=== PATIENT | female | born 1930 | race Caucasian/White ===

== ENCOUNTER 2017-08-25 14:52 | Inpatient (IN) | payer MEDICARE, OTHER ==
[~2017-08-25] VITALS: Ht 170.2 cm; Wt 88.0 kg
[~2017-08-25 14:52] MED LIST: ATEN50TA PO; HYDR-3204 PO; HYDR-4076 PO; LEVO500T15 PO; PRAV20TA4 PO
--- NOTE | 2017-08-25 14:55 | NUR ---
BB RA 80 FROM HOME ALTERED MENTAL STATUS, HYPOTENSIVE. BS 114 IN FIELD. PATIENT REPSONDS TO PAINFUL STIMULI, UNABLE TO OBTAIN HISTORY. BREATHING EVEN AND UNLABORED. PATIENT PLACED ON SIMPLE MASK, O2 SATURATION 89% ON ROOM AIR. AWAITING MD ORDERS.
[2017-08-25] MEDS ORDERED: IV NS 0.9% 1,000 ML BAG IV ONE (15:30)
[2017-08-25] MEDS ORDERED: CEFTRIAXONE 1GM BAG (ER ONLY) 50 ML IV ONE ×2 (15:30→15:51)
--- NOTE | 2017-08-25 15:36 | NUR ---
CALLED NURSING SUP. FOR TELE BED
--- NOTE | 2017-08-25 15:40 | NUR ---
SECOND IV STARTED ON LAC, 18 G. PATENT AND INTACT.
[2017-08-25 15:54] LABS: BASOPHILS % (AUTO) 0.4 % (0.0-2.0); EOSINOPHILS # (AUTO) 0.2 /CMM (0.0-0.7); EOSINOPHILS % (AUTO) 3.1 % (0.0-6.0); HEMATOCRIT 35 % (33-45); HEMOGLOBIN 11.5 g/dL (11.5-14.8); LYMPHOCYTES # (AUTO) 1.9 /CMM (0.8-4.8); LYMPHOCYTES % (AUTO) 25.9 % (20.0-44.0); MEAN CORPUSCULAR HEMOGLOBIN 30 PG (26.0-33.0); MEAN CORPUSCULAR HGB CONC 33 g/dl (31.0-36.0); MEAN CORPUSCULAR VOLUME 91 fL (82-100); MONOCYTES # (AUTO) 0.5 /CMM (0.1-1.30); NEUTROPHILS # (AUTO) 4.7 /CMM (1.8-8.9); NEUTROPHILS % (AUTO) 63.6 % (43.0-81.0); PLATELET COUNT (AUTO) 250 /CMM (150-450); RDW COEFFICIENT OF VARIATION 12.9 (11.5-15.0); RED BLOOD CELL COUNT(AUTO) 3.86 MIL/uL (4.0-5.2); WHITE BLOOD COUNT (AUTO) 7.3 K/uL (4.3-11.0)
[2017-08-25 16:08] LABS: INR 0.95 (0.87-1.13); PROTHROMBIN TIME 9.9 SECS (9.5-12.7)
[2017-08-25 16:09] LABS: TROPONIN I < 0.017 ng/mL (0.00-0.056)
[2017-08-25] MEDS ORDERED: HYDR-3652 PO (16:09)
[2017-08-25] MEDS ORDERED: VENL75CA62 PO (16:09)
[2017-08-25] MEDS ORDERED: CLON0.1T PO (16:09)
[2017-08-25] MEDS ORDERED: LOSA100T15 PO (16:09)
--- NOTE | 2017-08-25 16:10 | NUR ---
PATIENT TAKEN TO CT VIA STRETCHER.
[2017-08-25 16:12] LABS: CALCIUM, SERUM 9.3 mg/dL (8.5-10.1); CARBON DIOXIDE 28 mmol/L (21-32); CHLORIDE 103 mmol/L (98-107); CREATININE 1.3 mg/dL (0.6-1.3); GLUCOSE 111 mg/dL (74-106); POTASSIUM 4.3 mmol/L (3.5-5.1); SODIUM SERUM 138 mmol/L (136-145); UREA NITROGEN, BLOOD 27 mg/dL (7-18)
[2017-08-25 16:26] LABS: ALANINE AMINOTRANSFERASE 28 U/L (12-78); ALBUMIN 3.1 g/dL (3.4-5.0); ALKALINE PHOSPHATASE 78 U/L (46-116); ASPARTATE AMINOTRANSFERASE 21 U/L (15-37); BILIRUBIN,DIRECT 0.1 mg/dL (0.0-0.2); BILIRUBIN,TOTAL 0.3 mg/dL (0.2-1.0); TOTAL PROTEIN, SERUM 6.4 g/dL (6.4-8.2)
--- NOTE | 2017-08-25 16:53 | NUR ---
DR.RUTHERFORD RICHY COMMUNICATIONS PROJECT MANAGER, TRANSFERRED CALL TO
--- NOTE | 2017-08-25 17:02 | NUR ---
URINE OBTAINED VIA STRAIGHT CATH PER MD ORDERS AND SENT TO LAB.
[2017-08-25 17:08] LABS: APPEARANCE,URINE Slightly Cloudy (CLEAR); BILIRUBIN,URINE Negative (NEGATIVE); BLOOD, URINE Negative Ery/uL (NEGATIVE); COLOR,URINE Yellow (YELLOW); KETONES,URINE Negative (NEGATIVE); LEUKOCYTE ESTERASE ,URINE Small (NEGATIVE); NITRITE, URINE Negative (NEGATIVE); PROTEIN,URINE Negative (NEGATIVE); UGLUCOSE Negative (NEGATIVE); UROBILINOGEN,URINE 0.2 EU/dL (0.2)
[2017-08-25 17:29] LABS: BACTERIA,URINE Few /HPF (None Seen); RBC,URINE NONE SEEN /HPF (0-2); SQUAMOUS EPITHELIAL CELL,UR Few /HPF (None Seen)
[2017-08-25] MEDS ORDERED: ONDANSETRON HCL/PF 4 MG/2 ML VIAL IVP PRN (17:30)
[2017-08-25] MEDS ORDERED: ZOLPIDEM TARTRATE 5 MG TABLET PO PRN (17:30)
[2017-08-25] MEDS ORDERED: Z GUARD REMEDY 2 OZ OINT TP PRN (17:30)
[2017-08-25] MEDS ORDERED: MAG HYDROX/AL HYDROX/SIMETH 30 ML UDC PO PRN (17:30)
[2017-08-25] MEDS ORDERED: HYDROCODONE/APAP 5/325MG 1 EACH TABLET PO PRN (17:30)
[2017-08-25] MEDS ORDERED: ACETAMINOPHEN 325 MG TABLET PO PRN (17:30)
[2017-08-25] MEDS ORDERED: MAGNESIUM HYDROXIDE 30 ML UDC PO PRN (17:30)
--- NOTE | 2017-08-25 17:38 | NUR ---
TELE 322-2
--- NOTE | 2017-08-25 18:02 | NUR ---
REPORT GIVEN TO RNALEX FOR ADMISSION, PENDING CTPA
[2017-08-25] MEDS ORDERED: IOHEXOL-350 100 ML VIAL IV ONE (18:04)
[2017-08-25] MEDS ORDERED: IV NS 0.9% 250 ML IV ONE (18:05)
--- NOTE | 2017-08-25 18:13 | NUR ---
PATIENT TAKEN TO CTPA VIA STRETCHER.
--- NOTE | 2017-08-25 18:28 | NUR ---
PATIENT RETURNED FROM CT IN STABLE CONDITION.
--- NOTE | 2017-08-25 19:11 | NUR ---
REPORT RECEIVED FROM NAVDEEP PATEL FOR JERO.
--- NOTE | 2017-08-25 19:15 | NUR ---
REPORT GIVEN TO JUNIOR RECRUITERIMAN SETHI FOR JERO.
--- NOTE | 2017-08-25 19:30 | NUR ---
PATIENT TRANSPORTED TO [facility] VIA ACLS PROTOCOL FOR ADMISSION. RN, ALEX/JAY TO PROVIDE JERO.
--- NOTE | 2017-08-25 19:30 | NUR ---
FRONT MAN OPENING NOTES RECEIVE PT VIA GURSANDRA FROM E.R ACLS PROTOCOL PT A/O X1, NO S/S OF DISTRESS NOTED. TOLERATING ROOM AIR NOW 95% STABLE CONDITION. BREATHING EVEN AND UNLABORED, SAFETY MEASURES IN PLACE, BED LOCKED AND IN LOWEST POSITION, CALL LIGHT IN REACH. WILL CONTINUE TO MONITOR.
[2017-08-25] MEDS: CEFTRIAXONE 1 G in IV D5W 50 ML IV SCH (19:58)
[2017-08-25 20:00] VITALS: BP 147/79
--- NOTE | 2017-08-25 21:00 | NUR ---
HEAD TO TOE ASSESSMENT IS DONE SKIN IS INTACT, ASSISTED AMBULATE TO THE RESTROOM WITH 1 ASSIST, VOIDED FREELY
--- NOTE | 2017-08-25 23:40 | NUR ---
PATIENT NO COMPLAINS AT THIS TIME NO SOB NO CHEST PAIN WILL CONTINUE TO MONITOR
[2017-08-26] VITALS: BP 141/74
[2017-08-26 04:00] VITALS: BP 147/69
--- NOTE | 2017-08-26 06:33 | NUR ---
MS RN CLOSING NOTES RESTING IN BED ASLEEP AND EASILY AWAKEN. HEAD OF BED ELEVATED FOR BETTER LUNG EXPANSION, TOLERATING ROOM AIR 02 SAT 98% PT WAS MOVED TO 325-1 WITH NO INCIDENT. RESPIRATIONS EVEN AND UNLABORED. IN STABLE CONDITION NO S/S OF ACUTE DISTRESS, NO COMPLAINS OF PAIN AT THIS TIME. NO COMPLAINS OF CHEST PAIN THROUGHOUT THE SHIFT. AFEBRILE, NURSING CARE RENDERED, NEEDS ATTENDED AND ANTICIPATED, KEPT CLEAN AND DRY AND COMFORTABLE. GOOD SKIN CARE PROVIDED. FREQUENT VISUAL CHECK DONE FOR SAFETY EVERY 2 HOURS. SAFE HAZARD FREE ENVIRONMENT PROVIDED. CALL LIGHT WITHIN EASY TO REACH, ON LOW BED AT ALL TIMES TO ENSURE SAFETY, WILL ENDORSE TO THE NEXT SHIFT CONTINUE PLAN OF CARE. Addendum: 08/26/17 at 0640 by JYA ADAMS RN ADDENDUM: MISTAKEN ENTRY DISREGARD THIS DOCUMENTATION THIS FOR DIFFERENT PATIENT
--- NOTE | 2017-08-26 06:41 | NUR ---
COGENERATION OPERATOR CLOSING NOTES RESTING IN BED ASLEEP AND EASILY AWAKEN. A/O X1, TOLERATING ROOM AIR 02 SAT 94%, HOB, RESPIRATIONS EVEN AND UNLABORED. ATTACHED TO TELE MONITOR SR, 90'S IN STABLE CONDITION NO S/S OF ACUTE DISTRESS, NO COMPLAINS OF PAIN AT THIS TIME. NO COMPLAINS OF CHEST PAIN THROUGHOUT THE SHIFT. AFEBRILE, KEPT CLEAN AND DRY AND COMFORTABLE. NURSING CARE RENDERED, NEEDS ATTENDED AND ANTICIPATED, GOOD SKIN CARE PROVIDED. FREQUENT VISUAL CHECK DONE FOR SAFETY EVERY 2 HOURS. SAFE HAZARD FREE ENVIRONMENT PROVIDED. CALL LIGHT WITHIN EASY TO REACH, ON LOW BED AT ALL TIMES TO ENSURE SAFETY, WILL ENDORSE TO THE NEXT SHIFT CONTINUE PLAN OF CARE.
--- NOTE | 2017-08-26 07:05 | NUR ---
CERTIFIED NURSES' AIDE OPENING NOTES RECEIVED PT FROM NIGHTSHIFT NURSE IN STABLE CONDITION. PT IS A/O X1 AND CONFUSED. NO SOB OR SIGNS OF DISTRESS NOTED. BREATHING IS EVEN AND UNLABORED. PT IS ON ROOM AIR AND SATING WELL AT 95%. PT IS SR ON THE TELE MONITOR WITH A HR OF 84. MULTIPLE IVS NOTED ON RIGHT AC 20G AND LEFT AC 18G. BOTH IVS ARE PATENT TO NS FLUSH AND INTACT. NO REDNESS OR SIGNS OF INFILTRATION NOTED. BED IN LOW LOCKED POSITION, SIDE RAILS UP X3, CALL LIGHT WITHIN REACH, BED ALARM ON. WILL CONTINUE TO MONITOR
[2017-08-26 08:00] VITALS: BP 153/81
[2017-08-26 08:38] LABS: CALCIUM, SERUM 9.1 mg/dL (8.5-10.1); CARBON DIOXIDE 29 mmol/L (21-32); CHLORIDE 105 mmol/L (98-107); CREATININE 0.9 mg/dL (0.6-1.3); GLUCOSE 128 mg/dL (74-106); PHOSPHORUS 3.6 mg/dL (2.5-4.9); POTASSIUM 4.3 mmol/L (3.5-5.1); SODIUM SERUM 144 mmol/L (136-145); UREA NITROGEN, BLOOD 18 mg/dL (7-18)
[2017-08-26] MEDS: VENLAFAXINE XR 75 MG CAP.SR.24H PO SCH (08:53)
[2017-08-26 08:55] LABS: BASOPHILS % (AUTO) 0.3 % (0.0-2.0); EOSINOPHILS % (AUTO) 0.1 % (0.0-6.0); HEMATOCRIT 40 % (33-45); HEMOGLOBIN 12.9 g/dL (11.5-14.8); LYMPHOCYTES # (AUTO) 0.8 /CMM (0.8-4.8); LYMPHOCYTES % (AUTO) 4.9 % (20.0-44.0); MEAN CORPUSCULAR HEMOGLOBIN 29 PG (26.0-33.0); MEAN CORPUSCULAR HGB CONC 32 g/dl (31.0-36.0); MEAN CORPUSCULAR VOLUME 92 fL (82-100); MONOCYTES # (AUTO) 0.8 /CMM (0.1-1.30); MONOCYTES % (AUTO) 4.9 % (2.0-12.0); NEUTROPHILS # (AUTO) 15.1 /CMM (1.8-8.9); NEUTROPHILS % (AUTO) 89.8 % (43.0-81.0); PLATELET COUNT (AUTO) 242 /CMM (150-450); RDW COEFFICIENT OF VARIATION 12.7 (11.5-15.0); RED BLOOD CELL COUNT(AUTO) 4.38 MIL/uL (4.0-5.2); WHITE BLOOD COUNT (AUTO) 16.8 K/uL (4.3-11.0)
--- NOTE | 2017-08-26 14:53 | NUR ---
MS RN NOTES PT IS TRYING TO PULL OUT IVS AND GET OUT OF BED. DR GAYLE WAS CALLED AND PLACED AN ORDER FOR BILATERAL SOFT WRIST RESTRAINTS
[2017-08-26 16:00] VITALS: BP 137/58
[2017-08-26] MEDS: LORAZEPAM 1 MG TABLET PO PRN (17:16)
--- NOTE | 2017-08-26 18:53 | NUR ---
MS RN CLOSING NOTES PT REMAINS IN STABLE CONDITION. ALL NEEDS WERE MET DURING SHIFT AND ORDERS CARRIED OUT ACCORDINGLY. ALL DUE MEDS GIVEN. PT DENIES ANY SOB AT THIS TIME. BREATHING REMAINED EVEN AND UNLABORED ALL THROUGHOUT SHIFT. SAFETY MEASURES REMAIN IN PLACE. WILL ENDORSE TO NIGHTSHIFT NURSE FOR JERO
--- NOTE | 2017-08-26 19:15 | NUR ---
MS/RN NOTES RECEIVED PT. LYING IN BED AWAKE, ALERT AND ORIENTED X1-2 WITH PERIODS OF CONFUSION. BREATHING EVEN AND UNLABORED ON ROOM AIR. NO SOB, RESPIRATORY DISTRESS OR COMPLAINTS OF PAIN NOTED AT THIS TIME. PT. WITH LEFT AC 18 GAUGE IV SALINE LOCK PRESENT, PATENT AND INTACT. BED LOCKED AND IN LOWEST POSITION, SIDE RAILS UP X2, BED ALARM ON, CALL LIGHT WITHIN REACH, WILL CONTINUE TO MONITOR.
[2017-08-26 20:00] VITALS: BP 132/60
[2017-08-26] MEDS: CEFTRIAXONE 1 G in IV D5W 50 ML IV SCH (20:14)
--- NOTE | 2017-08-26 20:25 | NUR ---
MS/RN NOTES PT. IS CALM, QUIET, LYING IN BED RESTING. PT. DOES NOT NEED BILATERAL SOFT WRIST RESTRAINTS AT THIS TIME. BED LOCKED AND IN LOWEST POSITION, SIDE RAILS UP X3, CALL LIGHT WITHIN REACH, WILL CONTINUE TO MONITOR.
--- NOTE | 2017-08-27 06:50 | NUR ---
MS/RN NOTES PT. IS LYING IN BED RESTING. BREATHING EVEN AND UNLABORED ON ROOM AIR. NO SOB, RESPIRATORY DISTRESS OR COMPLAINTS OF PAIN NOTED AT THIS TIME AND THROUGHOUT SHIFT. PT. WITH LEFT AC 18 GAUGE IV SALINE LOCK PRESENT, PATENT AND INTACT. ALL PT. NEEDS MET. BED LOCKED AND IN LOWEST POSITION, SIDE RAILS UP X2, BED ALARM ON, CALL LIGHT WITHIN REACH, WILL ENDORSE TO DAYSHIFT NURSE FOR CONTINUITY OF CARE.
[2017-08-27 07:57] VITALS: BP 140/97
[2017-08-27 08:00] VITALS: BP 140/97
--- NOTE | 2017-08-27 08:00 | NUR ---
RN NOTES RECEIVED PATIENT IN THE T BED, A/O X2/3, NO ACUTE DISTRESS, NO RESPIRATORY DISTRESS, IV LINE LEFT AC AREA INTACT, PT MED COMPLIANT, V/S TAKEN, PATIENT HAS NO ACUTE DISTRESS, CALL LIGHT WITHIN TO REACH, NEEDS ATTENDED AND ANTICIPATED, PATIENT TURN AND REPOSITION SELF IN THE BED, SAFETY PRECAUTION MAINTAINED WITH HELP OF RECYCLING ATTENDANT ALL THE TIME.
[2017-08-27] MEDS: VENLAFAXINE XR 75 MG CAP.SR.24H PO SCH (09:08)
[2017-08-27] MEDS: HYDROCODONE/APAP 5/325MG 1 EACH TABLET PO PRN ×3 (09:17→21:23)
--- NOTE | 2017-08-27 09:17 | NUR ---
RN NOTES ADMINISTERED NARCO 5/325 MG PO PRN FOR GENERALIZED PAIN 03/25, PER PATIENT REQUEST, V/S TAKEN BP -140/97, P-115, CONTINUED MONITORING. PATIENT HAS NO RESPIRATORY DISTRESS, CALM, REDIRECTABLE, CALL LIGHT WITHIN TO REACH, SAFETY PRECAUTION MAINTAINED ALL THE TIME. BED ALARM ON.
--- NOTE | 2017-08-27 11:35 | NUR ---
RN NOTES PATIENT IN THE BED, NO ACUTE DISTRESS, MEDICATION WERE ADMINISTERED FOR PAIN EFFECTIVE, PATIENT WATCHING TV,. CALL LIGHT WITHIN TO REACH, SAFETY PRECAUTION MAINTAINED ALL THE TIME. BED ALARM ON. CONTINUED MONITORING.
--- NOTE | 2017-08-27 14:14 | NUR ---
RN NOTES PATIENT IN THE BED, NO ACUTE DISTRESS, TALKING BY PHONE, NO ACUTE DISTRESS, V/S RETAKEN BP-131/64, P-105. NOTIFIED DR GAYLE AND GET ORDER OF PATIENT HOME MEDICATION. BED ALARM ON, CALL LIGHT WITHIN TO REACH, SAFETY PRECAUTION MAINTAINED ALL THE TIME.
[2017-08-27] MEDS ORDERED: CLONIDINE HCL 0.1 MG TABLET PO PRN ×2 (14:30→21:00)
[2017-08-27 14:47] LABS: BASOPHILS % (AUTO) 0.2 % (0.0-2.0); EOSINOPHILS # (AUTO) 0.2 /CMM (0.0-0.7); EOSINOPHILS % (AUTO) 2.2 % (0.0-6.0); HEMATOCRIT 37 % (33-45); HEMOGLOBIN 11.8 g/dL (11.5-14.8); LYMPHOCYTES # (AUTO) 1.7 /CMM (0.8-4.8); MEAN CORPUSCULAR HEMOGLOBIN 30 PG (26.0-33.0); MEAN CORPUSCULAR HGB CONC 32 g/dl (31.0-36.0); MEAN CORPUSCULAR VOLUME 91 fL (82-100); MONOCYTES # (AUTO) 0.8 /CMM (0.1-1.30); MONOCYTES % (AUTO) 7.8 % (2.0-12.0); NEUTROPHILS % (AUTO) 71.8 % (43.0-81.0); PLATELET COUNT (AUTO) 286 /CMM (150-450); RDW COEFFICIENT OF VARIATION 13.1 (11.5-15.0); RED BLOOD CELL COUNT(AUTO) 4.02 MIL/uL (4.0-5.2); WHITE BLOOD COUNT (AUTO) 9.7 K/uL (4.3-11.0)
[2017-08-27 15:04] LABS: ALANINE AMINOTRANSFERASE 22 U/L (12-78); ALBUMIN 2.9 g/dL (3.4-5.0); ALKALINE PHOSPHATASE 74 U/L (46-116); ASPARTATE AMINOTRANSFERASE 18 U/L (15-37); BILIRUBIN,TOTAL 0.2 mg/dL (0.2-1.0); CARBON DIOXIDE 28 mmol/L (21-32); CHLORIDE 104 mmol/L (98-107); CREATININE 1.2 mg/dL (0.6-1.3); GLUCOSE 168 mg/dL (74-106); POTASSIUM 3.7 mmol/L (3.5-5.1); SODIUM SERUM 139 mmol/L (136-145); TOTAL PROTEIN, SERUM 6.7 g/dL (6.4-8.2); UREA NITROGEN, BLOOD 19 mg/dL (7-18)
[2017-08-27 16:00] VITALS: BP_SYST 136; BP_SYST 146; BP_DIAS 76; BP_DIAS 89
[2017-08-27] MEDS ORDERED: LOSARTAN POTASSIUM 50 MG TABLET PO SCH (17:00)
--- NOTE | 2017-08-27 17:30 | NUR ---
RN NOTES PATIENT IN THE BED, NO RESPIRATORY DISTRESS, PATIENT C/O PAIN 8/10 GENERALIZED, ADMINISTERED NARCO 5/325 MG PO PRN , PER PATIENT REQUEST, V/S TAKEN BP 146/76, P-95, NEEDS ATTENDED AND ANTICIPATED, CALL LIGHT WITHIN TO REACH, BED ALARM ON, SAFETY PRECAUTION MAINTAINED ALL THE TIME.
--- NOTE | 2017-08-27 19:00 | NUR ---
RN NOTES PATIENT IN THE BED, MEDICATION WERE ADMINISTERED FOR PAIN EFFECTIVE, V/S STABLE, MED COMPLIANT. CALL LIGHT WITHIN TO REACH, NEEDS ATTENDED AND ANTICIPATED. NO ACUTE DISTRESS, NO RESPIRATORY DISTRESS. ENDORSED ONCOMING NURSE FOR CONTINUATION OF CARE.
--- NOTE | 2017-08-27 19:40 | NUR ---
RN OPENING NOTES PT IS RESTING IN BED. NO APPARENT S/S OF PAIN OR DISTRESS. NO COMPLAINTS OF SOB OR RESPIRATORY DISTRESS. PT HAS A LEFT AC #18 IV, INTACT AND PATENT, HL. SAFETY PRECAUTIONS IN PLACE. BED IN LOW, LOCKED POSITION, 3X SIDE RAILS UP, AND CALL LIGHT WITHIN REACH. WILL CONTINUE TO MONITOR PT.
[2017-08-27 20:00] VITALS: BP 149/63
[2017-08-27] MEDS: CEFTRIAXONE 1 G in IV D5W 50 ML IV SCH (20:35)
[2017-08-27] MEDS: CLONIDINE HCL 0.1 MG TABLET PO SCH ×3 (21:00→21:46)
--- NOTE | 2017-08-27 21:23 | NUR ---
PT REQUESTED PRN NORCO 5/325MG FOR PAIN IN THE ABDOMEN (05/25). WILL ADMINISTER AND CONTINUE TO MONITOR.
--- NOTE | 2017-08-27 21:23 | NUR ---
PT REQUESTED MILK OF MAGNESIA FOR CONSTIPATION 3xDAYS. WILL ADMINISTER AND CONTINUE TO MONITOR.
[2017-08-27] MEDS: LORAZEPAM 1 MG TABLET PO PRN (22:22)
--- NOTE | 2017-08-27 22:22 | NUR ---
PT REFUSED ATIVAN. PT REQUESTED PRN ATIVAN. PRIOR TO ADMINISTRATION PT STATED THAT SHE "DID NOT WANT TO TAKE ATIVAN ANYMORE."
--- NOTE | 2017-08-28 03:16 | NUR ---
PT REQUESTED PRN AMBIEN 5MG. PT STATED SHE WAS "UNABLE TO SLEEP". WILL ADMINISTER AND CONTINUE TO MONITOR.
[2017-08-28 06:35] LABS: BASOPHILS % (AUTO) 0.4 % (0.0-2.0); EOSINOPHILS # (AUTO) 0.3 /CMM (0.0-0.7); EOSINOPHILS % (AUTO) 3.5 % (0.0-6.0); HEMATOCRIT 36 % (33-45); HEMOGLOBIN 11.7 g/dL (11.5-14.8); LYMPHOCYTES # (AUTO) 2.1 /CMM (0.8-4.8); LYMPHOCYTES % (AUTO) 23.8 % (20.0-44.0); MEAN CORPUSCULAR HEMOGLOBIN 30 PG (26.0-33.0); MEAN CORPUSCULAR HGB CONC 33 g/dl (31.0-36.0); MEAN CORPUSCULAR VOLUME 92 fL (82-100); MONOCYTES # (AUTO) 0.9 /CMM (0.1-1.30); MONOCYTES % (AUTO) 9.7 % (2.0-12.0); NEUTROPHILS # (AUTO) 5.5 /CMM (1.8-8.9); NEUTROPHILS % (AUTO) 62.6 % (43.0-81.0); PLATELET COUNT (AUTO) 254 /CMM (150-450); RDW COEFFICIENT OF VARIATION 12.9 (11.5-15.0); WHITE BLOOD COUNT (AUTO) 8.8 K/uL (4.3-11.0)
[2017-08-28 07:00] LABS: CALCIUM, SERUM 8.9 mg/dL (8.5-10.1); CARBON DIOXIDE 29 mmol/L (21-32); CHLORIDE 103 mmol/L (98-107); CREATININE 1.1 mg/dL (0.6-1.3); GLUCOSE 92 mg/dL (74-106); MAGNESIUM 2.1 mg/dL (1.8-2.4); PHOSPHORUS 4.2 mg/dL (2.5-4.9); POTASSIUM 3.9 mmol/L (3.5-5.1); SODIUM SERUM 139 mmol/L (136-145); UREA NITROGEN, BLOOD 24 mg/dL (7-18)
--- NOTE | 2017-08-28 07:18 | NUR ---
RN CLOSING NOTES PT IS SLEEPING IN BED. NO SIGNIFICANT CHANGES OVERNIGHT. NO APPARENT S/S OF PAIN OR DISTRESS. NO COMPLAINTS OF SOB OR RESPIRATORY DISTRESS. PT HAS A LEFT AC #18 IV, INTACT AND PATENT, HL. PT GIVEN MOM TO ADDRESS CONSTIPATION x3 DAYS, NO BM OVERNIGHT. SAFETY PRECAUTIONS IN PLACE. BED IN LOW, LOCKED POSITION, 3X SIDE RAILS UP, AND CALL LIGHT WITHIN REACH. WILL ENDORSE TO THE DAY SHIFT NURSE FOR CONTINUITY OF CARE.
[2017-08-28 08:00] VITALS: BP 129/72
--- NOTE | 2017-08-28 08:00 | NUR ---
RN NOTES RECEIVED PATIENT IN THE BED, NO RESPIRATORY DISTRESS, PATIENT REFUSED PAIN AT THIS TIME. ENCOURAGED TO EXPRESS FEELINGS AND CONCERNS, PATIENT MED COMPLIANT., V/S STABLE. PATIENT HAS A IV LINE LEFT AC AREA INTACT, NEEDS ATTENDED AND ANTICIPATED, CALL LIGHT WITHIN TO REACH, SAFETY PRECAUTION MAINTAINED ALL THE TIME.
[2017-08-28] MEDS: VENLAFAXINE XR 75 MG CAP.SR.24H PO SCH (08:46)
[2017-08-28] MEDS ORDERED: LOSARTAN POTASSIUM 50 MG TABLET PO SCH (09:00)
--- NOTE | 2017-08-28 12:30 | NUR ---
RN NOTES PATIENT WITH THE RT AT THIS TIME, WALKING IN THE HALLWAY, NO ACUTE /NO RESPIRATORY DISTRESS, NO C/O PAIN,PT A/O X3. CONTINUED MONITORING.
[2017-08-28 16:00] VITALS: BP 146/78
--- NOTE | 2017-08-28 18:10 | NUR ---
RN NOTES PATIENT STABLE AT THIS TIME, GOING TO GO HOME. NO ACUTE DISTRESS, NO RESPIRATORY DISTRESS, NO C/O PAIN. PATIENT GOING TO D/C HOME. CALL LIGHT WITHIN TO REACH, SAFETY PRECAUTION MAINTAINED ALL THE TIME.
[2017-08-28] MEDS ORDERED: CEPH-570 PO (18:38)
--- NOTE | 2017-08-28 19:03 | NUR ---
DAYCARE TEACHER NOTES PATIENT DISCHARGE AT THIS TIME GOING HOME. PATIENT A/O X3, MED COMPLIANT, V/S STABLE, NO C/O PAIN, MEDICALLY STABLE TO D/C AT THIS TIME. MED RECONCILIATION, AND DISCHARGE ORDER REVIEWED AND EXPLAINED TO PATIENT AND SON. PATIENT VERBALIZED UNDERSTANDING. BELONGING RETURNED BACK TO THE PATIENT. ESCORTED PATIENT TO THE LOBBY FOR SAFETY. PATIENT STAFFING ACCOUNT MANAGER BY WILFRED RAMIREZ PHONE # [phone].
== END 2017-08-28 19:07 | disposition home or self-care (01) | DRG 871 ==
LOC: ER 14:52 → TELE 17:50 → MED 08-26 11:14
PROVIDERS: ADMIT Internal Medicine; ATTEND Internal Medicine
DX: A41.9 Sepsis, unspecified organism (principal); G92 Toxic encephalopathy; J96.01 Acute respiratory failure with hypoxia; E43 Unspecified severe protein-calorie malnutrition; N17.0 Acute kidney failure with tubular necrosis; I50.33 Acute on chronic diastolic (congestive) heart failure; G93.89 Other specified disorders of brain; F03.90 Unspecified dementia, unspecified severity, without behavioral disturbance, psychotic disturbance, mood disturbance, and anxiety; N39.0 Urinary tract infection, site not specified; I11.0 Hypertensive heart disease with heart failure; M79.7 Fibromyalgia; Z96.643 Presence of artificial hip joint, bilateral; Z98.2 Presence of cerebrospinal fluid drainage device; E78.5 Hyperlipidemia, unspecified; Z88.2 Allergy status to sulfonamides; Z79.899 Other long term (current) drug therapy
CPT/HCPCS: 36415; 70450-TC; 71010-TC; 80048-TC; 80053-TC; 80076-TC; 81000-TC; 82962-TC; 83605-TC; 83735-TC; 84100-TC; 84484-TC; 85025-TC; 85730-TC; 87040-TC; 87081-TC; 87086-TC; 93307-TC; A4606; J0696; J7030; J7050; J7060; Q9967; Z7610

== ENCOUNTER 2017-09-19 12:04 | Emergency (ER) | payer OTHER ==
[~2017-09-19 12:04] MED LIST changes: -ATEN50TA PO; +CEPH-570 PO; +CLON0.1T PO; -HYDR-3204 PO; +HYDR-3652 PO; -HYDR-4076 PO; -LEVO500T15 PO; +LOSA100T15 PO; -PRAV20TA4 PO; +VENL75CA62 PO
--- NOTE | 2017-09-19 12:04 | NUR ---
RECIEVED PT TO ED BED 04, PT WAS BB RA FROM HOME FOR AMS, POSSIBLE OD OF NARCOTICS. SON CALLED 911. PT WAS GIVEN NARCAN EN ROUTE. PT STILL APPEARS DROWSY AND UNABLE TO PROVIDE INFORMATON AT THIS TIME. RESPONDS TO TACTILE AND PAINFUL STIMULI. GOWNED AND PLACED ON CONT MONITORING. ALL NEEDS ARE ATTENDED, KEPT WARM AND COMFORTABLE. WILL CONT TO MONITOR
[2017-09-19] MEDS ORDERED: NALOXONE PREFILLED SYRINGE 2 MG/2 ML SYRINGE ONE (12:12)
--- NOTE | 2017-09-19 12:18 | NUR ---
PT IS NOW MORE AWAKE AFTER NARCAN. PT STS SHE TAKES NARCOTIC FOR CHRONIC PAIN. ON CONT MONITORING.
[2017-09-19] MEDS ORDERED: IV NS 0.9% 1,000 ML BAG IV ONE (12:30)
[2017-09-19] MEDS ORDERED: NALOXONE HCL 0.4 MG/ML AMPUL IV ONE (12:30)
[2017-09-19 12:41] LABS: BASOPHILS # (AUTO) 0.1 /CMM (0.0-0.2); BASOPHILS % (AUTO) 1.7 % (0.0-2.0); EOSINOPHILS # (AUTO) 0.2 /CMM (0.0-0.7); EOSINOPHILS % (AUTO) 3.5 % (0.0-6.0); HEMATOCRIT 35 % (33-45); HEMOGLOBIN 11.6 g/dL (11.5-14.8); LYMPHOCYTES # (AUTO) 1.4 /CMM (0.8-4.8); LYMPHOCYTES % (AUTO) 21.3 % (20.0-44.0); MEAN CORPUSCULAR HEMOGLOBIN 29 PG (26.0-33.0); MEAN CORPUSCULAR HGB CONC 33 g/dl (31.0-36.0); MEAN CORPUSCULAR VOLUME 89 fL (82-100); MONOCYTES # (AUTO) 0.4 /CMM (0.1-1.30); MONOCYTES % (AUTO) 6.5 % (2.0-12.0); NEUTROPHILS # (AUTO) 4.4 /CMM (1.8-8.9); PLATELET COUNT (AUTO) 232 /CMM (150-450); RDW COEFFICIENT OF VARIATION 12.7 (11.5-15.0); RED BLOOD CELL COUNT(AUTO) 3.96 MIL/uL (4.0-5.2); WHITE BLOOD COUNT (AUTO) 6.5 K/uL (4.3-11.0)
[2017-09-19 12:49] LABS: CARBON DIOXIDE 27 mmol/L (21-32); CHLORIDE 106 mmol/L (98-107); CREATININE 1.3 mg/dL (0.6-1.3); GLUCOSE 156 mg/dL (74-106); POTASSIUM 4.2 mmol/L (3.5-5.1); SODIUM SERUM 140 mmol/L (136-145); UREA NITROGEN, BLOOD 37 mg/dL (7-18)
[2017-09-19 12:57] LABS: TROPONIN I < 0.017 ng/mL (0.00-0.056)
[2017-09-19 14:50] LABS: APPEARANCE,URINE Clear (CLEAR); BILIRUBIN,URINE Negative (NEGATIVE); BLOOD, URINE Negative Ery/uL (NEGATIVE); COLOR,URINE Yellow (YELLOW); KETONES,URINE Negative (NEGATIVE); LEUKOCYTE ESTERASE ,URINE Negative (NEGATIVE); NITRITE, URINE Negative (NEGATIVE); PH,URINE 5.5 (5.0-8.0); PROTEIN,URINE Trace mg/dl (NEGATIVE); UGLUCOSE Negative (NEGATIVE); UROBILINOGEN,URINE 0.2 EU/dL (0.2)
[2017-09-19 14:51] LABS: BACTERIA,URINE Few /HPF (None Seen); RBC,URINE 0-2 /HPF (0-2); SQUAMOUS EPITHELIAL CELL,UR Few /HPF (None Seen); WBC,URINE 0-2 /HPF (0-3)
[2017-09-19 17:38] VITALS: BP 111/64
--- NOTE | 2017-09-19 17:54 | NUR ---
Patient discharged to home in stable condition. Written and verbal after care instructions given. Patient verbalizes understanding of instruction. Assisted via wheelchair to taxi, left in stable condition
--- NOTE | 2017-09-19 17:55 | NUR ---
IV removed. Catheter intact and site benign. Pressure and 4x4 applied to site. No bleeding noted.
== END 2017-09-19 17:56 | disposition home or self-care (01) ==
LOC: ER 12:05
DX: T40.601A Poisoning by unspecified narcotics, accidental (unintentional), initial encounter (principal); Y92.89 Other specified places as the place of occurrence of the external cause; I10 Essential (primary) hypertension; M79.7 Fibromyalgia; Z96.643 Presence of artificial hip joint, bilateral; Z88.2 Allergy status to sulfonamides; Z79.899 Other long term (current) drug therapy
CPT/HCPCS: 36415; 80048-TC; 80305; 81000-TC; 84484-TC; 85025-TC; 87086-TC; J2310; J7030

== ENCOUNTER 2018-10-25 13:58 | Inpatient (IN) | payer MEDICARE, OTHER ==
[~2018-10-25] VITALS: Ht 160 cm; Wt 89.4 kg
[~2018-10-25 13:58] MED LIST changes: -HYDR-3652 PO; +HYDR-3972 PO; -LOSA100T15 PO; +LOSA100T31 PO
--- NOTE | 2018-10-25 14:25 | NUR ---
PT BIBRA FROM HOME TO ER BED 02. PER REPORT, PT WAS FOUND BY SON IN THE FLOOR. UPON INITIAL ASSESSMENT PT IS VERBALLY RESPONSIVE BUT CONFUSED, C/O L SHOULDER PAIN AND BILAT HIP PAIN. FACIAL REDNESS NOTED. GOWNED AND PLACED ON MONITOR. 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 AWAITNG MD BLACKWOOD.
--- NOTE | 2018-10-25 14:49 | NUR ---
DR WILKES AT BEDSIDE FOR EVAL.
[2018-10-25] MEDS ORDERED: IV NS 0.9% 1,000 ML BAG IV ONE ×3 (15:00→21:30)
--- NOTE | 2018-10-25 15:00 | NUR ---
IV LINE STARTED BLOOD DRAWN AND SENT TO LAB.
[2018-10-25 15:04] LABS: BASOPHILS % (AUTO) 0.4 % (0.0-2.0); EOSINOPHILS % (AUTO) 0.3 % (0.0-6.0); HEMATOCRIT 40 % (33-45); HEMOGLOBIN 13.1 g/dL (11.5-14.8); LYMPHOCYTES # (AUTO) 0.7 /CMM (0.8-4.8); LYMPHOCYTES % (AUTO) 6.1 % (20.0-44.0); MEAN CORPUSCULAR HGB CONC 33 g/dl (31.0-36.0); MEAN CORPUSCULAR VOLUME 93 fL (82-100); MONOCYTES # (AUTO) 0.7 /CMM (0.1-1.30); MONOCYTES % (AUTO) 6.3 % (2.0-12.0); NEUTROPHILS # (AUTO) 9.4 /CMM (1.8-8.9); NEUTROPHILS % (AUTO) 86.9 % (43.0-81.0); PLATELET COUNT (AUTO) 263 /CMM (150-450); RED BLOOD CELL COUNT(AUTO) 4.33 MIL/uL (4.0-5.2); WHITE BLOOD COUNT (AUTO) 10.7 K/uL (4.3-11.0)
[2018-10-25 15:32] LABS: ALANINE AMINOTRANSFERASE 28 U/L (12-78); ALBUMIN 3.9 g/dL (3.4-5.0); ALCOHOL, BLOOD < 3 mg/dL (0-0); ALKALINE PHOSPHATASE 86 U/L (46-116); ASPARTATE AMINOTRANSFERASE 36 U/L (15-37); BILIRUBIN,DIRECT 0.1 mg/dL (0.0-0.2); BILIRUBIN,TOTAL 0.4 mg/dL (0.2-1.0); CALCIUM, SERUM 9.2 mg/dL (8.5-10.1); CARBON DIOXIDE 23 mmol/L (21-32); CHLORIDE 106 mmol/L (98-107); CREATININE 1.1 mg/dL (0.6-1.3); GLUCOSE 149 mg/dL (74-106); POTASSIUM 3.7 mmol/L (3.5-5.1); SODIUM SERUM 141 mmol/L (136-145); TOTAL PROTEIN, SERUM 7.9 g/dL (6.4-8.2); UREA NITROGEN, BLOOD 32 mg/dL (7-18)
[2018-10-25 16:04] LABS: CREATINE KINASE, TOTAL 1065 U/L (26-192)
[2018-10-25 16:19] LABS: APPEARANCE,URINE Clear (CLEAR); BILIRUBIN,URINE Negative (NEGATIVE); BLOOD, URINE Small Ery/uL (NEGATIVE); COLOR,URINE Yellow (YELLOW); KETONES,URINE Trace (NEGATIVE); LEUKOCYTE ESTERASE ,URINE Small (NEGATIVE); NITRITE, URINE Positive (NEGATIVE); PH,URINE 5.5 (5.0-8.0); PROTEIN,URINE 30 mg/dl (NEGATIVE); UGLUCOSE Negative (NEGATIVE); UROBILINOGEN,URINE 0.2 EU/dL (0.2)
[2018-10-25] MEDS ORDERED: HYDR-4076 PO (16:42)
[2018-10-25 16:49] LABS: BACTERIA,URINE Many /HPF (None Seen); SQUAMOUS EPITHELIAL CELL,UR Few /HPF (None Seen); WBC,URINE 21-50 /HPF (0-3)
[2018-10-25 17:15] LABS: THYROID STIMULATING HORMONE 1.855 uIU/mL (0.358-3.74)
--- NOTE | 2018-10-25 17:17 | NUR ---
MD BEACH SPOKE WITH MD WILKES REGARDING THIS PATIENT
[2018-10-25] MEDS ORDERED: CEFTRIAXONE 1 G in IV D5W 50 ML IV ONE (17:30)
[2018-10-25] MEDS ORDERED: CEFTRIAXONE 1GM BAG (ER ONLY) 50 ML IV ONE (17:51)
--- NOTE | 2018-10-25 19:05 | NUR ---
REPORT TO ROGELIO SETHI FOR JERO.
--- NOTE | 2018-10-25 19:05 | NUR ---
BRYANFT MESSAGE FOR CHRIS JAUREGUI [facility] COORDINATOR REGARDING POSSIBLE TRANSFER OF THIS PATIENT.
--- NOTE | 2018-10-25 19:48 | NUR ---
SPOKE TO VINCENT AT [facility] REGARDING LATEST TROPONIN FOR THIS PATIENT, STATED SHE WOULD NOTIFY MD AND CALL BACK WITH POSSIBLE TRANSFER DECISION.
[2018-10-25] MEDS ORDERED: IV NS 0.9% 1,000 ML IV PRN (21:19)
[2018-10-25] MEDS ORDERED: Z GUARD REMEDY 2 OZ OINT TP PRN (21:30)
[2018-10-25] MEDS ORDERED: ZOLPIDEM TARTRATE 5 MG TABLET PO PRN (21:30)
[2018-10-25] MEDS ORDERED: MAG HYDROX/AL HYDROX/SIMETH 30 ML UDC PO PRN (21:30)
[2018-10-25] MEDS ORDERED: ACETAMINOPHEN 325 MG TABLET PO PRN (21:30)
[2018-10-25] MEDS ORDERED: ONDANSETRON HCL/PF 4 MG/2 ML VIAL IVP PRN (21:30)
[2018-10-25] MEDS ORDERED: ENOXAPARIN SODIUM 40 MG/0.4 ML DISP.SYRIN SQ SCH (21:30)
[2018-10-25] MEDS ORDERED: HYDROCODONE/APAP 5/325MG 1 EACH TABLET PO PRN (21:30)
[2018-10-25] MEDS ORDERED: MAGNESIUM HYDROXIDE 30 ML UDC PO PRN (21:30)
--- NOTE | 2018-10-25 21:34 | NUR ---
SPOKE TO VINCENT AT [facility], AGREED PATIENT WILL BE ADMITED TO [facility] DUE TO ETTERS REP UNABLE TO CONTACT ACCEPTING MD.
--- NOTE | 2018-10-25 21:36 | NUR ---
PT ADMIT TO ROOM 315-2 TELE DX: SYNCOPE, RHABDOMYOLYSIS. ACCEPTING DR CORADO
--- NOTE | 2018-10-25 21:46 | NUR ---
REPORT GIVEN TO NAVDEEP DOZIER FOR JERO
[2018-10-25] MEDS ORDERED: ASPIRIN 81 MG TAB.CHEW ONE (22:08)
[2018-10-25 22:25] VITALS: BP 134/55
[2018-10-25] MEDS ORDERED: ASPIRIN 81 MG TAB.CHEW PO ONE (22:30)
--- NOTE | 2018-10-25 22:40 | NUR ---
CARDIOPULMONARY TECHNOLOGIST CHIEF NOTES ADMITTED PATIENT TRANSPORTED VIA GURNEY, CONFUSED, RESTLESS, BREATHING EVEN AND UNLABORED NO COMPLAINTS OF PAIN OR DISCOMFORT, SATING 96% ON RA, HOOKED TO TELE MONITOR, READS SINUS TACH WITH ST DEP AND PVCs, ALL NEEDS PROVIDED, INITIAL ASSESSMENT DONE,SKIN ASSESSMENT DONE, ALL SAFETY MEASURES INPLACED, IV ACCESS ON HER LEFT AC G#20 INTACT AND PATENT. ASPIRATION PRECAUTION OBSERVED, SEEN AND EXAMINED BY DR. STEPHANIE NAYAK. WILL CONTINUE TO MONITOR ACCORDINGLY.
[2018-10-26 03:22] LABS: BASOPHILS % (AUTO) 0.3 % (0.0-2.0); EOSINOPHILS % (AUTO) 1.5 % (0.0-6.0); HEMATOCRIT 37 % (33-45); HEMOGLOBIN 12.1 g/dL (11.5-14.8); LYMPHOCYTES # (AUTO) 1.2 /CMM (0.8-4.8); LYMPHOCYTES % (AUTO) 13.5 % (20.0-44.0); MEAN CORPUSCULAR HGB CONC 33 g/dl (31.0-36.0); MEAN CORPUSCULAR VOLUME 92 fL (82-100); MONOCYTES # (AUTO) 0.8 /CMM (0.1-1.30); NEUTROPHILS # (AUTO) 6.8 /CMM (1.8-8.9); NEUTROPHILS % (AUTO) 75.7 % (43.0-81.0); PLATELET COUNT (AUTO) 245 /CMM (150-450); RED BLOOD CELL COUNT(AUTO) 4.03 MIL/uL (4.0-5.2); WHITE BLOOD COUNT (AUTO) 8.9 K/uL (4.3-11.0)
[2018-10-26 03:43] LABS: B-TYPE NATRIURETIC PEPTIDE 196 PG/ML (0-125); CALCIUM, SERUM 8.7 mg/dL (8.5-10.1); CARBON DIOXIDE 21 mmol/L (21-32); CHLORIDE 111 mmol/L (98-107); GLUCOSE 120 mg/dL (74-106); MAGNESIUM 1.9 mg/dL (1.8-2.4); PHOSPHORUS 1.7 mg/dL (2.5-4.9); POTASSIUM 3.6 mmol/L (3.5-5.1); SODIUM SERUM 144 mmol/L (136-145); UREA NITROGEN, BLOOD 25 mg/dL (7-18)
[2018-10-26 03:51] LABS: CHOLESTEROL 218 mg/dL (<200); HDL CHOLESTEROL 67 mg/dL (40-60); LDL 139 mg/dL (0-99); THYROID STIMULATING HORMONE 2.943 uIU/mL (0.358-3.74); TRIGLYCERIDES 102 mg/dL (30-150)
[2018-10-26 04:00] VITALS: BP 150/70
[2018-10-26 04:47] LABS: CREATINE KINASE, TOTAL 1754 U/L (26-192)
--- NOTE | 2018-10-26 07:15 | NUR ---
telephonic nurse. pt received a&0x1, tolerating room air without distress. pt denies pain and is without s/s of distress or discomfort. pt with tele: sinus tach. pt with ivc at r ac intact but hard to flush, iv pump alarming. pt with 1:1 for safety. pt bed in lowest locked position with handrailsx2 and call colon and belongings within reach. pt briefed on poc, will reorientate and redirect as needed.
--- NOTE | 2018-10-26 07:17 | NUR ---
TIN ASSORTER NOTES PATIENT MOVED FROM ROOM 315-2 TO 311-1 STILL CONFUSED, RESTLESS, BREATHING EVEN AND UNLABORED NO COMPLAINTS OF PAIN OR DISCOMFORT, SATING 96% TO 98% ON RA, HOOKED TO TELE MONITOR, READS SINUS TACH WITH ST DEP AND PVCs, ALL NEEDS PROVIDED, ALL SAFETY MEASURES IN PLACED, IV ACCESS ON HER LEFT AC G#20 INTACT AND PATENT. ASPIRATION PRECAUTION OBSERVED, WILL ENDORSE TO AM NURSE FOR JERO.
[2018-10-26 08:00] VITALS: BP 149/66
[2018-10-26] MEDS ORDERED: IV NS 0.9% 1,000 ML IV PRN (08:46)
[2018-10-26] MEDS ORDERED: VENLAFAXINE XR 75 MG CAP.SR.24H PO SCH (09:00)
[2018-10-26] MEDS ORDERED: LOSARTAN POTASSIUM 50 MG TABLET PO SCH (09:30)
[2018-10-26] MEDS: hydrALAZINE HCL 25 MG TABLET PO SCH ×2 (09:41→17:00)
[2018-10-26] MEDS ORDERED: K PHOS NEUTRAL 250 MG TABLET PO ONE ×2 (13:30→17:00)
--- NOTE | 2018-10-26 13:30 | NUR ---
MSRKailee. PT OOB IN CHAIR FOR LUNCH.
[2018-10-26 14:24] VITALS: BP_SYST 128; BP_SYST 140; BP_SYST 146; BP_DIAS 64; BP_DIAS 76; BP_DIAS 96
[2018-10-26 16:00] VITALS: BP 111/53
--- NOTE | 2018-10-26 17:45 | NUR ---
MSNAVDEEP. PT OOB IN CHAIR FOR DINNER.
[2018-10-26] MEDS ORDERED: CEFTRIAXONE 1 G in IV D5W 50 ML IV SCH (18:00)
--- NOTE | 2018-10-26 18:08 | NUR ---
MSNR. PT WITH 1:1, TELE D/C. PT REMAINS A&0X1, ABLE TO MAKE NEEDS KNOWN AND CONVERSE APPROPRIATELY. PT TOLERATING ROOM AIR WITHOUT DISTRESS, DENIES PAIN AND WITHOUT S/S OF DISTRESS OR DISCOMFORT. PT WITH IVC A L AC INTACT AND OPERATIONAL AND SLEEVE FOR PROTECTION. BED IN LOWEST LOCKED POSITION WITH HANDRAILSX2 AND CALL FALCON WITHIN REACH. ALL DAY NURSE DUTIES ATTENDED TO AND PT IS WITHOUT CONCERN OR COMPLAINT AT THIS TIME. WILL ENDORSE TO NIGHT NURSE AT BEDSIDE FOR JERO.
--- NOTE | 2018-10-26 19:10 | NUR ---
MS/RN NOTES RECEIVED PT. LYING IN BED RESTING. PT. IS EASILY AROUSABLE TO NAME AND TOUCH. AWAKE, ALERT AND ORIENTED TO SELF. BREATHING EVEN AND UNLABORED ON ROOM AIR. NO SOB, RESPIRATORY DISTRESS OR COMPLAINTS OF PAIN NOTED AT THIS TIME. PT. WITH LEFT AC 20 GAUGE PERIPHERAL IV PRESENT, PATENT AND INTACT ADMINISTERING TO PT. NS @ 150 ML/HR. PT. WITH 1:1 SITTER PRESENT AT BEDSIDE. BED LOCKED AND IN LOWEST POSITION, SIDE RAILS UP X3, BED ALARM ON, WILL CONTINUE TO MONITOR.
--- NOTE | 2018-10-26 19:50 | NUR ---
MS/RN NOTES RECEIVED CALL FROM IMAGE SCIENTIST ALISA STATING BED IS AVAILABLE FOR PATIENT AT [facility] AND PT. NEEDS TO BE TRANSFERRED TONIGHT. [facility] TRANSPORT HAS ALREADY BEEN ARRANGED AND AMBULANCE WILL BE ARRIVING AT 2100. LOLY PEREYRA WILL BE THE NURSE TO GIVE REPORT TO AND HIS NUMBER IS . [facility] PT. IS BEING TRANSFERRED DUE TO INSURANCE.
[2018-10-26 20:00] VITALS: BP 98/57
--- NOTE | 2018-10-26 20:46 | NUR ---
Met with patient at bedside, she is confused and has a 1:1 sitter. Patient lives at home alone,her son lives in the same building checks on her frequently and provides assistance as needed. Prior to admission,she was ambulatory and independent with adl's. She owns a walker, commode and shower chair. Her pcp is from [facility]. Current plan is to transfer to [facility] per insurance request.Currently awaiting bed at [place], [place] [phone] [facility] counter caser afterhours will f/u with bedside nurse once bed is available Addendum: 10/26/18 at 2046 by CAL LÓPEZ RN Amended: Links added.
--- NOTE | 2018-10-26 21:30 | NUR ---
MS/RN NOTES DISCHARGE PAPERWORK AND EXITCARE COMPLETED. PT. UNABLE TO SIGN DUE TO MENTAL STATUS. PAPERWORK SIGNED BY 2 RN'S AND ORIGINAL PLACED IN CHART COPY PROVIDED TO EMT TRANSPORT. PT. IN STABLE CONDITION, VITAL SIGNS STABLE. REPORT GIVEN TO MICHAELA AT [facility]. PER MICHAELA "PLEASE LEAVE PT. IV ACCESS". PT. SON CALLED TO BE NOTIFIED OF PT. TRANSFER, HE DID NOT ANSWER THE PHONE, LEFT A MESSAGE, AWAITING CALL BACK. GAVE REPORT TO EMT'S, DISCHARGE PAPERWORK GIVEN TO EMT'S. PT. LEFT THE FLOOR VIA GURNEY IN STABLE CONDITION ACCOMPANIED BY EMT'S AT 2127.
--- NOTE | 2018-10-26 21:35 | NUR ---
MS/RN NOTES RECEIVED CALL BACK FROM PT. RAMONA RAMIREZ AND UPDATED HIM THAT PT. WAS TRANSFERRED TO [facility] FOR CONTINUITY OF CARE.
--- NOTE | 2018-10-26 21:37 | NUR ---
MS/RN NOTES EPIC SANDER MACHINE DR. BROWN NOTIFIED THAT PT. WAS TRANSFERRED TO [facility] DUE TO INSURANCE. MD DAVISON.
== END 2018-10-26 21:25 | disposition short-term general hospital (02) | DRG 557 ==
LOC: ER 14:00 → TELE 22:04 → MED 10-26 09:22
PROVIDERS: ATTEND Student in an Organized Health Care Education/Training Program
DX: M62.82 Rhabdomyolysis (principal); I21.A1 Myocardial infarction type 2; G92 Toxic encephalopathy; N39.0 Urinary tract infection, site not specified; N17.9 Acute kidney failure, unspecified; R55 Syncope and collapse; E78.5 Hyperlipidemia, unspecified; F03.90 Unspecified dementia, unspecified severity, without behavioral disturbance, psychotic disturbance, mood disturbance, and anxiety; I10 Essential (primary) hypertension; M79.7 Fibromyalgia; Z96.643 Presence of artificial hip joint, bilateral; Z98.82 Breast implant status; Z88.2 Allergy status to sulfonamides; B96.20 Unspecified Escherichia coli [E. coli] as the cause of diseases classified elsewhere; W19.XXXA Unspecified fall, initial encounter; Y93.9 Activity, unspecified; Y92.009 Unspecified place in unspecified non-institutional (private) residence as the place of occurrence of the external cause; R32 Unspecified urinary incontinence
CPT/HCPCS: 36415; 70450-TC; 70486-TC; 71045-TC; 72125-TC; 73521; 80048-TC; 80061-TC; 80076-TC; 80305; 81000-TC; 82550-TC; 82553-TC; 83605-TC; 83735-TC; 83880; 84100-TC; 84443-TC; 84484-TC; 85025-TC; 85730-TC; 87040-TC; 87081-TC; 87086-TC; 87186-TC; 93307-TC; G0378; G0480; J0696; J1650; J7030; J7060

== ENCOUNTER 2021-08-07 09:41 | Emergency (ER) | payer OTHER ==
[~2021-08-07] VITALS: Ht 165.1 cm; Wt 88.9 kg
[~2021-08-07 09:41] MED LIST changes: -CEPH-570 PO; -CLON0.1T PO; -HYDR-3972 PO; +HYDR-4076 PO
--- NOTE | 2021-08-07 09:50 | NUR ---
TO ER BED 3, [id number] HOME, FOUND IN FLOOR. UNABLE TO GET UP. [id number] BULK MAIL TECHNICIAN. PT UNABLE TO RECALL WHY IS WAS ON THE FLOOR. NO OBVIOUS TRAUMA NOTED. DENIES PAIN. AAOX3, BREATHING EVEN AND NON LABORED, CONNECTED TO MONITOR AND CHANGED INTO A GOWN AT BEDSIDE
--- NOTE | 2021-08-07 10:05 | NUR ---
COVID ANTIGEN SWAB DONE AND SENT TO LAB
--- NOTE | 2021-08-07 10:10 | NUR ---
URINE COLLECTED AND SENT TO LAB
--- NOTE | 2021-08-07 10:16 | NUR ---
MOVE SHEET SUBMITTED.
[2021-08-07 10:18] LABS: BASOPHILS # (AUTO) 0.1 K/uL (0.0-0.2); BASOPHILS % (AUTO) 0.7 % (0.0-2.0); EOSINOPHILS % (AUTO) 7.2 % (0.0-6.0); HEMATOCRIT 40 % (33-45); HEMOGLOBIN 12.6 g/dL (11.5-14.8); LYMPHOCYTES # (AUTO) 2.1 K/uL (0.8-4.8); LYMPHOCYTES % (AUTO) 25.2 % (20.0-44.0); MEAN CORPUSCULAR HGB CONC 31 g/dl (31.0-36.0); MEAN CORPUSCULAR VOLUME 94 fL (82-100); MONOCYTES # (AUTO) 0.7 K/uL (0.1-1.30); MONOCYTES % (AUTO) 7.8 % (2.0-12.0); NEUTROPHILS % (AUTO) 59.1 % (43.0-81.0); PLATELET COUNT (AUTO) 308 K/uL (150-450); RED BLOOD CELL COUNT(AUTO) 4.27 MIL/uL (4.0-5.2); WHITE BLOOD COUNT (AUTO) 8.4 K/uL (4.3-11.0)
[2021-08-07 10:24] LABS: CALCIUM, SERUM 8.7 mg/dL (8.5-10.1); CARBON DIOXIDE 26 mmol/L (21-32); CHLORIDE 105 mmol/L (98-107); GLUCOSE 100 mg/dL (74-106); POTASSIUM 3.9 mmol/L (3.5-5.1); SODIUM SERUM 141 mmol/L (136-145); UREA NITROGEN, BLOOD 19 mg/dL (7-18)
[2021-08-07 10:30] LABS: SERUM AMMONIA 3 umol/L (11-32)
[2021-08-07 10:38] LABS: ALANINE AMINOTRANSFERASE 20 U/L (12-78); ALBUMIN 3.5 g/dL (3.4-5.0); ALKALINE PHOSPHATASE 121 U/L (46-116); ASPARTATE AMINOTRANSFERASE 20 U/L (15-37); BILIRUBIN,DIRECT 0.1 mg/dL (0.0-0.2); BILIRUBIN,TOTAL 0.2 mg/dL (0.2-1.0); TOTAL PROTEIN, SERUM 7.4 g/dL (6.4-8.2)
[2021-08-07 10:40] LABS: ACETAMINOPHEN < 2 ug/ml (10-30); ALCOHOL, BLOOD < 3 mg/dL (0-0)
[2021-08-07 10:41] LABS: MAGNESIUM 2.1 mg/dL (1.8-2.4)
--- NOTE | 2021-08-07 10:42 | NUR ---
BACK FROM CT
[2021-08-07 11:10] LABS: BILIRUBIN,URINE Negative (NEGATIVE); COLOR,URINE YELLOW (YELLOW); LEUKOCYTE ESTERASE ,URINE Small (NEGATIVE); NITRITE, URINE Negative (NEGATIVE); PROTEIN,URINE Negative (NEGATIVE); UGLUCOSE Negative (NEGATIVE); UROBILINOGEN,URINE 0.2 EU/dL (0.2)
[2021-08-07 11:14] LABS: BACTERIA,URINE 1+ /HPF (None Seen); SQUAMOUS EPITHELIAL CELL,UR Few /HPF (None Seen)
--- NOTE | 2021-08-07 11:28 | NUR ---
CARY ART SPEAKING WITH DR. CORDOVA.
[2021-08-07 11:31] LABS: THYROID STIMULATING HORMONE 3.414 uIU/mL (0.358-3.74)
[2021-08-07] MEDS ORDERED: CEFTRIAXONE 1GM BAG (ER ONLY) 50 ML IV ONE (12:28)
[2021-08-07] MEDS ORDERED: CEFTRIAXONE 1GM BAG (ER ONLY) 1 GM/50 ML PIGGYBACK IV ONE (12:30)
--- NOTE | 2021-08-07 12:51 | NUR ---
RAMONA RAMIREZ CONTACT NUMBER
--- NOTE | 2021-08-07 13:58 | NUR ---
[facility] CM CALLED PT ACCPTED TO [facility] UNDER DR. CORDOVA CALL [phone] WILL ARRANGE TRANSPORT AND CALL US BACK.
--- NOTE | 2021-08-07 14:08 | NUR ---
received a call from [facility] from [facility] for vegetable picker 5-530pm EMR.
--- NOTE | 2021-08-07 14:09 | NUR ---
CLINICALS FAXED TO [facility] [phone]
[2021-08-07] MEDS ORDERED: hydrALAZINE HCL IV 20 MG VIAL IV ONE (14:30)
[2021-08-07] MEDS ORDERED: hydrALAZINE HCL IV 20 MG VIAL ONE (14:42)
--- NOTE | 2021-08-07 15:02 | NUR ---
REPORT GIVEN TO TROY SETHI FOR JERO
--- NOTE | 2021-08-07 17:20 | NUR ---
PICKED UP BY AMBULANCE IN STABLE CONDITION
[2021-08-07 17:46] VITALS: BP 140/59
== END 2021-08-07 17:47 ==
LOC: ER 09:42
DX: R62.7 Adult failure to thrive (principal); Z68.32 Body mass index [BMI] 32.0-32.9, adult; Z20.822 Contact with and (suspected) exposure to COVID-19; Z96.643 Presence of artificial hip joint, bilateral; M79.7 Fibromyalgia; I10 Essential (primary) hypertension; Z88.2 Allergy status to sulfonamides; N39.0 Urinary tract infection, site not specified
CPT/HCPCS: 36415; 70450; 71045; 72125; 80048; 80076; 80143; 80307; 80320; 81001; 82140; 82550; 83735; 84443; 84484; 85025; 85730; 87086; 87426; 93005; 96365; 96375; 99291; C9803; J0360; J0696; G0480

== ENCOUNTER 2021-09-22 19:37 | Emergency (ER) | payer OTHER ==
[~2021-09-22] VITALS: Ht 165.1 cm; Wt 83.0 kg
--- NOTE | 2021-09-22 19:50 | NUR ---
PATIENT BIBRA 898 FROM HOME FOR C/O RIGHT SHOULDER PAIN S/P FALL FROM BED, DENIED HITTING THE HEAD. PATIENT IS A/O, RR EVEN AND UNLABORED, NO SOB NOTED. PATIENT CONNECTED TO SOLUTIONS MANAGER AND POX.
--- NOTE | 2021-09-22 19:55 | NUR ---
ENGINEERING WRITER AT PT'S BEDSIDE
[2021-09-22] MEDS ORDERED: ACETAMINOPHEN 325 MG TABLET PO ONE (20:30)
[2021-09-22] MEDS ORDERED: ACETAMINOPHEN 325 MG TABLET ONE (21:22)
--- NOTE | 2021-09-22 21:25 | NUR ---
SON CALLED NO ANSWER
--- NOTE | 2021-09-22 21:55 | NUR ---
[facility] RES COUNSELOR ETA 75-90MIN
--- NOTE | 2021-09-22 22:04 | NUR ---
[facility] RETURNED CALL, WILL PICK PT UP ETA 35 MIN.
--- NOTE | 2021-09-22 22:27 | NUR ---
[facility] TRANSPORT CALLED TO CANCEL PICK
[2021-09-22 22:50] VITALS: BP 146/78
--- NOTE | 2021-09-22 22:50 | NUR ---
Patient discharged to home in stable condition. Written and verbal after care instructions given. Patient/FAMILY verbalizes understanding of instruction.
== END 2021-09-22 22:57 | disposition home or self-care (01) ==
LOC: ER 19:39
DX: M25.511 Pain in right shoulder (principal); I10 Essential (primary) hypertension; F03.90 Unspecified dementia, unspecified severity, without behavioral disturbance, psychotic disturbance, mood disturbance, and anxiety; M79.7 Fibromyalgia; Z98.890 Other specified postprocedural states; Z88.2 Allergy status to sulfonamides; Z60.2 Problems related to living alone; Z79.899 Other long term (current) drug therapy; W22.8XXA Striking against or struck by other objects, initial encounter; Y93.89 Activity, other specified; Y92.89 Other specified places as the place of occurrence of the external cause; Y99.8 Other external cause status
CPT/HCPCS: 73030-TC

== ENCOUNTER 2021-10-17 06:35 | Emergency (ER) | payer OTHER ==
[~2021-10-17] VITALS: Ht 160 cm; Wt 81.6 kg
--- NOTE | 2021-10-17 06:44 | NUR ---
PT CAME IN FROM HOME GLF IN THE BATHROOM HIT FACE WITH THE DOOR. PT A/O X 3 DENIES ANY PAIN, N/V AT THIS TIME.
--- NOTE | 2021-10-17 06:47 | NUR ---
PT OUT TO CT.
--- NOTE | 2021-10-17 07:31 | NUR ---
PT V/S STABLE REPORT GIVEN TO LIZ SETHI FOR JERO
[2021-10-17] MEDS ORDERED: ACETAMINOPHEN ES 500 MG TABLET PO ONE ×2 (09:00→10:30)
--- NOTE | 2021-10-17 09:34 | NUR ---
PULP GRINDER AND BLENDER AT BEDSIDE
[2021-10-17] MEDS ORDERED: ACETAMINOPHEN ES 500 MG TABLET ONE (09:36)
[2021-10-17 09:42] LABS: CARBON DIOXIDE 21 mmol/L (21-32); CHLORIDE 105 mmol/L (98-107); CREATININE 1.6 mg/dL (0.6-1.3); GLUCOSE 121 mg/dL (74-106); POTASSIUM 3.6 mmol/L (3.5-5.1); SODIUM SERUM 138 mmol/L (136-145); UREA NITROGEN, BLOOD 20 mg/dL (7-18)
[2021-10-17 09:46] LABS: SERUM AMMONIA < 10 umol/L (11-32)
[2021-10-17 09:48] LABS: ALANINE AMINOTRANSFERASE 22 U/L (12-78); ALBUMIN 3.1 g/dL (3.4-5.0); ALCOHOL, BLOOD < 3 mg/dL (0-0); ALKALINE PHOSPHATASE 108 U/L (46-116); ASPARTATE AMINOTRANSFERASE 21 U/L (15-37); BASOPHILS # (AUTO) 0.1 K/uL (0.0-0.2); BASOPHILS % (AUTO) 0.8 % (0.0-2.0); BILIRUBIN,DIRECT 0.1 mg/dL (0.0-0.2); BILIRUBIN,TOTAL 0.2 mg/dL (0.2-1.0); EOSINOPHILS % (AUTO) 3.9 % (0.0-6.0); HEMATOCRIT 36 % (33-45); HEMOGLOBIN 11.4 g/dL (11.5-14.8); LYMPHOCYTES # (AUTO) 2.3 K/uL (0.8-4.8); LYMPHOCYTES % (AUTO) 24.8 % (20.0-44.0); MEAN CORPUSCULAR HGB CONC 32 g/dl (31.0-36.0); MEAN CORPUSCULAR VOLUME 89 fL (82-100); MONOCYTES # (AUTO) 0.6 K/uL (0.1-1.30); NEUTROPHILS # (AUTO) 6.1 K/uL (1.8-8.9); NEUTROPHILS % (AUTO) 64.5 % (43.0-81.0); PLATELET COUNT (AUTO) 362 K/uL (150-450); RED BLOOD CELL COUNT(AUTO) 4.07 MIL/uL (4.0-5.2); TOTAL PROTEIN, SERUM 7.3 g/dL (6.4-8.2); WHITE BLOOD COUNT (AUTO) 9.4 K/uL (4.3-11.0)
[2021-10-17 10:26] LABS: THYROID STIMULATING HORMONE 2.653 uIU/mL (0.358-3.74)
--- NOTE | 2021-10-17 10:29 | NUR ---
CALLED BROTHER SHERIE AT [phone] TO [place] STOCK CLERK PATIENT, NO ANSWER, WILL CALL AGAIN
--- NOTE | 2021-10-17 12:31 | NUR ---
RAMONA RAMIREZ [phone] WILL CALL BACK IF HE'S ABLE TO WOUND CARE TECHNICIAN PATIENT, CURRENTLY AT WORK
--- NOTE | 2021-10-17 14:30 | NUR ---
Patient discharged to home - with son Mervin in stable condition. Written and verbal after care instructions given. Patient verbalizes understanding of instruction.
[2021-10-17 15:18] VITALS: BP 120/66
== END 2021-10-17 15:20 | disposition home or self-care (01) ==
LOC: ER 06:41
DX: S00.83XA Contusion of other part of head, initial encounter (principal); Z88.2 Allergy status to sulfonamides; W19.XXXA Unspecified fall, initial encounter; Y93.89 Activity, other specified; Y92.89 Other specified places as the place of occurrence of the external cause; Y99.8 Other external cause status
CPT/HCPCS: 36415; 70450-TC; 70486-TC; 71045-TC; 72125-TC; 80048-TC; 80076-TC; 82140-TC; 84443-TC; 84484-TC; 85025-TC; G0480

== ENCOUNTER 2021-11-22 14:56 | Inpatient (IN) | payer OTHER ==
[~2021-11-22] VITALS: Ht 160 cm; Wt 81.6 kg
--- NOTE | 2021-11-22 14:56 | NUR ---
PT BIB RA FROM HOME C/O FREQUENT FALLS,CAN'T TAKE CARE OF HERSELF PER REPORT. PT IS AAOX3, NOT IN RESPIRATORY DISTRESS, V/S STABLE, KEPT RESTED AND COMFORTABLE. WILL CONTINUE TO MONITOR.
--- NOTE | 2021-11-22 14:56 | NUR ---
Note eliana in EDM - 11/22/21 at 1635 by JORDY PT BIB RA FROM HOME C/O FREQUENT FALLS,CAN'T TAKE CARE OF HERSELF PER REPORT. PT IS AAOX3, NOT IN RESPIRATORY DISTRESS, HOOKED TO LEVEL VIAL MARKER, KEPT RESTED AND COMFORTABLE. WILL CONTINUE TO MONITOR.
--- NOTE | 2021-11-22 15:29 | NUR ---
PT SEEN AND EXAMINED BY .
--- NOTE | 2021-11-22 15:39 | NUR ---
PT TAKEN TO CT
[2021-11-22] MEDS ORDERED: OMEP40CA21 PO (16:29)
[2021-11-22] MEDS ORDERED: CHOL100043 PO (16:29)
[2021-11-22] MEDS ORDERED: ASCO-340 PO (16:29)
[2021-11-22] MEDS ORDERED: MULT-447 PO (16:29)
[2021-11-22] MEDS ORDERED: ACET250T3 PO (16:29)
--- NOTE | 2021-11-22 16:35 | NUR ---
URINE SPECIMEN COLLECTED AND SENT TO LAB.
[2021-11-22 16:39] LABS: BASOPHILS # (AUTO) 0.1 K/uL (0.0-0.2); BASOPHILS % (AUTO) 0.6 % (0.0-2.0); EOSINOPHILS % (AUTO) 1.9 % (0.0-6.0); HEMATOCRIT 38 % (33-45); HEMOGLOBIN 12.2 g/dL (11.5-14.8); LYMPHOCYTES # (AUTO) 2.1 K/uL (0.8-4.8); LYMPHOCYTES % (AUTO) 20.8 % (20.0-44.0); MEAN CORPUSCULAR HGB CONC 32 g/dl (31.0-36.0); MEAN CORPUSCULAR VOLUME 87 fL (82-100); MONOCYTES # (AUTO) 0.8 K/uL (0.1-1.30); MONOCYTES % (AUTO) 8.2 % (2.0-12.0); NEUTROPHILS # (AUTO) 6.8 K/uL (1.8-8.9); NEUTROPHILS % (AUTO) 68.5 % (43.0-81.0); PLATELET COUNT (AUTO) 282 K/uL (150-450); RED BLOOD CELL COUNT(AUTO) 4.38 MIL/uL (4.0-5.2); WHITE BLOOD COUNT (AUTO) 9.9 K/uL (4.3-11.0)
[2021-11-22 17:03] LABS: ALANINE AMINOTRANSFERASE 10 U/L (12-78); ALBUMIN 3.2 g/dL (3.4-5.0); ALKALINE PHOSPHATASE 91 U/L (46-116); ASPARTATE AMINOTRANSFERASE 20 U/L (15-37); BILIRUBIN,DIRECT 0.1 mg/dL (0.0-0.2); BILIRUBIN,TOTAL 0.5 mg/dL (0.2-1.0); CALCIUM, SERUM 9.8 mg/dL (8.5-10.1); CARBON DIOXIDE 24 mmol/L (21-32); CHLORIDE 106 mmol/L (98-107); CREATININE 1.4 mg/dL (0.6-1.3); GLUCOSE 117 mg/dL (74-106); LIPASE 109 U/L (73-393); POTASSIUM 3.2 mmol/L (3.5-5.1); SODIUM SERUM 139 mmol/L (136-145); TOTAL PROTEIN, SERUM 7.2 g/dL (6.4-8.2); UREA NITROGEN, BLOOD 23 mg/dL (7-18)
[2021-11-22 17:25] LABS: BILIRUBIN,URINE SMALL (NEGATIVE); COLOR,URINE YELLOW (YELLOW); LEUKOCYTE ESTERASE ,URINE LARGE (NEGATIVE); NITRITE, URINE NEGATIVE (NEGATIVE); PROTEIN,URINE 30 mg/dl (NEGATIVE); UGLUCOSE NEGATIVE (NEGATIVE)
[2021-11-22 17:37] LABS: BACTERIA,URINE 4+ /HPF (None Seen); RBC,URINE 0-2 /HPF (0-2); SQUAMOUS EPITHELIAL CELL,UR 0-2 /HPF (None Seen); WBC,URINE 51-80 /HPF (0-3)
[2021-11-22] MEDS ORDERED: CEFTRIAXONE 1 G in IV D5W 50 ML IV ONE (21:00)
[2021-11-22] MEDS ORDERED: CEFTRIAXONE 1GM BAG (ER ONLY) 50 ML IV ONE (21:16)
--- NOTE | 2021-11-22 21:16 | NUR ---
DR HALE FROM [facility] ON THE PHONE WITH DR WILKES
--- NOTE | 2021-11-22 21:23 | NUR ---
EMT @ BEDSIDE FOR EKG
--- NOTE | 2021-11-22 21:23 | NUR ---
AUTO SERVICER NOTIFIED TO DRAW BLOOD CULTURES
[2021-11-22] MEDS ORDERED: IV NS 0.9% 1,000 ML BAG IV ONE (21:30)
--- NOTE | 2021-11-22 21:31 | NUR ---
GIFTED PROGRAM TEACHER @ BEDSIDE DRAWING CULTURES
--- NOTE | 2021-11-22 22:00 | NUR ---
FAXED FACE SHEET AND CLINICALS TO [facility]
--- NOTE | 2021-11-22 22:35 | NUR ---
[facility] [id number] [facility]ED PT'S STAY
--- NOTE | 2021-11-22 22:55 | NUR ---
PATIENT PULLED OUT IV LINE.
[2021-11-23] MEDS ORDERED: POTASSIUM CHLORIDE 20 MEQ TAB.PRT.SR PO ONE ×2 (00:30→01:15)
[2021-11-23] MEDS ORDERED: MAGNESIUM HYDROXIDE 30 ML UDC PO PRN (00:30)
[2021-11-23] MEDS ORDERED: HYDROCODONE/APAP 5/325MG TABLET PO PRN (00:30)
[2021-11-23] MEDS ORDERED: ONDANSETRON HCL/PF 4 MG/2 ML VIAL IVP PRN (00:30)
[2021-11-23] MEDS ORDERED: Z GUARD REMEDY 4 OZ OINT TP PRN (00:30)
[2021-11-23] MEDS ORDERED: MAG HYDROX/AL HYDROX/SIMETH 30 ML UDC PO PRN (00:30)
[2021-11-23] MEDS ORDERED: ACETAMINOPHEN 325 MG TABLET PO PRN (00:30)
[2021-11-23] MEDS ORDERED: ENOXAPARIN SODIUM 40 MG/0.4 ML DISP.SYRIN SQ ONE (01:15)
[2021-11-23] MEDS: ENOXAPARIN SODIUM 40 MG/0.4 ML DISP.SYRIN SQ SCH ×2 (01:22→20:32)
[2021-11-23] MEDS: IV NS 0.9% 1,000 ML IV PRN ×2 (04:29→20:32)
--- NOTE | 2021-11-23 04:45 | NUR ---
bed assignment: 308-1 after shift change
--- NOTE | 2021-11-23 07:28 | NUR ---
REPORT GIVEN TO NAVDEEP ROMAN FOR JERO
[2021-11-23] MEDS ORDERED: PANTOPRAZOLE 40 MG TABLET.DR PO ONE (08:17)
[2021-11-23] MEDS: PANTOPRAZOLE 40 MG TABLET.DR PO SCH (08:20)
--- NOTE | 2021-11-23 08:40 | NUR ---
Patient arrived via gurney at 0840am, from ER. Patient AO X 2-3, able to make needs known, can follow simple commands, no apparent distress noted, breathing even and unlabored. Admitting hospitalist made aware of the patient's arrival. Patient admitting diagnosis UTI. Patient's vital signs within normal limits, no complained of facial numbness or weakness, no extremity numbness or weakness, no dizziness, no palpitations, no chest pain at this time. Skin intact, warm to touch, no pallor or cyanosis noted. Patient was noted to have old surgical scar on bilateral hips and redness and scratches on her sacral area. Patient oriented with use of call lights, use of bed control, use of telephone and tv control, also introduces [employer] and RN assigned for today, verbalized understanding and gratitude. All belongings written in the inventory list. All needs attended, kept clean and dry, call light left within reach, safety precautions in place, brakes locked, side rails up X 2, will monitor closely for any changes.
[2021-11-23 09:00] VITALS: BP 154/91
[2021-11-23 12:00] VITALS: BP 121/71
[2021-11-23 16:00] VITALS: BP 170/74
[2021-11-23] MEDS ORDERED: hydrALAZINE HCL 10 MG TABLET PO ONE (16:00)
[2021-11-23] MEDS ORDERED: hydrALAZINE HCL 25 MG TABLET PO PRN (17:00)
[2021-11-23 18:05] VITALS: BP 159/78
--- NOTE | 2021-11-23 18:24 | NUR ---
RN CLOSING NOTES Patient lying in bed, no shortness of breath, respirations even and unlabored, no apparent distress noted, no dizziness, no palpitations, no chest pain during shift. All due medications given per MD order, tolerating well. Aspiration precautions observed at all times, kept head of bed elevated, all needs anticipated, kept clean and dry, safety precautions in place, frequent visual checks rendered, side rails up X 2, brakes locked, call light left within reach, will endorse to next shift for continuity of care.
--- NOTE | 2021-11-23 19:30 | NUR ---
RN OPENING NOTE PATIENT IN BED, SITTING UP. PATIENT IS A/O X 2 AT THIS TIME. CURRENTLY TOLERATING ROOM AIR. PATIENT IS ON TELE MONITOR SR 72 BPM. PATIENT HAS A LFA 18 G WITH NS @75 ML/HR, INFUSING WELL. PATIENT DOES NOT REPORT ANY PAIN AT OR DISCOMFORT. SAFETY MEASURES IN PLACE: BED LOCKED AND IN LOWEST POSITION, CALL LIGHT WITHIN REACH, SIDE RAILS UP. WILL MONITOR PATIENT CLOSELY.
[2021-11-23 20:00] VITALS: BP 135/72
[2021-11-23] MEDS: CEFTRIAXONE 1 G in IV D5W 50 ML IV SCH (20:27)
[2021-11-24] VITALS (7 sets, daily range): BP systolic 135–165; BP diastolic 69–93
--- NOTE | 2021-11-24 06:46 | NUR ---
RN CLOSING NOTE PATIENT IN BED, EYES CLOSED. EASILY AWAKENED. PATIENT IS A/O X 2, WITH PERIODS OF CONFUSION. CURRENTLY TOLERATING ROOM AIR. PATIENT IS ON TELE MONITOR SR 70 BPM. PATIENT HAS A LFA 18 G WITH NS @75 ML/HR, INFUSING WELL. PATIENT DOES NOT REPORT ANY PAIN AT OR DISCOMFORT. PATIENT NOT IN ANY APPARENT DISTRESS. SAFETY MEASURES IN PLACE: BED LOCKED AND IN LOWEST POSITION, CALL LIGHT WITHIN REACH, SIDE RAILS UP. ALL NEEDS MET AND ATTENDED. ALL ORDERS CARRIED OUT. WILL ENDORSE TO DAY SHIFT NURSE FOR JERO
[2021-11-24] MEDS ORDERED: OMEPRAZOLE 20 MG CAPSULE.DR PO SCH (07:30)
[2021-11-24 07:56] LABS: BASOPHILS # (AUTO) 0.1 K/uL (0.0-0.2); BASOPHILS % (AUTO) 0.9 % (0.0-2.0); HEMATOCRIT 36 % (33-45); HEMOGLOBIN 11.5 g/dL (11.5-14.8); LYMPHOCYTES # (AUTO) 2.1 K/uL (0.8-4.8); LYMPHOCYTES % (AUTO) 34.2 % (20.0-44.0); MEAN CORPUSCULAR HGB CONC 32 g/dl (31.0-36.0); MEAN CORPUSCULAR VOLUME 87 fL (82-100); MONOCYTES # (AUTO) 0.5 K/uL (0.1-1.30); MONOCYTES % (AUTO) 8.7 % (2.0-12.0); NEUTROPHILS # (AUTO) 3.2 K/uL (1.8-8.9); NEUTROPHILS % (AUTO) 52.2 % (43.0-81.0); PLATELET COUNT (AUTO) 260 K/uL (150-450); WHITE BLOOD COUNT (AUTO) 6.2 K/uL (4.3-11.0)
--- NOTE | 2021-11-24 08:00 | NUR ---
CORONER NOTES Recieved in bed Alert and oriented to name and place. Pt. is able to follow simple commandos. Assisted with AM care and breakfast.
[2021-11-24 08:04] LABS: CALCIUM, SERUM 9.2 mg/dL (8.5-10.1); CREATININE 1.1 mg/dL (0.6-1.3); MAGNESIUM 2.3 mg/dL (1.8-2.4); PHOSPHORUS 3.4 mg/dL (2.5-4.9); POTASSIUM 3.3 mmol/L (3.5-5.1)
[2021-11-24] MEDS ORDERED: POTASSIUM CHLORIDE 20 MEQ TAB.PRT.SR PO ONE (09:00)
[2021-11-24] MEDS: acetaZOLAMIDE 250 MG TABLET PO SCH (09:03)
[2021-11-24] MEDS: CHOLECALCIFEROL 1,000 UNIT TABLET (VIT D3) PO SCH (09:03)
[2021-11-24] MEDS: ASCORBIC ACID 500 MG TABLET PO SCH (09:04)
[2021-11-24] MEDS: MULTIVIT W/MINERALS 1 TAB TABLET PO SCH (09:05)
[2021-11-24] MEDS: LOSARTAN POTASSIUM 50 MG TABLET PO SCH (09:05)
[2021-11-24] MEDS: PANTOPRAZOLE 40 MG TABLET.DR PO SCH (11:26)
--- NOTE | 2021-11-24 18:30 | NUR ---
SLITTING MACHINE FEEDER NOTES PT IN BED, AWAKE, ALERT AND VERBALLY RESPONSIVE, WITH PERIODS OF CONFUSION, DENIES PAIN, NOT IN DISTRESS. CALL LIGHT WITHIN REACH, IV FLUIDS INFUSING WELL, ASSISTED WITH MEALS, PM CARE PROVIDED, ALL NEEDS ATTENDED.
[2021-11-24] MEDS: IV NS 0.9% 1,000 ML IV PRN (19:02)
--- NOTE | 2021-11-24 19:45 | NUR ---
LEGAL ARBITRATOR NOTES RECEIVED ON BED A/O X 1-2,WITH EPISODE OF CONFUSION,WITH LEFT FOREARM ASLINE LOCK,NS AT 75ML/HR RATE INFUSING WELL VIA IV PUMP,SITE PATENT.FALL PRECAUTION OBSERVED,BED ALARM,BED ON LOWEST POSITION AND LOCKED,CALL LIGHT IN REACH,NEEDS ANTICIPATED.
[2021-11-24] MEDS: CEFTRIAXONE 1 G in IV D5W 50 ML IV SCH (20:26)
[2021-11-24] MEDS: ENOXAPARIN SODIUM 40 MG/0.4 ML DISP.SYRIN SQ SCH (20:28)
[2021-11-25 00:04] VITALS: BP 139/80
[2021-11-25 04:00] VITALS: BP 157/83
--- NOTE | 2021-11-25 06:00 | NUR ---
MS RN NOTES IV SITE LEAKING.ATTEMPTED TO INSERT NEW SALINE LOCK ON LEFT ARM,UNSUCCESSFUL.WILL RETRY LATER.
--- NOTE | 2021-11-25 06:33 | NUR ---
MS RN NOTES SLEPT WELL AT NIGHT,NO COMPLAINTS OF DISCOMFORTS,CALL LIGHT IN REACH,NEEDS ATTENDED.
[2021-11-25 06:44] LABS: BASOPHILS # (AUTO) 0.1 K/uL (0.0-0.2); BASOPHILS % (AUTO) 1.3 % (0.0-2.0); EOSINOPHILS % (AUTO) 4.5 % (0.0-6.0); HEMATOCRIT 39 % (33-45); HEMOGLOBIN 12.1 g/dL (11.5-14.8); LYMPHOCYTES % (AUTO) 44.4 % (20.0-44.0); MEAN CORPUSCULAR HGB CONC 31 g/dl (31.0-36.0); MEAN CORPUSCULAR VOLUME 88 fL (82-100); MONOCYTES # (AUTO) 0.6 K/uL (0.1-1.30); MONOCYTES % (AUTO) 9.6 % (2.0-12.0); NEUTROPHILS # (AUTO) 2.7 K/uL (1.8-8.9); NEUTROPHILS % (AUTO) 40.2 % (43.0-81.0); PLATELET COUNT (AUTO) 266 K/uL (150-450); RED BLOOD CELL COUNT(AUTO) 4.44 MIL/uL (4.0-5.2); WHITE BLOOD COUNT (AUTO) 6.7 K/uL (4.3-11.0)
[2021-11-25 07:29] LABS: CALCIUM, SERUM 8.9 mg/dL (8.5-10.1); MAGNESIUM 2.3 mg/dL (1.8-2.4); PHOSPHORUS 3.1 mg/dL (2.5-4.9); POTASSIUM 3.3 mmol/L (3.5-5.1)
[2021-11-25 08:00] VITALS: BP 155/90
[2021-11-25] MEDS: LOSARTAN POTASSIUM 50 MG TABLET PO SCH (08:43)
[2021-11-25] MEDS: acetaZOLAMIDE 250 MG TABLET PO SCH (08:43)
[2021-11-25] MEDS: ASCORBIC ACID 500 MG TABLET PO SCH (08:43)
[2021-11-25] MEDS: MULTIVIT W/MINERALS 1 TAB TABLET PO SCH (08:43)
[2021-11-25] MEDS: CHOLECALCIFEROL 1,000 UNIT TABLET (VIT D3) PO SCH (08:43)
[2021-11-25] MEDS: PANTOPRAZOLE 40 MG TABLET.DR PO SCH (08:46)
[2021-11-25] MEDS ORDERED: CEFT1FRO2 IV (09:28)
[2021-11-25] MEDS ORDERED: POTASSIUM CHLORIDE 20 MEQ TAB.PRT.SR PO SCH (09:30)
--- NOTE | 2021-11-25 10:15 | NUR ---
RN Nursing: Received pt. awake in bed, breathing is even and unlabored. Pt. ate breakfast, compliant on meds. Morning care rendered. P. with discharge and without distress. BP: Sitting 133/71, AL 67 BP: lyin/71, AL 70
--- NOTE | 2021-11-25 13:00 | NUR ---
Pt. with an order to discharge pt. to [facility], pt. without distress and on stable condition. Discharge papers ready and belongings ready.
[2021-11-25 16:11] VITALS: BP 157/94
--- NOTE | 2021-11-25 16:43 | NUR ---
Repot given to Eitan SETHI over the facility.
--- NOTE | 2021-11-25 19:30 | NUR ---
MS RN NOTES RESTING COMFORTABLY ON BED,DENIES PAIN,VITAL SIGNS WITH IN NORMAL LIMITS,AWAITING TO BE PICK BY AMBULANCE FOR TRANSPORT DISCHARGE TO [facility].NO DISTRESS.
[2021-11-25 20:00] VITALS: BP 131/74
[2021-11-25] MEDS: CEFTRIAXONE 1 G in IV D5W 50 ML IV SCH (21:00)
[2021-11-25] MEDS: ENOXAPARIN SODIUM 40 MG/0.4 ML DISP.SYRIN SQ SCH (21:00)
--- NOTE | 2021-11-25 21:00 | NUR ---
MS RN NOTES [facility] CAME TO SUPPORT ANALYST PATIENT,REPORT GIVEN, APPARENTLY ONE OF THE PARAMEDICS CHECKED BLOOD PRESSURE AND IT WAS 156/111,PATIENT WAS RESTLESS AT THAT TIME AND PARAMEDICS EVEN RAISED THE FOOT PART OF THE PATIENT.ADVISED THE PARAMEDICS TO DONT RAISE THE FOOT PART BECAUSE IT WILL MAKE THE BLOOD PRESSURE HIGH. SO IT WAS RECHECK AND IT WAS 151/74 SEEN BY ROXANA RAMIREZ AND RECORDED.PARAMEDICS THEN CALLED THE FACILITY [facility] AND SPOKE TO THE PASTRY SUPERVISOR NAME VERNON,AND ACCORDING TO THEIR CONVERSATION VERNON WOKEO TAKE THE PATIENT BECAUSE OF HIGH BLOOD PRESSURE.NURSE ASSIGNED THEN RECHECK AGAIN AND IT WAS 158/88,STILL THEY WONT TAKE PATIENT,AND THEY STEP ON INSIDE THE ELEVATOR AND WALK AWAY.
--- NOTE | 2021-11-25 22:30 | NUR ---
MS RN NOTES CALLED BACK [facility] AND SPOKED TO EDYTA ONE OF THE NURSE ON DUTY,SHE SAID THAT VERNON NURSE SPARE FIXER WAS NOTE AVAILABLE BECAUSE SHE WAS WITH ANOTHER PATIENT,INSTEAD TARAH TOOK THE INFORMATION THAT BLOOD PRESSURE DOWN TO 154/77,THAT PATIENT HAS HISTORY OF HIGH BLOOD PRESSURE,THAT PATIENT HAS PRN MEDS FOR SBP 160 AND ABOVE.PER CHARGE NURSE ITS TOO LATE TO CALL AGAIN THE PARAMEDICS BECAUSE ITS ALREADY 2300,WILLCALL AGAIN IN THE MORNING FOR RECORDER OF DEEDS.
--- NOTE | 2021-11-26 06:49 | NUR ---
MS RN NOTES SLEEP WELL AT NIGHT,UNABLE TO TRANSFER TO SNF DUE INCREASED BLOOD PRESSURE.POSSIBLE TRANSFER TODAY IF BLOOD PRESSURE WITH IN NORMAL LIMITS.IN NO ACUTE DISTRESS.
--- NOTE | 2021-11-26 07:24 | NUR ---
RN OPENING NOTE- PATIENT IN BED SLEEPING THOUGH EASILY AWAKENED. PATIENT IS A/O X 2 AT THIS TIME. CURRENTLY TOLERATING ROOM AIR. PATIENT IS ON TELE MONITOR SR 69 BPM. PATIENT DENIES PAIN OR DISCOMFORT. SAFETY MEASURES IN PLACE: BED LOCKED AND IN LOWEST POSITION, CALL LIGHT WITHIN REACH, SIDE RAILS UP. WILL MONITOR PATIENT CLOSELY.
[2021-11-26] MEDS: PANTOPRAZOLE 40 MG TABLET.DR PO SCH (08:29)
[2021-11-26 08:34] VITALS: BP 142/82
[2021-11-26 09:15] VITALS: BP 142/82
[2021-11-26] MEDS: acetaZOLAMIDE 250 MG TABLET PO SCH (09:15)
[2021-11-26] MEDS: MULTIVIT W/MINERALS 1 TAB TABLET PO SCH (09:15)
[2021-11-26] MEDS: LOSARTAN POTASSIUM 50 MG TABLET PO SCH (09:15)
[2021-11-26] MEDS: ASCORBIC ACID 500 MG TABLET PO SCH (09:16)
[2021-11-26] MEDS: CHOLECALCIFEROL 1,000 UNIT TABLET (VIT D3) PO SCH (09:16)
[2021-11-26 11:44] LABS: CALCIUM, SERUM 8.8 mg/dL (8.5-10.1); POTASSIUM 3.4 mmol/L (3.5-5.1)
--- NOTE | 2021-11-26 15:45 | NUR ---
RN NOTE- PT DC TO [facility] AT THIS TIME VIA AMBULANCE AND GURNEY. PT VS STABLE, ALERT ORIENTED TO PERSON PLACE. REPORT PHONED TO FACILITY. PT WRISTBAND REMOVED. FOLLOW UP CARE REVIEWED W STAFF AND UNDERSTOOD. SKIN ASSESSMENT PHOTOS ARE NOT REQUIRED THERE ARE ONLY SCARS. PHOTOS IN CHART. ESCORTED OFF UNIT.
== END 2021-11-26 15:30 | DRG 682 ==
LOC: ER 15:06 → TRANSITION 23:15 → TELE 11-23 05:12 → MED 11-25 00:08
PROVIDERS: ADMIT Nurse Practitioner Acute Care; ATTEND Nurse Practitioner Acute Care
DX: N17.0 Acute kidney failure with tubular necrosis (principal); G93.41 Metabolic encephalopathy; N39.0 Urinary tract infection, site not specified; I10 Essential (primary) hypertension; M79.7 Fibromyalgia; E87.6 Hypokalemia; Z20.822 Contact with and (suspected) exposure to COVID-19; E86.0 Dehydration; Z96.643 Presence of artificial hip joint, bilateral; Z88.2 Allergy status to sulfonamides; Z79.899 Other long term (current) drug therapy; W19.XXXA Unspecified fall, initial encounter; Y92.9 Unspecified place or not applicable; F03.90 Unspecified dementia, unspecified severity, without behavioral disturbance, psychotic disturbance, mood disturbance, and anxiety; R26.9 Unspecified abnormalities of gait and mobility; B95.5 Unspecified streptococcus as the cause of diseases classified elsewhere; R29.6 Repeated falls; E78.5 Hyperlipidemia, unspecified; I70.0 Atherosclerosis of aorta
CPT/HCPCS: 36415; 70450-TC; 71045-TC; 72125-TC; 80048-TC; 80076-TC; 81001; 83690-TC; 83735-TC; 84100-TC; 84484-TC; 85025-TC; 85730-TC; 87040-TC; 87081-TC; 87086-TC; 93307-TC; 97116-TC; 97530-TC; C9803; G0378; J0696; J1650; J2405; J7030; J7060

== ENCOUNTER 2021-12-24 12:35 | Inpatient (IN) | payer MEDICARE, OTHER ==
[~2021-12-24] VITALS: Ht 167.6 cm; Wt 71.2 kg
[~2021-12-24 12:35] MED LIST changes: +ACET250T3 PO; +ASCO-340 PO; +CEFT1FRO2 IV; +CHOL100043 PO; +MULT-447 PO; +OMEP40CA21 PO; -VENL75CA62 PO
--- NOTE | 2021-12-24 12:51 | NUR ---
TO ER BED 11. [id number] FROM HOME C/O GEN WEAKNESS AND FREQUENT FALLS. PT IS A&OX2. PT ATTACHED TO MONITOR. BREATHING IS EVEN AND UNLABORED ON ROOM AIR. WARM BLANKET PROVIDED FOR COMFORT. VILMA BLACKWOOD.
--- NOTE | 2021-12-24 13:05 | NUR ---
IV ESTABLISHED R AC 20G. LABS DRAWN AND COLLECTED. CONVERTED TO SALINE LOCK.
[2021-12-24 13:39] LABS: BASOPHILS % (AUTO) 0.5 % (0.0-2.0); EOSINOPHILS % (AUTO) 0.8 % (0.0-6.0); HEMATOCRIT 37 % (33-45); HEMOGLOBIN 11.8 g/dL (11.5-14.8); LYMPHOCYTES # (AUTO) 1.5 K/uL (0.8-4.8); LYMPHOCYTES % (AUTO) 19.6 % (20.0-44.0); MEAN CORPUSCULAR HGB CONC 32 g/dl (31.0-36.0); MEAN CORPUSCULAR VOLUME 85 fL (82-100); MONOCYTES # (AUTO) 0.8 K/uL (0.1-1.30); MONOCYTES % (AUTO) 10.2 % (2.0-12.0); NEUTROPHILS # (AUTO) 5.3 K/uL (1.8-8.9); NEUTROPHILS % (AUTO) 68.9 % (43.0-81.0); PLATELET COUNT (AUTO) 305 K/uL (150-450); RED BLOOD CELL COUNT(AUTO) 4.34 MIL/uL (4.0-5.2); WHITE BLOOD COUNT (AUTO) 7.6 K/uL (4.3-11.0)
--- NOTE | 2021-12-24 13:54 | NUR ---
PT RETURNED FROM CT VIA [facility]
[2021-12-24 14:06] LABS: CALCIUM, SERUM 8.9 mg/dL (8.5-10.1); CARBON DIOXIDE 18 mmol/L (21-32); CHLORIDE 106 mmol/L (98-107); CREATININE 0.9 mg/dL (0.6-1.3); GLUCOSE 104 mg/dL (74-106); POTASSIUM 3.6 mmol/L (3.5-5.1); SODIUM SERUM 135 mmol/L (136-145); UREA NITROGEN, BLOOD 23 mg/dL (7-18)
[2021-12-24 14:12] LABS: ALANINE AMINOTRANSFERASE 15 U/L (12-78); ALKALINE PHOSPHATASE 94 U/L (46-116); ASPARTATE AMINOTRANSFERASE 20 U/L (15-37); BILIRUBIN,DIRECT 0.1 mg/dL (0.0-0.2); BILIRUBIN,TOTAL 0.3 mg/dL (0.2-1.0); TOTAL PROTEIN, SERUM 6.9 g/dL (6.4-8.2)
[2021-12-24 14:19] LABS: THYROID STIMULATING HORMONE 4.003 uIU/mL (0.358-3.74)
--- NOTE | 2021-12-24 16:13 | NUR ---
urine collected and sent
[2021-12-24 17:26] LABS: COLOR,URINE YELLOW (YELLOW)
[2021-12-24 17:27] LABS: PH,URINE 7.5 (5.0-8.0)
[2021-12-24 17:28] LABS: BILIRUBIN,URINE NEGATIVE (NEGATIVE); PROTEIN,URINE 2+ mg/dl (NEGATIVE); UGLUCOSE NEGATIVE (NEGATIVE)
[2021-12-24 17:29] LABS: LEUKOCYTE ESTERASE ,URINE 3+ (NEGATIVE); NITRITE, URINE POSITIVE (NEGATIVE); UROBILINOGEN,URINE 0.2 EU/dL (0.2)
[2021-12-24 17:31] LABS: BACTERIA,URINE 3+ /HPF (None Seen); RBC,URINE 81-100 /HPF (0-2); WBC,URINE TOO NUMEROUS TO COUN /HPF (0-3)
[2021-12-24] MEDS ORDERED: CEFTRIAXONE 1GM BAG (ER ONLY) 1 GM/50 ML PIGGYBACK IV ONE (18:00)
[2021-12-24] MEDS ORDERED: CEFTRIAXONE 1GM BAG (ER ONLY) 50 ML IV ONE (18:20)
--- NOTE | 2021-12-24 20:29 | NUR ---
SPOKE WITH [facility] REGARDING PT ADMISSION. AWAITING AUTH OR FURTHER INSTRUCTION.
--- NOTE | 2021-12-24 21:46 | NUR ---
SPOKE WITH MILLINERY TEACHER SHELDON WITH [facility]. WILL FOLLOW UP WITH THEIR DOCTOR FOR A PANEL CALL.
--- NOTE | 2021-12-24 23:21 | NUR ---
DR. MCKINLEY [place] TALKING TO ER OVER THE PHONE
[2021-12-25] VITALS (7 sets, daily range): BP systolic 109–146; BP diastolic 54–69
[2021-12-25] MEDS ORDERED: Z GUARD REMEDY 4 OZ OINT TP PRN
[2021-12-25] MEDS ORDERED: MAG HYDROX/AL HYDROX/SIMETH 30 ML UDC PO PRN
[2021-12-25] MEDS ORDERED: ONDANSETRON HCL/PF 4 MG/2 ML VIAL IVP PRN
--- NOTE | 2021-12-25 00:10 | NUR ---
TELE RECEIVING NOTE PATIENT RECEIVED FROM ER VIA GURNEY. PATIENT IS A/OX2. NO S/S OF DISTRESS, BREATHING W/O DIFFICULTY ON RM AIR. RAC #20 SL INTACT AND PATENT. TELE MONITOR REVEALS SR 91 W/ PVCs. PATIENT STABLE; VS: 145/69. HR 94, T 98.4, 98% RM AIR. PATIENT WAS ORIENTED TO THE UNIT. CALL FALCON GIVEN TO PATIENT AND INSTRUCTED ON ITS USE. BELONGINGS LOGGED INTO BELONGINGS SHEET BY JED SCHMIDT. TELE MONITOR APPLIED TO PATIENT. SAFETY MEASURES IN PLACE: BED AT LOWEST LEVEL, RAILS UP X2, CALL FALCON WITHIN REACH. WILL CONTINUE TO MONITOR PATIENT.
--- NOTE | 2021-12-25 00:11 | NUR ---
PT TRANSPORTED TO ROOM 326 ON DISTRIBUTION CENTER ASSISTANT PER ACLS PROTOCOL WITHOUT INCIDENT. PT TRANSPORTED IN STABLE CONDITION.
[2021-12-25] MEDS: ENOXAPARIN SODIUM 40 MG/0.4 ML DISP.SYRIN SQ SCH ×2 (00:54→21:20)
[2021-12-25] MEDS: IV NS 0.9% 1,000 ML IV PRN ×2 (05:12→17:39)
--- NOTE | 2021-12-25 06:07 | NUR ---
RN NOTE PER PATIENT'S REQUEST I REACHED OUT TO PATIENT'S CONTACT (JAMES RAMOS, SON; [phone]) TO LET HIM KNOW HIS MOTHER IS ON 3W UNIT AND STATUS UPDATE. HER SON DID NOT ANSWER, SO I LEFT A MESSAGE WITH 3W CONTACT NUMBER. PATIENT STABLE; WILL CONTINUE TO MONITOR.
[2021-12-25 06:19] LABS: BASOPHILS % (AUTO) 0.6 % (0.0-2.0); EOSINOPHILS % (AUTO) 1.6 % (0.0-6.0); HEMATOCRIT 35 % (33-45); HEMOGLOBIN 11.3 g/dL (11.5-14.8); LYMPHOCYTES # (AUTO) 1.2 K/uL (0.8-4.8); LYMPHOCYTES % (AUTO) 17.5 % (20.0-44.0); MEAN CORPUSCULAR HGB CONC 32 g/dl (31.0-36.0); MEAN CORPUSCULAR VOLUME 85 fL (82-100); MONOCYTES # (AUTO) 0.7 K/uL (0.1-1.30); MONOCYTES % (AUTO) 9.7 % (2.0-12.0); NEUTROPHILS % (AUTO) 70.6 % (43.0-81.0); PLATELET COUNT (AUTO) 304 K/uL (150-450); RED BLOOD CELL COUNT(AUTO) 4.18 MIL/uL (4.0-5.2)
--- NOTE | 2021-12-25 06:30 | NUR ---
DAIRY FARM SUPERVISOR CLOSING NOTE PATIENT IS ASLEEP IN BED. A/OX2. NO S/S OF DISTRESS, BREATHING UNLABORED ON RM AIR. RAC #20 INTACT AND PATENT W/ NS 75ML/HR. TELE MONITOR REVEALS SR 91 W/ COUPLETS. SAFETY MEASURES IN PLACE: BED AT LOWEST POSITION, RAILS UP X3, CALL FALCON WITHIN REACH. WILL ENDORSE TO NEXT SHIFT FOR JERO.
[2021-12-25 06:52] LABS: CALCIUM, SERUM 8.7 mg/dL (8.5-10.1); CARBON DIOXIDE 21 mmol/L (21-32); CHLORIDE 108 mmol/L (98-107); CREATININE 0.9 mg/dL (0.6-1.3); GLUCOSE 86 mg/dL (74-106); PHOSPHORUS 3.6 mg/dL (2.5-4.9); POTASSIUM 3.7 mmol/L (3.5-5.1); SODIUM SERUM 139 mmol/L (136-145); UREA NITROGEN, BLOOD 20 mg/dL (7-18)
--- NOTE | 2021-12-25 07:34 | NUR ---
RN OPENING NOTE- PATIENT IS ASLEEP IN BED THOUGH EASILY AWAKENED. NO S/S OF DISTRESS, BREATHING NON-LABORED ON RA/ SATS 99%. RAC #20 INTACT AND PATENT W/ NS 75ML/HR. TELE MONITOR REVEALS SR AT 89. SAFETY MEASURES IN PLACE: BED AT LOWEST POSITION, RAILS UP, CALL FALCON WITHIN REACH. MONITOR / ASSIST.
[2021-12-25] MEDS: PANTOPRAZOLE 40 MG TABLET.DR PO SCH (07:44)
[2021-12-25] MEDS: ASCORBIC ACID 500 MG TABLET PO SCH (08:47)
[2021-12-25] MEDS: acetaZOLAMIDE 250 MG TABLET PO SCH (08:47)
[2021-12-25] MEDS: MULTIVIT W/MINERALS 1 TAB TABLET PO SCH (08:47)
[2021-12-25] MEDS: CHOLECALCIFEROL 1,000 UNIT TABLET (VIT D3) PO SCH (08:47)
[2021-12-25] MEDS: LOSARTAN POTASSIUM 50 MG TABLET PO SCH (08:48)
[2021-12-25] MEDS: CEFTRIAXONE 1 G in IV D5W 50 ML IV SCH (08:57)
--- NOTE | 2021-12-25 18:31 | NUR ---
RN CLOSING NOTE- PATIENT IS AWAKE, CONFUSED AND INTERACTIVE. NO S/S OF DISTRESS, BREATHING NON-LABORED ON RA/ SATS 96%. RAC #20 INTACT AND PATENT W/ NS 75ML/HR. TELE MONITOR REVEALS SR AT 78. DR MADRIGAL OFFICE NOTIFIED OF NEURO CONSULT. SAFETY MEASURES IN PLACE: BED AT LOWEST POSITION, RAILS UP, CALL FALCON WITHIN REACH. MONITOR / ASSIST.
--- NOTE | 2021-12-25 19:28 | NUR ---
TELE OPENING NOTE PATIENT AWAKE IN BED. A/OX2. NO S/S OF DISTRESS. BREATHING UNLABORED ON RM AIR. TELE MONITOR REVEALS SR 80. RAC #20 INTACT AND PATENT W/ NS 75ML/HR. SAFETY MEASURES IN PLACE: BED AT LOWEST POSITION, RAILS UP X2, CALL FALCON WITHIN REACH. WILL CONTINUE TO MONITOR PATIENT.
[2021-12-26] VITALS: BP 120/60
[2021-12-26 04:00] VITALS: BP 127/62
--- NOTE | 2021-12-26 06:47 | NUR ---
CLINICAL ADVISOR CLOSING NOTE PATIENT IS AWAKE IN BED. A/OX2. NO S/S OF DISTRESS. BREATHING W/O DIFFICULTY. TELE MONITOR REVEALS SR 71. LAC #22 NS 75ML/HR. SAFETY MEASURES IN PLACE: BED AT LOWEST POSITION, RAILS UP X3, CALL FALCON WITHIN REACH. PATIENT'S IV LINE BECAME DISLODGED DURING SHIFT. NO ISSUES OCCURRED. ENTIRE IV WAS DISLODGED W/ IV CATH INTACT. MINIMAL BLEEDING, PRESSURE DRESSING APPLIED. NEW IV WAS INSERTED: LAC #22. PATIENT MAINTAINED BEING STABLE THROUGHOUT SHIFT. WILL ENDORSE TO NEXT SHIFT FOR JERO.
[2021-12-26] MEDS: PANTOPRAZOLE 40 MG TABLET.DR PO SCH (07:05)
--- NOTE | 2021-12-26 07:50 | NUR ---
RN OPENING NOTES PATIENT AWAKE, A/O X2. NO S/S OF PAIN NOTED AT THIS TIME. PATIENT ON ROOM AIR, NO DISTRESS OR SHORTNESS OF BREATH. IV ACCESS RAC #22G, INTACT, PATENT AND FLUSHING WELL. PATIENT ON EXTERNAL ASSESSOR CURRENT READING OF S.R. AND HR OF 71. FALL AND SAFETY MEASURES IN PLACE, BED ALARM ON, BED IN LOW AND LOCK POSITION, CALL LIGHT AND TABLE WITHIN EASY REACH, SIDE RAILS UP X2. WILL CONTINUE TO MONITOR.
[2021-12-26 08:20] VITALS: BP 134/65
[2021-12-26] MEDS: MULTIVIT W/MINERALS 1 TAB TABLET PO SCH (09:09)
[2021-12-26] MEDS: ASCORBIC ACID 500 MG TABLET PO SCH (09:09)
[2021-12-26] MEDS: LOSARTAN POTASSIUM 50 MG TABLET PO SCH (09:09)
[2021-12-26] MEDS: CHOLECALCIFEROL 1,000 UNIT TABLET (VIT D3) PO SCH (09:09)
[2021-12-26] MEDS: acetaZOLAMIDE 250 MG TABLET PO SCH (09:09)
[2021-12-26] MEDS: CEFTRIAXONE 1 G in IV D5W 50 ML IV SCH (09:09)
[2021-12-26] MEDS: ACETAMINOPHEN 325 MG TABLET PO PRN (15:25)
[2021-12-26 16:13] VITALS: BP 131/58
[2021-12-26] MEDS: IV NS 0.9% 1,000 ML IV PRN (17:44)
--- NOTE | 2021-12-26 18:37 | NUR ---
RN CLOSING NOTES PATIENT AWAKE IN BED RESTING, A/O X2. NO S/S OF PAIN NOTED AT THIS TIME. PATIENT ON ROOM AIR, NO DISTRESS OR SHORTNESS OF BREATH. IV ACCESS LAC #22G, INTACT, PATENT AND FLUSHING WELL. FALL AND SAFETY MEASURES IN PLACE, BED ALARM ON, BED IN LOW AND LOCK POSITION, CALL LIGHT AND TABLE WITHIN EASY REACH, SIDE RAILS UP X2. WILL ENDORSE TO BEAUTY SCHOOL INSTRUCTOR.
--- NOTE | 2021-12-26 19:40 | NUR ---
MS/RN OPENING NOTE RECEIVED PATIENT RESTING IN BED. AWAKE, ALERT AND ORIENTED X 1-2. ABLE TO MAKE NEEDS KNOWN. DENIES PAIN AT THIS TIME. CONTINUES ON ROOM AIR WITH NO S/SX OF RESPIRATORY DISTRESS NOTED. IV ACCESS TO LEFT AC #22G INTACT AND PATENT. CONTINUES ON IVF NS @ 75ML/HR. CONTINUES ON IV ABX. CONTINUES ON CARDIAC DIET WITH NO S/SX OF ASPIRATION NOTED. CALL LIGHT WITHIN REACH. ASPIRATION, FALL AND SAFETY PRECAUTIONS MAINTAINED. WILL CONTINUE TO MONITOR.
[2021-12-26 20:14] VITALS: BP 145/63
[2021-12-26] MEDS: ENOXAPARIN SODIUM 40 MG/0.4 ML DISP.SYRIN SQ SCH (21:00)
[2021-12-27] MEDS: IV NS 0.9% 1,000 ML IV PRN (05:57)
[2021-12-27] MEDS: PANTOPRAZOLE 40 MG TABLET.DR PO SCH (06:00)
--- NOTE | 2021-12-27 06:40 | NUR ---
MS/RN CLOSING NOTE PATIENT RESTING IN BED. AWAKE, ALERT AND ORIENTED X 1-2. ABLE TO MAKE NEEDS KNOWN. DENIES PAIN AT THIS TIME. CONTINUES ON ROOM AIR WITH NO S/SX OF RESPIRATORY DISTRESS NOTED. IV ACCESS TO LEFT AC #22G INTACT AND PATENT. CONTINUES ON IVF NS @ 75ML/HR. CONTINUES ON IV ABX. CONTINUES ON CARDIAC DIET WITH NO S/SX OF ASPIRATION NOTED. CALL LIGHT WITHIN REACH. ASPIRATION, FALL AND SAFETY PRECAUTIONS MAINTAINED. WILL ENDORSE PLAN OF CARE TO ONCOMING SHIFT.
--- NOTE | 2021-12-27 07:23 | NUR ---
MS RN OPENING NOTES RECEIVED PATIENT AWAKE IN BED IN NO ACUTE SIGNS OF DISTRESS. HOB ELEVATED. A/O X 2. ABLE TO MAKE NEEDS KNOWN, DENIES PAIN OR ANY DISCOMFORTS AT THIS TIME. ON ROOM AIR , TOLERATING WELL, BREATHING EVEN AND UNLABORED. IV ACCESS ON LEFT AC #22G INTACT AND PATENT WITH IVF OF NS @ 75ML/HR INFUSING WELL, NO S/S OF INFILTRATION AT SITE NOTED. FALL AND SAFETY PRECAUTIONS MAINTAINED: BED IN LOWEST LOCKED POSITION, SR UP X2 AND CALL LIGHT W/IN REACH. WILL CONTINUE TO MONITOR.
[2021-12-27] MEDS: CHOLECALCIFEROL 1,000 UNIT TABLET (VIT D3) PO SCH (08:20)
[2021-12-27] MEDS: ASCORBIC ACID 500 MG TABLET PO SCH (08:20)
[2021-12-27] MEDS: CEFTRIAXONE 1 G in IV D5W 50 ML IV SCH (08:20)
[2021-12-27] MEDS: MULTIVIT W/MINERALS 1 TAB TABLET PO SCH (08:20)
[2021-12-27] MEDS: LOSARTAN POTASSIUM 50 MG TABLET PO SCH (08:20)
[2021-12-27] MEDS: acetaZOLAMIDE 250 MG TABLET PO SCH (08:22)
[2021-12-27 09:00] LABS: CALCIUM, SERUM 8.2 mg/dL (8.5-10.1); CREATININE 0.8 mg/dL (0.6-1.3); POTASSIUM 2.9 mmol/L (3.5-5.1)
[2021-12-27] MEDS: MEROPENEM 1 G in IV NS 0.9% 100 ML IV SCH ×2 (09:54→21:36)
[2021-12-27] MEDS: ACETAMINOPHEN 325 MG TABLET PO PRN ×2 (09:54→21:47)
--- NOTE | 2021-12-27 10:00 | NUR ---
RN NOTES PT C/O OF ACHING PAIN ON B/L BUTTOCKS, PRN TYLENOL 650 MG PO ADMINISTERED AT 0954. WILL CONTINUE TO MONITOR.
[2021-12-27] MEDS ORDERED: MERO1VIA23 IV (11:21)
[2021-12-27] MEDS ORDERED: POTASSIUM CHLORIDE 20 MEQ TAB.PRT.SR PO SCH (12:00)
--- NOTE | 2021-12-27 12:34 | NUR ---
WOUND CARE CONSULT: PT PRESENTS WITH SACRAL DEEP TISSUE INJURY IN EVOLUTION WHICH WAS NOTED TO BE PRESENT ON ADMISSION. RECOMMENDATIONS MADE FOR SKIN PROTECTION. DISCUSSED WITH NURSING STAFF. PT IS INCONTINENT. SURGICAL CONSULT WAS CALLED TO DR KOHANZADEH. BRAVO IN AGREEMENT WITH PLAN OF CARE. Addendum: 12/27/21 at 1235 by FLY BRICEÑO WNDNU Amended: Links added.
[2021-12-27] MEDS: CLOTRIMAZOLE 1% 15 GM TUBE TP SCH (17:21)
--- NOTE | 2021-12-27 18:35 | NUR ---
MS RN CLOSING NOTES PATIENT IN BED ASLEEP AT THIS TIME, EASILY AROUSABLE. HOB ELEVATED. A/O X 2. ABLE TO MAKE NEEDS KNOWN WITH PERIODS OF CONFUSION AND FORGETFULNESS NOTED DURING THE DAY, RE-ORIENTED AND REDIRECTED PRN. ON ROOM AIR , TOLERATING WELL, BREATHING EVEN AND UNLABORED. IV ACCESS ON LEFT AC #22G INTACT AND PATENT WITH IVF OF NS @ 75ML/HR INFUSING WELL, NO S/S OF INFILTRATION AT SITE NOTED.ALL NEEDS AND CARE PROVIDED WELL. FALL AND SAFETY PRECAUTIONS MAINTAINED: BED IN LOWEST LOCKED POSITION, SR UP X2 AND CALL LIGHT W/IN REACH. WILL ENDORSE JERO AND POC TO QUALITY ANALYST/TECHNICAL WRITER NURSE.
--- NOTE | 2021-12-27 19:27 | NUR ---
MS RN OPENING NOTES: RECEIVED PATIENT AWAKE IN BED, BED IN LOW POSITION, CALL LIGHT WITHIN REACH, NO COMPLAIN OF PAIN AND DISCOMFORT AT THIS TIME, PATIENT ON ROOM AIR SATURATING WELL, WITH IV LINE AT LAC#22 WITH ONGOING NSS@75ML/HR INFUSING WELL, PATIENT ON ROOM AIR SATURATING WELL, PATIENT KEPT CLEAN AND DRY ALL NEEDS MET WILL CONTINUE TO MONITOR.
[2021-12-27 20:00] VITALS: BP 132/47
[2021-12-27] MEDS: ENOXAPARIN SODIUM 40 MG/0.4 ML DISP.SYRIN SQ SCH (21:38)
[2021-12-28] MEDS: PANTOPRAZOLE 40 MG TABLET.DR PO SCH (06:25)
--- NOTE | 2021-12-28 06:45 | NUR ---
MS RN CLOSING NOTES: PATIENT SLEEP IN BED COMFORTABLY, AROUSABLE TO VERBAL STIMULI, BED IN LOW POSITION, CALL LIGHTS WITHIN REACH, NO COMPLAIN OF PAIN AND DISCOMFORT AT THIS TIME, ON ROOM AIR SATURATING WELL, WITH IV LINE AT LAC#22 WITH ONGOING NSS@75 ML PER HOUR INFUSING WELL, PATIENT WITH 1:1 SITTER, KEPT CLEAN AND DRY ALL NEEDS MET ENDORSE TO INCOMING SHIFT.
--- NOTE | 2021-12-28 07:30 | NUR ---
MS RN OPENING NOTE PATIENT IN BED ASLEEP, RESPONSIVE TO VERBAL AND TACTILE STIMULI. A/O X3. TOLERATING ROOM AIR WELL. DENIES PAIN AT THIS TIME. HAS LEFT AC #22G WITH NS @ 75 ML/HR INFUSING WELL. SITTER AVAILABLE. SAFETY PRECAUTIONS IN PLACED: BED LOCKED AND LOW, CALL LIGHT WITHIN REACH, SIDE RAILS UP X3. WILL CONTINUE PLAN OF CARE.
[2021-12-28 08:00] VITALS: BP 162/74
[2021-12-28] MEDS: acetaZOLAMIDE 250 MG TABLET PO SCH (09:18)
[2021-12-28] MEDS: MULTIVIT W/MINERALS 1 TAB TABLET PO SCH (09:18)
[2021-12-28] MEDS: LOSARTAN POTASSIUM 50 MG TABLET PO SCH (09:18)
[2021-12-28] MEDS: CHOLECALCIFEROL 1,000 UNIT TABLET (VIT D3) PO SCH (09:18)
[2021-12-28] MEDS: ASCORBIC ACID 500 MG TABLET PO SCH (09:18)
[2021-12-28] MEDS: CLOTRIMAZOLE 1% 15 GM TUBE TP SCH ×2 (09:21→17:01)
[2021-12-28] MEDS: MEROPENEM 1 G in IV NS 0.9% 100 ML IV SCH ×2 (10:23→22:09)
[2021-12-28] MEDS: IV NS 0.9% 1,000 ML IV PRN (10:29)
[2021-12-28] MEDS: MAGNESIUM HYDROXIDE 30 ML UDC PO PRN (11:11)
[2021-12-28 14:51] LABS: CALCIUM, SERUM 8.4 mg/dL (8.5-10.1); CREATININE 0.8 mg/dL (0.6-1.3); POTASSIUM 3.7 mmol/L (3.5-5.1)
[2021-12-28 16:00] VITALS: BP 141/70
--- NOTE | 2021-12-28 18:55 | NUR ---
MS RN CLOSING NOTES PATIENT RESTING IN BED THROUGHOUT THE DAY. A/O X3. ABLE TO VERBALIZE NEEDS. NO SOB OR NOTED. HAD A SMALL BOWEL MOVEMENT IN THE AM, CONSTIPATED. ADMINISTERED MOM, NO BOWEL MOVEMENT OF THIS TIME. ADVISED TO USE BEDSIDE COMMODE INSTEAD OF GOING TO BATHROOM D/T BILATERAL LOWER EXTREMITIES WEAKNESS. ASSISTED WHILE TRANSFERRING TO BEDSIDE COMMODE. CHANGED LINEN AND GOWN. SACRAL WOUND TREATMENT RENDERED. SAFETY PRECAUTIONS IN PLACED: BED LOCKED AND LOW, CALL LIGHT WITHIN REACH, SIDE RAILS UP X3. ALL MEDS GIVEN AND NEEDS ATTENDED. KEPT DRY AND COMFORTABLE.
--- NOTE | 2021-12-28 19:32 | NUR ---
MS RN OPENING NOTES RECEIVED PATIENT AWAKE IN BED WATCHING TV. A/O X3 WITH EPISODES OF CONFUSION AND FORGETFULNESS. ABLE TO VERBALIZE NEEDS. PT STABLE ON ROOM AIR. NO SOB OR S/S OF RESPIRATORY DISTRESS. IV ACCESS LAC 22 GAUGE RUNNING NS @ 75 ML/HR. SAFETY PRECAUTIONS IN PLACE. BED IN LOWEST LOCKED POSITION, HOB ELEVATED, SIDE RAILS UP X3, AND CALL LIGHT AND TABLE WITHIN REACH. WILL CONTINUE WITH PLAN OF CARE.
[2021-12-28 19:52] VITALS: BP 153/72
[2021-12-28] MEDS: ENOXAPARIN SODIUM 40 MG/0.4 ML DISP.SYRIN SQ SCH (20:40)
--- NOTE | 2021-12-28 20:40 | NUR ---
RN NOTE PT REFUSED LOVENOX INJECTION. EXPLAINED RISKS AND BENEFITS, STILL REFUSED. WILL CONTINUE WITH PLAN OF CARE.
--- NOTE | 2021-12-28 20:42 | NUR ---
RN NOTE PT BP WAS 153/72. INFORMED DR SUH AND GIVEN ORDERS FOR PRN BP MEDICATION. ORDERS NOTED AND CARRIED OUT. WILL CONTINUE WITH PLAN OF CARE.
--- NOTE | 2021-12-28 20:43 | NUR ---
RN NOTE PT BP 153/72 AND TRENDING HIGH FOR THE PAST COUPLE DAYS. INFORMED SENIOR MANAGEMENT CONSULTANT DR SUH AND OBTAINED AND CARRIED OUT NEW ORDERS. WILL CONTINUE WITH PLAN OF CARE.
[2021-12-29] MEDS ORDERED: hydrALAZINE HCL 25 MG TABLET PO PRN (00:30)
[2021-12-29 04:32] VITALS: BP 149/67
--- NOTE | 2021-12-29 06:36 | NUR ---
MS RN CLOSING NOTES PATIENT AWAKE IN BED WATCHING TV. A/O X3 WITH EPISODES OF CONFUSION AND FORGETFULNESS. ABLE TO VERBALIZE NEEDS. PT STABLE ON ROOM AIR. NO SOB OR S/S OF RESPIRATORY DISTRESS. IV ACCESS LAC 22 GAUGE RUNNING NS @ 75 ML/HR. ALL NEEDS MET AT THIS TIME. SAFETY PRECAUTIONS IN PLACE AT ALL TIMES. BED IN LOWEST LOCKED POSITION, HOB ELEVATED, SIDE RAILS UP X3, AND CALL LIGHT AND TABLE WITHIN REACH. WILL ENDORSE TO ONCOMING NURSE FOR JERO.
[2021-12-29 07:08] LABS: CALCIUM, SERUM 9.1 mg/dL (8.5-10.1); CREATININE 0.7 mg/dL (0.6-1.3); POTASSIUM 3.6 mmol/L (3.5-5.1)
--- NOTE | 2021-12-29 07:30 | NUR ---
MS RN OPENING NOTES PATIENT RESTING IN BED WITH EYES CLOSED, EASY TO AROUSE. STABLE ON ROOM AIR. NO SOB OR NOTED. HAS LEFT AC IV ACCESS #22G WITH NS @ 75 ML/HR. SAFETY PRECAUTIONS IN PLACED: BED LOCKED AND LOW, CALL LIGHT WITHIN REACH, SIDE RAILS UP X3. WILL CONTINUE PLAN OF CARE.
[2021-12-29] MEDS: PANTOPRAZOLE 40 MG TABLET.DR PO SCH (08:29)
[2021-12-29] MEDS: CHOLECALCIFEROL 1,000 UNIT TABLET (VIT D3) PO SCH (08:44)
[2021-12-29] MEDS: ASCORBIC ACID 500 MG TABLET PO SCH (08:44)
[2021-12-29] MEDS: acetaZOLAMIDE 250 MG TABLET PO SCH (08:44)
[2021-12-29] MEDS: MULTIVIT W/MINERALS 1 TAB TABLET PO SCH (08:44)
[2021-12-29] MEDS: CLOTRIMAZOLE 1% 15 GM TUBE TP SCH ×2 (08:45→17:55)
[2021-12-29] MEDS: LOSARTAN POTASSIUM 50 MG TABLET PO SCH (08:46)
--- NOTE | 2021-12-29 09:00 | NUR ---
MS RN NOTE PATIENT IS A/O X4 OF THIS TIME WITH C/O DIFFICULTY PASSING STOOL. SHE HAS BEEN USING HER FINGER TO GET THE STOOL OUT. NOTIFIED MD WITH NEW ORDER FOR DULCOLAX 10MG SUPPOSITORY.
[2021-12-29] MEDS: IV NS 0.9% 1,000 ML IV PRN (09:02)
[2021-12-29] MEDS: MAGNESIUM HYDROXIDE 30 ML UDC PO PRN (09:22)
[2021-12-29] MEDS: MEROPENEM 1 G in IV NS 0.9% 100 ML IV SCH ×2 (10:29→22:00)
[2021-12-29] MEDS ORDERED: BISACODYL SUPP (10 MG) 10 MG/SUPP.RECT SUPP.RECT RC PRN (10:30)
[2021-12-29] MEDS: THERAHONEY GEL 1.5 OZ TUBE TP SCH (15:50)
--- NOTE | 2021-12-29 19:08 | NUR ---
MS RN CLOSING NOTES PATIENT LYING IN BED THROUGHOUT THE DAY. A/O X4, IRRITABLE. STABLE IN ROOM AIR. CONSTIPATED IN THE AM, ADMINISTERED DULCOLAX SUPPOSITORY, PASSED OUT BIG STOOL X1. TURNING POSITION ABLE. LEFT AC IV INFILTRATED. REINSERTED RIGHT AC IV LINE #22G WITH NS RUNNING @ 75 ML/HR. FOUND PATIENT PULLED OUT IV, REFUSED REINSERTION, NOTIFIED DR. GAYLE AND AWAITING ORDERS. ALL NEEDS ATTENDED. KEPT DRY AND CLEAN. SEEN BY DR. DE LA TORRE WITH NEW ORDER NOTED AND CARRIED OUT. WOUND TX RENDERED. SAFETY PRECAUTIONS IN PLACED: BED LOCKED AND LOW, CALL LIGHT WITHIN REACH, SIDE RAILS UP X3.
--- NOTE | 2021-12-29 19:45 | NUR ---
MS RN OPENING NOTES RECEIVED PATIENT LAYING AWAKE IN BED. A/O X4. PATIENT WITH REGULAR AND UNLABORED BREATHING ON ROOM AIR TOLERATED WELL. NO SIGNS OR SYMPTOMS OF DISTRESS NOTED AT THIS TIME. NO COMPLAINS OF PAIN OR DISCOMFORT AT THIS TIME. PATIENT HAS NO IV ACCESS PATIENT REFUSED NEW IV INSERTION. EXPLAINED RISKS AND BENEFITS. PATIENT STILL REFUSED. SAFETY PRECAUTIONS ENFORCED WITH BED LOCKED AND AT LOWEST POSITION. CALL LIGHT WITHIN REACH AT ALL TIMES. WILL CONTINUE TO MONITOR PATIENT.
[2021-12-29 20:00] VITALS: BP 125/52
[2021-12-29] MEDS: ENOXAPARIN SODIUM 40 MG/0.4 ML DISP.SYRIN SQ SCH (21:23)
--- NOTE | 2021-12-29 22:00 | NUR ---
MS RN NOTES PATIENT HAS NO IV ACCESS REFUSED NEW IV INSERTION AND IV MEDICATION. EXPLAINED RISKS AND BENEFITS. PATIENT STILL REFUSED. WILL CONTINUE TO MONITOR PATIENT.
--- NOTE | 2021-12-30 07:00 | NUR ---
MS RN CLOSING NOTES PATIENT STILL LAYING AWAKE IN BED. A/O X4. PATIENT WITH REGULAR AND UNLABORED BREATHING ON ROOM AIR TOLERATED WELL. NO SIGNS OR SYMPTOMS OF DISTRESS NOTED AT THIS TIME. NO COMPLAINS OF PAIN OR DISCOMFORT AT THIS TIME. PATIENT HAS NO IV ACCESS PATIENT REFUSED NEW IV INSERTION. EXPLAINED RISKS AND BENEFITS. PATIENT STILL REFUSED. SAFETY PRECAUTIONS ENFORCED WITH BED LOCKED AND AT LOWEST POSITION. CALL LIGHT WITHIN REACH AT ALL TIMES. WILL ENDORSE CONTINUITY OF CARE TO DAY SHIFT NURSE.
--- NOTE | 2021-12-30 07:42 | NUR ---
RN OPENING NOTES Patient seen comfortably lying in bed, no apparent distress noted, respirations even and unlabored, no SOB, denies any pain or discomfort at this time, no grimacing. Call light left within reach, safety precautions in place, brakes locked, side rails up X 2, will monitor closely for any changes.
[2021-12-30 08:00] VITALS: BP 140/53
[2021-12-30] MEDS: MULTIVIT W/MINERALS 1 TAB TABLET PO SCH (08:49)
[2021-12-30] MEDS: acetaZOLAMIDE 250 MG TABLET PO SCH (08:49)
[2021-12-30] MEDS: CHOLECALCIFEROL 1,000 UNIT TABLET (VIT D3) PO SCH (08:49)
[2021-12-30] MEDS: ASCORBIC ACID 500 MG TABLET PO SCH (08:49)
[2021-12-30] MEDS: PANTOPRAZOLE 40 MG TABLET.DR PO SCH (08:49)
[2021-12-30] MEDS: LOSARTAN POTASSIUM 50 MG TABLET PO SCH (08:50)
[2021-12-30] MEDS: CLOTRIMAZOLE 1% 15 GM TUBE TP SCH ×2 (09:03→16:19)
[2021-12-30] MEDS: THERAHONEY GEL 1.5 OZ TUBE TP SCH (09:03)
[2021-12-30] MEDS: MEROPENEM 1 G in IV NS 0.9% 100 ML IV SCH (11:40)
[2021-12-30 16:00] VITALS: BP 129/82
--- NOTE | 2021-12-30 18:40 | NUR ---
Patient to be discharged to [facility] spoke to Consuelo SETHI to give report (phone: [phone]). Patient seen comfortably lying in bed, no apparent distress noted, no shortness of breath, respirations even and unlabored, denies any pain or discomfort at this time, no dizziness, no palpitations, no chest pain, no numbness, no s/s of hypo/hyperglycemia, no tremors. Patient made aware of the situation, health teaching provided, verbalized understanding. Patient has history of dementia, has episodes of forgetfulness and confusion, 2RNs signed all discharge paper works, all belongings taken, inventory list signed by 2 RNs. Skin assessment done prior to discharge, skin intact, warm to touch, no pallor or cyanosis noted. Patient has perineal redness and sacral wound, photos taken and filed in her chart. Patient has midline on her right upper arm, informed Consuelo SETHI that IV line will not be removed because patient has discharge orders for IV antibiotics. Name wristband removed prior to discharge, surgical mask provided for patient to use. [facility] came to parts picker patient, exit care documents handed to frame welder cargo utility trailers, patient left unit at 1840, stable condition.
[2021-12-30 19:36] LABS: CALCIUM, SERUM 8.9 mg/dL (8.5-10.1); CREATININE 0.9 mg/dL (0.6-1.3); POTASSIUM 3.6 mmol/L (3.5-5.1)
== END 2021-12-30 19:05 | DRG 40 ==
LOC: ER 12:40 → TELE 23:45 → MED 12-26 09:44
PROVIDERS: ADMIT Nurse Practitioner Family; ATTEND Internal Medicine
PROC: 0JB70ZZ Excision of Back Subcutaneous Tissue and Fascia, Open Approach (ICD-10-PCS; principal; 2021-12-29)
PROC: 05H533Z Insertion of Infusion Device into Right Subclavian Vein, Percutaneous Approach (ICD-10-PCS; 2021-12-30)
PROC: B546ZZA Ultrasonography of Right Subclavian Vein, Guidance (ICD-10-PCS; 2021-12-30)
DX: G91.2 (Idiopathic) normal pressure hydrocephalus (principal); L89.153 Pressure ulcer of sacral region, stage 3; G93.41 Metabolic encephalopathy; N39.0 Urinary tract infection, site not specified; E44.1 Mild protein-calorie malnutrition; E87.1 Hypo-osmolality and hyponatremia; Z16.12 Extended spectrum beta lactamase (ESBL) resistance; M79.7 Fibromyalgia; M48.02 Spinal stenosis, cervical region; I10 Essential (primary) hypertension; Z20.822 Contact with and (suspected) exposure to COVID-19; Z87.891 Personal history of nicotine dependence; R53.1 Weakness; B96.20 Unspecified Escherichia coli [E. coli] as the cause of diseases classified elsewhere; E87.6 Hypokalemia; E78.5 Hyperlipidemia, unspecified; E88.09 Other disorders of plasma-protein metabolism, not elsewhere classified; F03.90 Unspecified dementia, unspecified severity, without behavioral disturbance, psychotic disturbance, mood disturbance, and anxiety; R29.6 Repeated falls; Z87.440 Personal history of urinary (tract) infections; Z68.25 Body mass index [BMI] 25.0-25.9, adult
CPT/HCPCS: 36410; 36415; 70450-TC; 71045-TC; 72125-TC; 80048-TC; 80076-TC; 81001; 83605-TC; 83735-TC; 84100-TC; 84439-TC; 84443-TC; 84484-TC; 85025-TC; 87040-TC; 87081-TC; 87086-TC; 87186-TC; 97116-TC; 97530-TC; C9803; G0378; J0696; J1650; J2185; J7030; J7060

== ENCOUNTER 2022-04-13 14:05 | Emergency (ER) | payer OTHER ==
[~2022-04-13] VITALS: Ht 160 cm; Wt 64.4 kg
[~2022-04-13 14:05] MED LIST changes: -CEFT1FRO2 IV; +MERO1VIA23 IV
--- NOTE | 2022-04-13 14:07 | NUR ---
BIB RA FROM HOME,SKIN TEAR,R FOREARM AND PAIN IN PREVIOUSLY INJURED RIGHT WRIST,S/P GLF,NO LOC. TO ER BED 14, HOOKED TO MONITOR, CHANGED TO HOSP GOWN, WARM BLANKET PROVIDED. AWAITING MD BLACKWOOD
--- NOTE | 2022-04-13 14:34 | NUR ---
DR ROJAS AT BEDSIDE
[2022-04-13] MEDS ORDERED: HYDR-4209 PO (15:05)
[2022-04-13] MEDS ORDERED: TDAP [DIPH/PERTUSSIS/TET] 0.5 ML VIAL IM ONE (15:27)
[2022-04-13] MEDS ORDERED: ACETAMINOPHEN ES 500 MG TABLET ONE (15:27)
[2022-04-13] MEDS: ACETAMINOPHEN ES 500 MG TABLET PO ONE (15:28)
[2022-04-13] MEDS: TDAP [DIPH/PERTUSSIS/TET] 0.5 ML VIAL IM ONE (15:34)
--- NOTE | 2022-04-13 16:00 | NUR ---
TDAP AND TYLENOL GIVEN INDICATED
--- NOTE | 2022-04-13 16:53 | NUR ---
[facility] CALLED FOR TRANSPORT ETA 35 MINS.
--- NOTE | 2022-04-13 18:16 | NUR ---
PICKED UP BY [facility] UNIT [address] IN STABLE CONDITION. ALL BELONGINGS BROUGHT WITH THE PATIENT. PATIENT WILL BE BROUGHT TO HER HOUSE WHERE HIS 2 SONS ARE WAITING FOR HER.
[2022-04-13 18:17] VITALS: BP 158/75
== END 2022-04-13 18:18 | disposition home or self-care (01) ==
LOC: ER 14:11
DX: S62.364A Nondisplaced fracture of neck of fourth metacarpal bone, right hand, initial encounter for closed fracture (principal); S62.366A Nondisplaced fracture of neck of fifth metacarpal bone, right hand, initial encounter for closed fracture; S51.811A Laceration without foreign body of right forearm, initial encounter; I10 Essential (primary) hypertension; M79.7 Fibromyalgia; Z96.643 Presence of artificial hip joint, bilateral; Z88.2 Allergy status to sulfonamides; Z79.899 Other long term (current) drug therapy; W18.30XA Fall on same level, unspecified, initial encounter; Y93.89 Activity, other specified; Y92.89 Other specified places as the place of occurrence of the external cause; Y99.8 Other external cause status
CPT/HCPCS: 29125; 73130; 90471; 90715; 99283; A6403

== ENCOUNTER 2022-04-15 10:49 | Inpatient (IN) | payer OTHER ==
[~2022-04-15] VITALS: Ht 160 cm; Wt 65.8 kg
[~2022-04-15 10:49] MED LIST changes: +HYDR-4209 PO
[2022-04-15] MEDS ORDERED: IV NS 0.9% 500 ML BAG IV ONE (11:00)
--- NOTE | 2022-04-15 11:10 | NUR ---
SALINE LOCK ESTABLISHED, BLOOD DRAWN AND SENT TO LAB
--- NOTE | 2022-04-15 11:17 | NUR ---
COVID SWAB DONE AND SENT TO LAB
[2022-04-15 11:24] LABS: BASOPHILS % (AUTO) 0.6 % (0.0-2.0); EOSINOPHILS % (AUTO) 4.4 % (0.0-6.0); HEMATOCRIT 31 % (33-45); HEMOGLOBIN 9.9 g/dL (11.5-14.8); LYMPHOCYTES # (AUTO) 1.9 K/uL (0.8-4.8); LYMPHOCYTES % (AUTO) 26.7 % (20.0-44.0); MEAN CORPUSCULAR HGB CONC 32 g/dl (31.0-36.0); MEAN CORPUSCULAR VOLUME 86 fL (82-100); MONOCYTES # (AUTO) 0.6 K/uL (0.1-1.30); MONOCYTES % (AUTO) 8.6 % (2.0-12.0); NEUTROPHILS # (AUTO) 4.3 K/uL (1.8-8.9); NEUTROPHILS % (AUTO) 59.7 % (43.0-81.0); PLATELET COUNT (AUTO) 307 K/uL (150-450); RED BLOOD CELL COUNT(AUTO) 3.65 MIL/uL (4.0-5.2); WHITE BLOOD COUNT (AUTO) 7.2 K/uL (4.3-11.0)
--- NOTE | 2022-04-15 11:30 | NUR ---
RT HAND SWALLEN AND DIFFORMITY
--- NOTE | 2022-04-15 11:50 | NUR ---
recived pt 89 yrs female came from [facility] s/ p fell down
[2022-04-15 11:52] LABS: CALCIUM, SERUM 8.6 mg/dL (8.5-10.1); CARBON DIOXIDE 21 mmol/L (21-32); CHLORIDE 111 mmol/L (98-107); CREATININE 1.1 mg/dL (0.6-1.3); GLUCOSE 169 mg/dL (74-106); POTASSIUM 3.4 mmol/L (3.5-5.1); SODIUM SERUM 140 mmol/L (136-145); UREA NITROGEN, BLOOD 28 mg/dL (7-18)
[2022-04-15 11:57] LABS: ALANINE AMINOTRANSFERASE 9 U/L (12-78); ALBUMIN 3.2 g/dL (3.4-5.0); ALKALINE PHOSPHATASE 94 U/L (46-116); ASPARTATE AMINOTRANSFERASE 14 U/L (15-37); BILIRUBIN,TOTAL 0.2 mg/dL (0.2-1.0); TOTAL PROTEIN, SERUM 6.7 g/dL (6.4-8.2)
--- NOTE | 2022-04-15 12:17 | NUR ---
URINE COLLECTED AND SENT TO LAB
[2022-04-15 12:53] LABS: BILIRUBIN,URINE NEGATIVE (NEGATIVE); COLOR,URINE YELLOW (YELLOW); LEUKOCYTE ESTERASE ,URINE LARGE (NEGATIVE); NITRITE, URINE NEGATIVE (NEGATIVE); PROTEIN,URINE NEGATIVE (NEGATIVE); UGLUCOSE NEGATIVE (NEGATIVE); UROBILINOGEN,URINE 0.2 EU/dL (0.2)
[2022-04-15 13:18] LABS: BACTERIA,URINE Many /HPF (None Seen); SQUAMOUS EPITHELIAL CELL,UR Few /HPF (None Seen); WBC,URINE 21-50 /HPF (0-3)
[2022-04-15] MEDS ORDERED: CEFTRIAXONE 1 G in IV D5W 50 ML IV ONE (14:00)
--- NOTE | 2022-04-15 14:14 | NUR ---
WATING FOR TO BE ADMIT IN PT
[2022-04-15] MEDS ORDERED: CEFTRIAXONE 1GM BAG (ER ONLY) 50 ML IV ONE (14:20)
--- NOTE | 2022-04-15 15:00 | NUR ---
SPLEANT ON RT HAND WITH IRLANDA BANDAGE WIGLING HERE RT FINGER
--- NOTE | 2022-04-15 15:30 | NUR ---
WATING FOR MONITER BED resting at this time no DISTRES
--- NOTE | 2022-04-15 16:45 | NUR ---
TOLORATED PO INTACK NO N/V
--- NOTE | 2022-04-15 17:15 | NUR ---
[facility] CALLED [employer] PAGED.
--- NOTE | 2022-04-15 17:42 | NUR ---
X RAY DONE ON RT ARM
--- NOTE | 2022-04-15 18:25 | NUR ---
WATING FOR BED
[2022-04-15] MEDS ORDERED: MAG HYDROX/AL HYDROX/SIMETH 30 ML UDC PO PRN (18:30)
[2022-04-15] MEDS ORDERED: ONDANSETRON HCL/PF 4 MG/2 ML VIAL IVP PRN (18:30)
[2022-04-15] MEDS ORDERED: Z GUARD REMEDY 4 OZ OINT TP PRN (18:30)
[2022-04-15] MEDS ORDERED: IV NS 0.9% 1,000 ML IV ONE (18:30)
--- NOTE | 2022-04-15 19:24 | NUR ---
HAND OFF CARMEN SETHI
[2022-04-15] MEDS ORDERED: HYDROCODONE/APAP 5/325MG TABLET ONE (19:54)
[2022-04-15] MEDS: HYDROCODONE/APAP 5/325MG TABLET PO PRN (20:13)
--- NOTE | 2022-04-15 21:22 | NUR ---
REPORT GIVEN TO ELLYN SETHI FOR JERO
[2022-04-15] MEDS ORDERED: ZOLPIDEM TARTRATE 5 MG TABLET PO PRN (22:00)
[2022-04-15] MEDS ORDERED: MAGNESIUM HYDROXIDE 30 ML UDC PO PRN (22:00)
--- NOTE | 2022-04-15 22:00 | NUR ---
[facility] NOTES ADMITTED THIS 89 YO FEMALE PATIENT FROM ER VIA [facility]. PATIENT IS AWAKE, ALERT AND ORIENTED X2. BREATHING IS EVEN AND NONLABORED. ON ROOM AIR; TOLERATING WELL. DENIES ANY PAIN OR DISCOMFORT OF THIS TIME. WITH IV ACCESS ON RIGHT ANTECUBITAL G#20; PATENT AND INTACT INFUSING WITH NS REGULATED @ 100ML/HR; FLUSHES WELL. VITAL SIGNS TAKEN: BP-154/68 MM HG, TEMP-97.2, OK-52, RR-18, O2 SAT 96%. SKIN ASSESSMENT DONE, WARM TO TOUCH. PICTURES TAKEN AND PLACED TO CHART. PATIENT ORIENTED TO THE UNIT AND ROOM. ALL BELONGINGS CHECKED AND WRITTEN IN THE INVENTORY LIST. ALL NEEDS ANTICIPATED AND ATTENDED. SAFETY MEASURES IMPLEMENTED: HEAD OF BED ELEVATED, CALL LIGHT AND TABLE WITHIN EASY REACH, SIDE RAILS UP X2, BED IN LOWEST LOCKED POSITION. WILL CONTINUE TO MONITOR
--- NOTE | 2022-04-16 05:58 | NUR ---
RN NOTE PATIENT POTASSIUM LEVEL IS 3.4; JAJA LORA NP NOTIFIED AND MADE AWARE WITH NO NEW ORDER MADE.
[2022-04-16 06:55] LABS: BASOPHILS % (AUTO) 0.6 % (0.0-2.0); EOSINOPHILS % (AUTO) 6.5 % (0.0-6.0); HEMATOCRIT 29 % (33-45); HEMOGLOBIN 9.3 g/dL (11.5-14.8); LYMPHOCYTES # (AUTO) 1.6 K/uL (0.8-4.8); LYMPHOCYTES % (AUTO) 26.3 % (20.0-44.0); MEAN CORPUSCULAR HGB CONC 32 g/dl (31.0-36.0); MEAN CORPUSCULAR VOLUME 84 fL (82-100); MONOCYTES # (AUTO) 0.6 K/uL (0.1-1.30); MONOCYTES % (AUTO) 9.2 % (2.0-12.0); NEUTROPHILS # (AUTO) 3.5 K/uL (1.8-8.9); NEUTROPHILS % (AUTO) 57.4 % (43.0-81.0); PLATELET COUNT (AUTO) 296 K/uL (150-450); RED BLOOD CELL COUNT(AUTO) 3.44 MIL/uL (4.0-5.2); WHITE BLOOD COUNT (AUTO) 6.1 K/uL (4.3-11.0)
--- NOTE | 2022-04-16 07:10 | NUR ---
MS RN CLOSING NOTES PATIENT IS IN BED; AWAKE, A/O X2. BREATHING EVENLY AND NONLABORED. IN NO ACUTE DISTRESS NOTED. STABLE ON ROOM AIR. NEEDS ANTICIPATED AND ATTENDED. SAFETY MEASURES IN PLACE: CALL LIGHT AND TABLE WITHIN EASY REACH, SIDE RAILS UP X2, BED IN LOWEST LOCKED POSITION. ENDORSED TO RN CHRISSIE FOR JERO.
[2022-04-16 07:24] LABS: CALCIUM, SERUM 8.8 mg/dL (8.5-10.1); CARBON DIOXIDE 23 mmol/L (21-32); CHLORIDE 115 mmol/L (98-107); GLUCOSE 86 mg/dL (74-106); MAGNESIUM 2.1 mg/dL (1.8-2.4); PHOSPHORUS 3.3 mg/dL (2.5-4.9); POTASSIUM 3.6 mmol/L (3.5-5.1); SODIUM SERUM 147 mmol/L (136-145); UREA NITROGEN, BLOOD 20 mg/dL (7-18)
[2022-04-16] MEDS ORDERED: Medication Not On Formulary EA (Omeprazole 40 MG) PO SCH (07:30)
[2022-04-16 07:38] LABS: PREALBUMIN 19.1 MG/DL (18.0-35.7)
[2022-04-16] MEDS: PANTOPRAZOLE 40 MG TABLET.DR PO SCH (08:31)
[2022-04-16] MEDS ORDERED: Medication Not On Formulary EA (Multivitamin With Minerals (One Daily Complete) 1 EACH) PO SCH (09:00)
[2022-04-16] MEDS ORDERED: Medication Not On Formulary EA (Cholecalciferol (Vitamin D3) (Vitamin D3) 1,000 UNIT) PO SCH (09:00)
[2022-04-16] MEDS ORDERED: Medication Not On Formulary EA (Losartan Potassium 100 MG) PO SCH (09:00)
[2022-04-16] MEDS: MULTIVITAMINS,THERAGRAN 1 UDTAB TABLET PO SCH (09:01)
[2022-04-16] MEDS: ASCORBIC ACID 500 MG TABLET PO SCH (09:01)
[2022-04-16] MEDS: acetaZOLAMIDE 250 MG TABLET PO SCH (09:01)
[2022-04-16] MEDS: CHOLECALCIFEROL 1,000 UNIT TABLET (VIT D3) PO SCH (09:03)
[2022-04-16] MEDS: LOSARTAN POTASSIUM 50 MG TABLET PO SCH (09:03)
[2022-04-16] MEDS: CEFTRIAXONE 1 G in IV D5W 50 ML IV SCH (16:44)
--- NOTE | 2022-04-16 19:10 | NUR ---
Rn opening notes Pt is sitting in bed comfortably watching TV. Pt is alert and orientedX2 with episode of confusion. On room air. no SOB. No S/s of distress noted. INDIRA midline is clean, and intact. R arm veronica bandage and splinted R ulnar is in placed. safety precautions is maintianed. Bed at low position, brakes locked, side rails upX3, hob elevated and call light is within reach. Will continue to monitor.
[2022-04-16 20:00] VITALS: BP 154/75
[2022-04-16] MEDS: HYDROCODONE/APAP 5/325MG TABLET PO PRN (23:51)
--- NOTE | 2022-04-16 23:51 | NUR ---
RN notes Pt is complaining of pain on R arm and requesting pain med. administered norco 5/1 tab/po/prn as ordered per Pt' request. safety precautions is maintained. Will continue to monitor.
--- NOTE | 2022-04-17 06:38 | NUR ---
Rn closing notes Pt is resting in bed comfortably. Pt is alert and orientedX2 with episode of confusion. On room air. no SOB. No S/s of distress noted. INDIRA midline is clean, and intact. R arm veronica bandage and splinted R ulnar is in placed and dry. Kept Pt clean, dry and comfortable. All needs met and attended. safety precautions is maintianed. Bed at low position, brakes locked, side rails upX3, hob elevated and call light is within reach. Will endorse to am nurse for JERO.
[2022-04-17 07:00] LABS: BASOPHILS % (AUTO) 0.5 % (0.0-2.0); EOSINOPHILS % (AUTO) 6.6 % (0.0-6.0); HEMATOCRIT 28 % (33-45); HEMOGLOBIN 8.9 g/dL (11.5-14.8); LYMPHOCYTES # (AUTO) 1.8 K/uL (0.8-4.8); LYMPHOCYTES % (AUTO) 30.4 % (20.0-44.0); MEAN CORPUSCULAR HGB CONC 32 g/dl (31.0-36.0); MEAN CORPUSCULAR VOLUME 86 fL (82-100); MONOCYTES # (AUTO) 0.5 K/uL (0.1-1.30); MONOCYTES % (AUTO) 8.8 % (2.0-12.0); NEUTROPHILS # (AUTO) 3.2 K/uL (1.8-8.9); NEUTROPHILS % (AUTO) 53.7 % (43.0-81.0); PLATELET COUNT (AUTO) 203 K/uL (150-450); RED BLOOD CELL COUNT(AUTO) 3.23 MIL/uL (4.0-5.2); WHITE BLOOD COUNT (AUTO) 5.9 K/uL (4.3-11.0)
--- NOTE | 2022-04-17 07:00 | NUR ---
MS RN OPENING NOTES PATIENT LAYING IN BED, A/O X 2, WITH SOME CONFUSION. TOLERATING WELL ON ROOM AIR WITH NO S/S RESPIRATORY DISTRESS. NO COMPLAINTS OF PAIN OR DISCOMFORT AT THIS TIME. INDIRA MIDLINE CLEAN, INTACT, AND FLUSHING WELL. R ARM IRLANDA BANDAGE CLEAN, DRY, AND INTACT. SAFETY MEASURES IN PLACE: BED IN LOWEST LOCKED POSITION, SIDE RAILS UP X 2, CALL LIGHT WITHIN REACH. WILL CONTINUE TO MONITOR.
[2022-04-17] MEDS: PANTOPRAZOLE 40 MG TABLET.DR PO SCH (07:22)
[2022-04-17 07:36] LABS: CALCIUM, SERUM 7.9 mg/dL (8.5-10.1); CREATININE 0.6 mg/dL (0.6-1.3)
[2022-04-17 07:51] LABS: POTASSIUM 6.5 mmol/L (3.5-5.1)
[2022-04-17] MEDS: acetaZOLAMIDE 250 MG TABLET PO SCH (08:58)
[2022-04-17] MEDS: CHOLECALCIFEROL 1,000 UNIT TABLET (VIT D3) PO SCH (08:58)
[2022-04-17] MEDS: ASCORBIC ACID 500 MG TABLET PO SCH (08:58)
[2022-04-17] MEDS: MULTIVITAMINS,THERAGRAN 1 UDTAB TABLET PO SCH (08:58)
[2022-04-17] MEDS: LOSARTAN POTASSIUM 50 MG TABLET PO SCH (08:59)
[2022-04-17] MEDS: CEFTRIAXONE 1 G in IV D5W 50 ML IV SCH (14:31)
[2022-04-17 20:00] VITALS: BP 156/72
--- NOTE | 2022-04-17 20:17 | NUR ---
MS RN OPENING NOTES; RECEIVED PATIENT AWAKE IN BED, BED IN LOW POSITION CALL LIGHTS WITHIN REACH, NO COMPLAIN OF PAIN AND DISCOMFORT AT THIS TIME ON ROOM AIR SATURATING WELL, WITH INDIRA ML SL, WITH RIGHT ARM SLING, PATIENT KEPT CLEAN AND DRY ALL NEEDS MET WILL CONTINUE TO MONITOR.
[2022-04-18] MEDS: ACETAMINOPHEN 325 MG TABLET PO PRN (01:03)
--- NOTE | 2022-04-18 05:02 | NUR ---
MS SETHI NOTES PATIENT WAS NOTED WITH POTASSIUM LEVEL OF 6.5 FROM YESTERDAY,REFER TO [facility] AND ORDER AM LABS FOR FURTHER EVALUATION NOTED AND CARRY OUT Addendum: 04/18/22 at 0804 by HAY NEVES RN NAVDEEP NOTES: -DURING ENDORSEMENT RELAYED TO AM NURSE QUINTERO FOR FURTHER MONITORING OF HIS POTASSIUM
[2022-04-18 06:55] LABS: BASOPHILS % (AUTO) 0.7 % (0.0-2.0); EOSINOPHILS % (AUTO) 5.1 % (0.0-6.0); HEMATOCRIT 31 % (33-45); HEMOGLOBIN 10.1 g/dL (11.5-14.8); LYMPHOCYTES # (AUTO) 1.9 K/uL (0.8-4.8); LYMPHOCYTES % (AUTO) 27.8 % (20.0-44.0); MEAN CORPUSCULAR HGB CONC 33 g/dl (31.0-36.0); MEAN CORPUSCULAR VOLUME 84 fL (82-100); MONOCYTES # (AUTO) 0.5 K/uL (0.1-1.30); MONOCYTES % (AUTO) 7.5 % (2.0-12.0); NEUTROPHILS # (AUTO) 4.1 K/uL (1.8-8.9); NEUTROPHILS % (AUTO) 58.9 % (43.0-81.0); PLATELET COUNT (AUTO) 321 K/uL (150-450); RED BLOOD CELL COUNT(AUTO) 3.66 MIL/uL (4.0-5.2)
[2022-04-18 07:32] LABS: CALCIUM, SERUM 8.8 mg/dL (8.5-10.1); CREATININE 0.9 mg/dL (0.6-1.3); POTASSIUM 3.4 mmol/L (3.5-5.1)
[2022-04-18 08:00] VITALS: BP 147/73
--- NOTE | 2022-04-18 08:01 | NUR ---
MS RN CLOSING NOTES: PATIENT SLEEP IN BNED COMFORTABLY, BED IN LOW POSITION CALL LIGHTS WITHIN REACH, NO COMPLAIN OF PAIN AND DISCOMFORT AT THIS TIME ON ROOM AIR SATURATING WELL, SKIN ASSESSMENT DONE PICTURED, KEPT CLEAN AND DRY ALL NEEDS MET ENDORSE TO INCOMING SHIFT.
[2022-04-18] MEDS: CHOLECALCIFEROL 1,000 UNIT TABLET (VIT D3) PO SCH (08:10)
[2022-04-18] MEDS: PANTOPRAZOLE 40 MG TABLET.DR PO SCH (08:10)
[2022-04-18] MEDS: MULTIVITAMINS,THERAGRAN 1 UDTAB TABLET PO SCH (08:10)
[2022-04-18] MEDS: ASCORBIC ACID 500 MG TABLET PO SCH (08:10)
[2022-04-18] MEDS: LOSARTAN POTASSIUM 50 MG TABLET PO SCH (08:12)
[2022-04-18] MEDS: acetaZOLAMIDE 250 MG TABLET PO SCH (08:12)
--- NOTE | 2022-04-18 09:35 | NUR ---
MS RN OPENING NOTES RECEIVED PATIENT LAYING IN BED, A/O X 3, ABLE TO MAKE NEEDS KNOWN. PATIENT ON ROOM AIR WITH NO S/S RESPIRATORY DISTRESS. NO COMPLAINTS OF PAIN OR DISCOMFORT AT THIS TIME. INDIRA MIDLINE CLEAN, INTACT, FLUSHING WELL. R ARM IRLANDA BANDAGE CLEAN, DRY, AND INTACT. SAFETY MEASURES IN PLACE: BED IN LOWEST LOCKED POSITION, SIDE RAILS UP X 2, CALL LIGHT WITHIN REACH. WILL CONTINUE TO MONITOR PATIENT.
[2022-04-18] MEDS ORDERED: POTASSIUM CHLORIDE 20 MEQ TAB.PRT.SR PO SCH (12:30)
[2022-04-18] MEDS: CEFTRIAXONE 1 G in IV D5W 50 ML IV SCH (13:30)
[2022-04-18 16:00] VITALS: BP 137/69
--- NOTE | 2022-04-18 16:05 | NUR ---
MS RN NOTES PATIENT REMOVED HER MIDLINE. TRIED STARTING A NEW IV BUT NO SUCCESS. PATIENT IS HARD STICK. DUE FOR DISCHARGE TOMORROW.
--- NOTE | 2022-04-18 18:51 | NUR ---
MS RN CLOSING NOTES PATIENT REMAINS LAYING IN BED, A/O X 3, ABLE TO MAKE NEEDS KNOWN, WATCHING TV. PATIENT ON ROOM AIR WITH NO S/S RESPIRATORY DISTRESS DURING THE DAY. NO COMPLAINTS OF PAIN OR DISCOMFORT. NO IV ACCESS AT THIS TIME. PATIENT IS HARD STICK. CHARGE NURSE AWARE. R ARM IRLANDA BANDAGE CLEAN, DRY, AND INTACT. ALL NEEDS ATTENDED DURING THE DAY. SAFETY MEASURES IN PLACE: BED IN LOWEST LOCKED POSITION, SIDE RAILS UP X 2, CALL LIGHT WITHIN REACH. WILL ENDORSE TO CROP GRAIN OR LIVESTOCK FARM MANAGER NURSE.
--- NOTE | 2022-04-18 19:20 | NUR ---
MS/RN OPENING NOTE RECEIVED PATIENT RESTING IN BED. ALERT AND ORIENTED X 1-2. ABLE TO MAKE NEEDS KNOWN. DENIES PAIN AT THIS TIME. CONTINUES ON ROOM AIR WITH NO S/SX OF RESPIRATORY DISTRESS NOTED. PATIENT REMOVED MIDLINE IV ACCESS ON AM SHIFT. MULTIPLE PIV ATTEMPTS WITH NO SUCCESS. PER AM RN PATIENT REFUSING IV ACCESS AT THIS TIME. MD AWARE. CONTINUES ON CARDIAC DIET WITH NO S/SX OF ASPIRATION NOTED. CALL LIGHT WITHIN REACH. ASPIRATION, FALL AND SAFETY PRECAUTIONS MAINTAINED. ALL NEEDS ATTENDED TO AT THIS TIME.
[2022-04-18] MEDS: hydrALAZINE HCL 25 MG TABLET PO PRN (20:45)
[2022-04-18] MEDS: HYDROCODONE/APAP 5/325MG TABLET PO PRN (22:17)
--- NOTE | 2022-04-19 06:20 | NUR ---
MS/RN CLOSING NOTE PATIENT CURRENTLY RESTING IN BED. ALERT AND ORIENTED X 1-2. ABLE TO MAKE NEEDS KNOWN. DENIES PAIN AT THIS TIME. CONTINUES ON ROOM AIR WITH NO S/SX OF RESPIRATORY DISTRESS NOTED. PATIENT REMOVED MIDLINE IV ACCESS ON AM SHIFT 04/18. MULTIPLE PIV ATTEMPTS WITH NO SUCCESS. MD AWARE. CONTINUES ON CARDIAC DIET WITH NO S/SX OF ASPIRATION NOTED. CALL LIGHT WITHIN REACH. ASPIRATION, FALL AND SAFETY PRECAUTIONS MAINTAINED. WILL ENDORSE PLAN OF CARE TO ONCOMING SHIFT RN.
[2022-04-19 06:28] LABS: BASOPHILS % (AUTO) 0.6 % (0.0-2.0); EOSINOPHILS % (AUTO) 4.9 % (0.0-6.0); HEMATOCRIT 31 % (33-45); HEMOGLOBIN 10.3 g/dL (11.5-14.8); LYMPHOCYTES # (AUTO) 2.5 K/uL (0.8-4.8); LYMPHOCYTES % (AUTO) 32.7 % (20.0-44.0); MEAN CORPUSCULAR HGB CONC 33 g/dl (31.0-36.0); MEAN CORPUSCULAR VOLUME 83 fL (82-100); MONOCYTES # (AUTO) 0.7 K/uL (0.1-1.30); MONOCYTES % (AUTO) 9.3 % (2.0-12.0); NEUTROPHILS % (AUTO) 52.5 % (43.0-81.0); PLATELET COUNT (AUTO) 298 K/uL (150-450); RED BLOOD CELL COUNT(AUTO) 3.72 MIL/uL (4.0-5.2); WHITE BLOOD COUNT (AUTO) 7.6 K/uL (4.3-11.0)
--- NOTE | 2022-04-19 07:35 | NUR ---
RN OPENING NOTE PATIENT RECEIVED LAYING IN BED AWAKE AND PLEASANT UPON GREETING. A/OX 1-2. NO VISUAL S/SX OF DISTRESS OBSERVED. NO CURRENT C/O PAIN OR SOB REPORTED. RIGHT ARM SPLINT REMAINS IN TACT AND WRAPPED W/ IRLANDA BANDAGE. CONTINUES TO HAVE NO IV ACCESS AT THIS TIME. SAFETY MEASURES IN PLACE WITH BED IN LOWEST POSITION AND LOCKED. SIDERAILS UP X2 AND CALL LIGHT WITHIN REACH. WILL CONT TO MONITOR.
[2022-04-19 08:00] VITALS: BP 130/79
[2022-04-19] MEDS: acetaZOLAMIDE 250 MG TABLET PO SCH (08:58)
[2022-04-19] MEDS: LOSARTAN POTASSIUM 50 MG TABLET PO SCH (08:59)
[2022-04-19] MEDS: PANTOPRAZOLE 40 MG TABLET.DR PO SCH (08:59)
[2022-04-19] MEDS: MULTIVITAMINS,THERAGRAN 1 UDTAB TABLET PO SCH (08:59)
[2022-04-19] MEDS: CHOLECALCIFEROL 1,000 UNIT TABLET (VIT D3) PO SCH (08:59)
[2022-04-19] MEDS: ASCORBIC ACID 500 MG TABLET PO SCH (08:59)
[2022-04-19 09:37] LABS: CALCIUM, SERUM 8.8 mg/dL (8.5-10.1); CREATININE 0.9 mg/dL (0.6-1.3); POTASSIUM 3.6 mmol/L (3.5-5.1)
--- NOTE | 2022-04-19 11:43 | NUR ---
WOUND CARE CONSULT: PT PRESENTS WITH INCONTINENCE, AREAS OF DISCOLORATION TO LEGS AND BREASTS WELL EXCORIATED AREAS TO BUTTOCKS, PRESENT ON ADMISSION. RECOMMENDATIONS MADE FOR SKIN PROTECTION. DISCUSSED WITH NURSING STAFF. MD IN AGREEMENT WITH PLAN OF CARE.
--- NOTE | 2022-04-19 12:38 | NUR ---
SS consult requested for in home resources. SW will follow up at a later time.
[2022-04-19] MEDS: CEFTRIAXONE 1 G in IV D5W 50 ML IV SCH (13:24)
[2022-04-19] MEDS: HYDROCODONE/APAP 5/325MG TABLET PO PRN ×2 (15:16→23:26)
[2022-04-19 17:00] VITALS: BP 110/63
--- NOTE | 2022-04-19 19:00 | NUR ---
RN CLOSING NOTE PATIENT REMAINED IN BED THROUGHOUT SHIFT WITH INTERMITTENT EPISODES OF RESTING AND AWAKE. A/O X1-2 WITH EPISODES OF CONFUSION. NO S/SX OF DISTRESS OR SOB REPORTED OR OBSERVED. C/O PAIN TO BILAT-LOWER EXTREMITY AND VERBALIZED 8/10 PAIN LEVEL. RECEIVED PRN NORCO @ 1516. MEDICATION EFFECTIVE PATIENT NO LONGER HAD C/O OF PAIN. MIDLINE TO INDIRA PLACED ON SHIFT. PATIENT TOLERATED PROCEDURE WELL. IV ACCESS REMAINS INTACT AND FLUSHING WELL. PURWICK DEVICE PLACE TO ASSIST WITH PATIENT URINARY INCONTINENCE. PATIENT TOLERATED PROCEDURE AND USE OF DEVICE WELL. TOLERATED ALL MEDICATION AND CARE WELL. SAFETY MEASURES REMAIN IN PLACE WITH BED IN LOWEST POSITION AND LOCKED, SIDERAILS UP X2 AND CALL LIGHT WITHIN REACH. WILL CONTINUE TO MONITOR.
[2022-04-19 20:00] VITALS: BP 164/99
[2022-04-19] MEDS: hydrALAZINE HCL 25 MG TABLET PO PRN (20:35)
[2022-04-20 06:46] LABS: BASOPHILS # (AUTO) 0.1 K/uL (0.0-0.2); BASOPHILS % (AUTO) 1.2 % (0.0-2.0); EOSINOPHILS % (AUTO) 5.2 % (0.0-6.0); HEMATOCRIT 33 % (33-45); HEMOGLOBIN 10.7 g/dL (11.5-14.8); LYMPHOCYTES # (AUTO) 3.3 K/uL (0.8-4.8); LYMPHOCYTES % (AUTO) 34.4 % (20.0-44.0); MEAN CORPUSCULAR HGB CONC 32 g/dl (31.0-36.0); MEAN CORPUSCULAR VOLUME 85 fL (82-100); MONOCYTES # (AUTO) 0.8 K/uL (0.1-1.30); MONOCYTES % (AUTO) 8.6 % (2.0-12.0); NEUTROPHILS # (AUTO) 4.9 K/uL (1.8-8.9); NEUTROPHILS % (AUTO) 50.6 % (43.0-81.0); PLATELET COUNT (AUTO) 216 K/uL (150-450); WHITE BLOOD COUNT (AUTO) 9.6 K/uL (4.3-11.0)
--- NOTE | 2022-04-20 07:40 | NUR ---
RN OPENING NOTE PATIENT RECEIVED LAYING IN BED AND SLEEPING. A/OX 1-2. NO VISUAL S/SX OF DISTRESS OBSERVED. NO CURRENT C/O PAIN OR SOB REPORTED. RIGHT ARM SPLINT REMAINS IN TACT AND WRAPPED W/ IRLANDA BANDAGE. INDIRA MIDLINE ACCESS REMAINS INTACT. SAFETY MEASURES IN PLACE WITH BED IN LOWEST POSITION AND LOCKED. SIDERAILS UP X2 AND CALL LIGHT WITHIN REACH. WILL CONT TO MONITOR.
--- NOTE | 2022-04-20 07:44 | NUR ---
MS RN CLOSING NOTES PATIENT SLEEPING IN BED, ALERT/ORIENTED X 1-2, PERIODS OF CONFUSION. PATIENT STABLE ON RA, NO S/S OF DISTRESS OR SOB NOTED, BREATHING EVEN AND UNLABORED. NO SIGNIFICANT CHANGES THROUGHOUT SHIFT, MEDICATIONS GIVEN ORDERED, PT NEEDS MET THROUGHOUT SHIFT. INDIRA MIDLINE INTACT AND FLUSHING WELL. RIGHT ARM SPLINT WITH IRLANDA WRAP IN PLACE. PATIENT TURNED Q2H, MEPILEX PLACED IN SACRUM AND BILATERAL HEELS. PERWICK IN PLACE AND DRAINING YELLOW URINE. SAFETY MEASURES IN PLACE: CALL LIGHT WITHIN REACH, SIDE RAILS UP X 3, BED LOCKED IN LOWEST POSITION, BED ALARM ON. ENDORSED TO DAY SHIFT NURSE FOR CONTINUITY OF CARE
[2022-04-20 08:00] VITALS: BP 149/64
[2022-04-20] MEDS: ASCORBIC ACID 500 MG TABLET PO SCH (08:59)
[2022-04-20] MEDS: PANTOPRAZOLE 40 MG TABLET.DR PO SCH (08:59)
[2022-04-20] MEDS: MULTIVITAMINS,THERAGRAN 1 UDTAB TABLET PO SCH (09:00)
[2022-04-20] MEDS: LOSARTAN POTASSIUM 50 MG TABLET PO SCH (09:00)
[2022-04-20] MEDS: CHOLECALCIFEROL 1,000 UNIT TABLET (VIT D3) PO SCH (09:00)
[2022-04-20] MEDS: acetaZOLAMIDE 250 MG TABLET PO SCH (09:00)
[2022-04-20 09:01] LABS: CALCIUM, SERUM 8.8 mg/dL (8.5-10.1); CREATININE 0.9 mg/dL (0.6-1.3); MAGNESIUM 2.3 mg/dL (1.8-2.4); PHOSPHORUS 3.8 mg/dL (2.5-4.9); POTASSIUM 3.7 mmol/L (3.5-5.1)
[2022-04-20] MEDS: CEFTRIAXONE 1 G in IV D5W 50 ML IV SCH (14:36)
[2022-04-20 16:00] VITALS: BP 113/68
--- NOTE | 2022-04-20 18:30 | NUR ---
RN CLOSING NOTE PATIENT OBSERVED IN BED THROUGHOUT SHIFT WITH INTERMITTENT EPISODES OF RESTING AND AWAKE. REMAINS A/O X1-2 WITH EPISODES OF CONFUSION. EASILY REDIRECT-ABLE. NO S/SX OF DISTRESS OR SOB REPORTED OR OBSERVED. NO C/O PAIN. IV ACCESS MIDLINE TO INDIRA REMAINS PATENT AND FLUSHING WELL. PATIENT TOLERATED IV MEDICATIONS WELL. PURWICK DEVICE REMAINS IN PLACE AND DRAINING CLEAR URINE. TOLERATED ALL MEDICATION AND CARE WELL. SAFETY MEASURES REMAIN IN PLACE WITH BED IN LOWEST POSITION AND LOCKED, SIDERAILS UP X2 AND CALL LIGHT WITHIN REACH. WILL CONTINUE TO MONITOR.
--- NOTE | 2022-04-20 19:30 | NUR ---
MS RN OPENING NOTE PATIENT RECEIVED IN BED, AWAKE. A/OX 1-2. ABLE TO MAKE NEEDS KNOWN. ON ROOM AIR, TOLERATING WELL. NO S/SX OF ACUTE DISTRESS NOTED AT THIS TIME. RIGHT ARM SPLINT REMAINS INTACT AND WRAPPED WITH IRLANDA BANDAGE. INDIRA MIDLINE ACCESS NOTED, # 18g SL. ALL SAFETY MEASURES IN PLACE: BED IN LOWEST POSITION AND LOCKED. SIDE RAILS UP X2 AND CALL LIGHT WITHIN REACH. WILL CONTINUE TO MONITOR.
[2022-04-20 20:00] VITALS: BP 117/38
--- NOTE | 2022-04-20 21:10 | NUR ---
RN NOTE AM/PM CARE DONE. KEPT PT CLEAN AND COMFORTABLE.
[2022-04-20] MEDS: ACETAMINOPHEN 325 MG TABLET PO PRN (21:28)
--- NOTE | 2022-04-21 06:37 | NUR ---
RN NOTE TOOK PT'S NASAL SWAB FOR COVID RAPID TEST. SPECIMEN BROUGHT TO LAB.
--- NOTE | 2022-04-21 06:38 | NUR ---
RN NOTE PT REMAINED STABLE THROUGHOUT THE NIGHT. NO SIGNS OF DISTRESS NOTED. ALL VS WNL. SAFETY PRECAUTIONS IN PLACE. WILL ENDORSE TO AM SHIFT NURSE FOR JERO.
--- NOTE | 2022-04-21 07:30 | NUR ---
MS RN OPENING NOTES RECEIVED PATIENT LAYING IN BED AND SLEEPING. A/OX 1-2. NO S/S OF SOB AND DISTRESS OBSERVED. PATIENT'S CURRENT PAIN LEVEL IS 0/10, AND NO DISCOMFORT. RIGHT ARM SPLINT REMAINS IN TACT AND WRAPPED W/ IRLANDA BANDAGE, C/D/I. IV ACCESS IN LEFT UPPER ARM, MIDLINE ACCESS REMAINS, PATENT AND INTACT. SAFETY MEASURES IN PLACE WITH BED IN LOWEST POSITION AND LOCKED. SIDE RAILS UP X2 AND CALL LIGHT WITHIN REACH. WILL CONT TO MONITOR FOR JERO.
[2022-04-21 08:00] VITALS: BP 118/83
[2022-04-21] MEDS: MULTIVITAMINS,THERAGRAN 1 UDTAB TABLET PO SCH (08:26)
[2022-04-21] MEDS: CHOLECALCIFEROL 1,000 UNIT TABLET (VIT D3) PO SCH (08:26)
[2022-04-21] MEDS: ASCORBIC ACID 500 MG TABLET PO SCH (08:26)
[2022-04-21] MEDS: PANTOPRAZOLE 40 MG TABLET.DR PO SCH (08:26)
[2022-04-21] MEDS: acetaZOLAMIDE 250 MG TABLET PO SCH (08:26)
[2022-04-21 08:28] VITALS: BP 118/83
[2022-04-21] MEDS: LOSARTAN POTASSIUM 50 MG TABLET PO SCH (08:28)
[2022-04-21] MEDS: CEFTRIAXONE 1 G in IV D5W 50 ML IV SCH (15:13)
--- NOTE | 2022-04-21 16:30 | NUR ---
MS FLIGHT CREW TIME CLERK NOTES PATIENT GOT PICKED UP BY 3 DRAPERY SUPERVISOR BY THE ANTONIA @ [id number]. PATIENT IS A/O X 1-2. PATIENT IS ON ROOM AIR, AND ABLE TO TOLERATE IT; S/S OF SOB AND DISTRESS OBSERVED. PATIENT'S CURRENT PAIN LEVEL IS 0/10, AND NO DISCOMFORT. RIGHT ARM SPLINT REMAINS IN TACT AND WRAPPED W/ IRLANDA BANDAGE, C/D/I. IV ACCESS IN LEFT UPPER ARM, MIDLINE ACCESS GOT DISCONNECTED, NO S/S OF INFILTRATION AND INFLAMMATION. REPORT WILL BE GIVEN TO ELLIOTT (DISPUTE COORDINATOR).
--- NOTE | 2022-04-22 10:08 | NUR ---
SS received consult for in home resources. Pt. has departed from hospital, unable to see pt.
== END 2022-04-21 17:31 | DRG 689 ==
LOC: ER 11:05 → TRANSITION 18:23 → MED 21:02
PROVIDERS: ADMIT Family Medicine; ATTEND Student in an Organized Health Care Education/Training Program
PROC: 05HA33Z Insertion of Infusion Device into Left Brachial Vein, Percutaneous Approach (ICD-10-PCS; principal; 2022-04-16)
PROC: 05HF33Z Insertion of Infusion Device into Left Cephalic Vein, Percutaneous Approach (ICD-10-PCS; 2022-04-19)
DX: N39.0 Urinary tract infection, site not specified (principal); N17.0 Acute kidney failure with tubular necrosis; E44.1 Mild protein-calorie malnutrition; E87.0 Hyperosmolality and hypernatremia; E87.6 Hypokalemia; B96.20 Unspecified Escherichia coli [E. coli] as the cause of diseases classified elsewhere; D64.9 Anemia, unspecified; R73.9 Hyperglycemia, unspecified; E88.09 Other disorders of plasma-protein metabolism, not elsewhere classified; F03.90 Unspecified dementia, unspecified severity, without behavioral disturbance, psychotic disturbance, mood disturbance, and anxiety; I10 Essential (primary) hypertension; I25.10 Atherosclerotic heart disease of native coronary artery without angina pectoris; E78.5 Hyperlipidemia, unspecified; M79.7 Fibromyalgia; S62.304A Unspecified fracture of fourth metacarpal bone, right hand, initial encounter for closed fracture; S62.306A Unspecified fracture of fifth metacarpal bone, right hand, initial encounter for closed fracture; W06.XXXA Fall from bed, initial encounter; Y92.003 Bedroom of unspecified non-institutional (private) residence as the place of occurrence of the external cause; Z96.643 Presence of artificial hip joint, bilateral; Z20.822 Contact with and (suspected) exposure to COVID-19
CPT/HCPCS: 36410; 36415; 71045-TC; 73130-TC; 80048-TC; 80076-TC; 81001; 82550-TC; 82728-TC; 82962-TC; 83540-TC; 83605-TC; 83735-TC; 83880; 84100-TC; 84134-TC; 84484-TC; 85025-TC; 87040-TC; 87086-TC; 87186-TC; 97112-TC; 97530-TC; C9803; G0378; J0696; J7030; J7040; J7060

== ENCOUNTER 2022-05-18 09:35 | Inpatient (IN) | payer OTHER ==
[~2022-05-18] VITALS: Ht 160 cm; Wt 71.7 kg
[~2022-05-18 09:35] MED LIST changes: -MERO1VIA23 IV
--- NOTE | 2022-05-18 09:40 | NUR ---
RECEIVED PT 89 YRS FEMALE CAME FROM HOME C/O FOUND ON FLOOR BY SON AWAKE PERIODE OF CONFUTION RESPRATION SPONT AND EASY
--- NOTE | 2022-05-18 10:05 | NUR ---
COVIDE SWABE DONE AND SENT TO LAB
--- NOTE | 2022-05-18 10:25 | NUR ---
INSERTED ANGO CATH # [id number] ON LT AC BLOOD DROW AND SENT TO LAB
--- NOTE | 2022-05-18 10:28 | NUR ---
EKG DONE AT BED SIDE
[2022-05-18] MEDS ORDERED: CRAN500T3 PO (10:34)
[2022-05-18] MEDS ORDERED: TRAM50TA2 PO (10:34)
--- NOTE | 2022-05-18 10:38 | NUR ---
CXRAY DONE AT BED SIDE
[2022-05-18 11:23] LABS: BASOPHILS % (AUTO) 0.7 % (0.0-2.0); HEMATOCRIT 31 % (33-45); HEMOGLOBIN 9.9 g/dL (11.5-14.8); LYMPHOCYTES # (AUTO) 1.5 K/uL (0.8-4.8); LYMPHOCYTES % (AUTO) 22.3 % (20.0-44.0); MEAN CORPUSCULAR HGB CONC 32 g/dl (31.0-36.0); MEAN CORPUSCULAR VOLUME 85 fL (82-100); MONOCYTES # (AUTO) 0.5 K/uL (0.1-1.30); MONOCYTES % (AUTO) 7.8 % (2.0-12.0); NEUTROPHILS # (AUTO) 4.5 K/uL (1.8-8.9); NEUTROPHILS % (AUTO) 66.2 % (43.0-81.0); PLATELET COUNT (AUTO) 287 K/uL (150-450); RED BLOOD CELL COUNT(AUTO) 3.69 MIL/uL (4.0-5.2); WHITE BLOOD COUNT (AUTO) 6.8 K/uL (4.3-11.0)
[2022-05-18 11:35] LABS: CALCIUM, SERUM 9.1 mg/dL (8.5-10.1); CARBON DIOXIDE 25 mmol/L (21-32); CHLORIDE 110 mmol/L (98-107); CREATININE 1.1 mg/dL (0.6-1.3); GLUCOSE 95 mg/dL (74-106); POTASSIUM 3.8 mmol/L (3.5-5.1); SODIUM SERUM 143 mmol/L (136-145); UREA NITROGEN, BLOOD 22 mg/dL (7-18)
--- NOTE | 2022-05-18 12:49 | NUR ---
PT ASLEEPY NOW NO PAIN
--- NOTE | 2022-05-18 14:11 | NUR ---
WATING FOR MEDICALE FLOOR BED
--- NOTE | 2022-05-18 15:30 | NUR ---
BLOOD NILSA FREITAS
--- NOTE | 2022-05-18 16:52 | NUR ---
[facility] CALLED TRANSVERSE ABDOMINAL MUSCLE SURGEON PAGED.
[2022-05-18] MEDS ORDERED: IV 1/2NS 1000 ML 1,000 ML IV PRN (18:00)
[2022-05-18] MEDS ORDERED: Z GUARD REMEDY 4 OZ OINT TP PRN (18:00)
[2022-05-18] MEDS ORDERED: ACETAMINOPHEN 325 MG TABLET PO PRN (18:00)
[2022-05-18] MEDS ORDERED: MAG HYDROX/AL HYDROX/SIMETH 30 ML UDC PO PRN (18:00)
[2022-05-18] MEDS ORDERED: ONDANSETRON HCL/PF 4 MG/2 ML VIAL IVP PRN (18:00)
--- NOTE | 2022-05-18 18:24 | NUR ---
WATING FOR BED
[2022-05-18] MEDS ORDERED: ENOXAPARIN SODIUM 30 MG/0.3 ML DISP.SYRIN ONE (19:03)
[2022-05-18] MEDS: ENOXAPARIN SODIUM 30 MG/0.3 ML DISP.SYRIN SQ SCH (19:11)
--- NOTE | 2022-05-18 19:44 | NUR ---
HAND OFF TO KRISTEN SETHI
--- NOTE | 2022-05-18 19:57 | NUR ---
REPORT GIVEN TO NAVDEEP BILLINGS
--- NOTE | 2022-05-18 20:27 | NUR ---
PT BEING TRANSFERRED TO 306 VIA ACLS
[2022-05-18 20:30] VITALS: BP 136/80
--- NOTE | 2022-05-18 20:35 | NUR ---
RN NOTES; PT RECEIVED FROM ER WITH ANTONIA IN RM 306-1.AAOX2-3.RAUL WELL IN RM AIR.NO SIGN SOB/DISTRESS NOTED.PT WAS REORIENT THE RM.VERBALIZE UNDERSTANDING.IV ACCESS ON RAC 18G PATENT AND INTED.NO COMPLAINED OF PAIN/DISCOMFORT AT THIS TIME.CALL LIGHT WITHIN REACH.SAFETY MEASURE IN PLACE.BED LOCKED AND LOW POSITION.WILL CONTINUE TO MONITOR.
[2022-05-19 05:00] VITALS: BP 133/95
[2022-05-19 05:59] LABS: BILIRUBIN,URINE NEGATIVE (NEGATIVE); COLOR,URINE YELLOW (YELLOW); LEUKOCYTE ESTERASE ,URINE MODERATE (NEGATIVE); NITRITE, URINE POSITIVE (NEGATIVE); PROTEIN,URINE TRACE mg/dl (NEGATIVE); UGLUCOSE NEGATIVE (NEGATIVE)
[2022-05-19 06:07] LABS: BASOPHILS % (AUTO) 0.9 % (0.0-2.0); EOSINOPHILS % (AUTO) 4.4 % (0.0-6.0); HEMATOCRIT 32 % (33-45); HEMOGLOBIN 10.1 g/dL (11.5-14.8); LYMPHOCYTES % (AUTO) 34.6 % (20.0-44.0); MEAN CORPUSCULAR HGB CONC 32 g/dl (31.0-36.0); MEAN CORPUSCULAR VOLUME 84 fL (82-100); MONOCYTES % (AUTO) 9.1 % (2.0-12.0); PLATELET COUNT (AUTO) 282 K/uL (150-450); RED BLOOD CELL COUNT(AUTO) 3.73 MIL/uL (4.0-5.2); WHITE BLOOD COUNT (AUTO) 5.6 K/uL (4.3-11.0)
[2022-05-19 06:08] LABS: LYMPHOCYTES # (AUTO) 1.9 K/uL (0.8-4.8); MONOCYTES # (AUTO) 0.5 K/uL (0.1-1.30); NEUTROPHILS # (AUTO) 2.8 K/uL (1.8-8.9)
[2022-05-19 06:16] LABS: BACTERIA,URINE Many /HPF (None Seen); SQUAMOUS EPITHELIAL CELL,UR Few /HPF (None Seen); WBC,URINE TOO NUMEROUS TO COUN /HPF (0-3)
[2022-05-19 06:21] LABS: CALCIUM, SERUM 9.1 mg/dL (8.5-10.1)
--- NOTE | 2022-05-19 06:41 | NUR ---
TEMPERATURE LOGGING OPERATOR CLOSING NOTE; PATIENT IN BED SLEEPING BUT EASY TO AROUSED.RAUL WELL IN RM AIR.NO SIGN SOB/DISTRESS NOTED.ALL NEEDS ATTENDED.DUE MEDS GIVEN ORDERED.IV ACCESS ON INDIRA MIDLINE PATENT AND INTACT. CALL LIGHT WITHIN REACH.SAFETY MEASURED IN PLACE. BED LOW AND LOCKED POSITION.WILL ENDORSE TO NEXT SHIFT.
--- NOTE | 2022-05-19 07:30 | NUR ---
CONFECTIONERY DROPS MACHINE OPERATOR OPENING NOTES; RECEIVED PATIENT ON BED AWAKE AND VERBALLY RESPONSIVE , A/O X 3 ROOM AIR.NO SIGN SOB/DISTRESS NOTED .IV ACCESS ON RAC # 18G PATENT AND INTACT .NO C/O OF PAIN/DISCOMFORT AT THIS TIME. CALL LIGHT WITHIN REACH. SAFETY MEASURE IN PLACE.BED LOCKED AND IN LOWEST POSITION. WILL CONTINUE TO MONITOR.
[2022-05-19 08:00] VITALS: BP 157/59
--- NOTE | 2022-05-19 08:30 | NUR ---
rn patient removed iv access will reinsert later.
--- NOTE | 2022-05-19 09:00 | NUR ---
ms rn meds given via po, tolerated well,all needs attended.
[2022-05-19] MEDS: PANTOPRAZOLE 40 MG TABLET.DR PO SCH (09:02)
[2022-05-19 09:26] LABS: IRON, SERUM 42 ug/dl (50-175); TOTAL IRON BINDING CAPACITY 249 ug/dl (250-450)
[2022-05-19] MEDS ORDERED: Medication Not On Formulary EA (Losartan Potassium 100 MG) PO SCH (09:30)
[2022-05-19] MEDS ORDERED: Medication Not On Formulary EA (Omeprazole 40 MG) PO SCH (09:30)
[2022-05-19] MEDS: MEROPENEM 1 G in IV NS 0.9% 100 ML IV SCH ×2 (09:30→22:36)
[2022-05-19 09:39] LABS: FERRITIN 51 ng/mL (8-388)
[2022-05-19] MEDS: LOSARTAN POTASSIUM 50 MG TABLET PO SCH (11:22)
[2022-05-19] MEDS ORDERED: MEROPENEM 1 G in IV NS 0.9% 100 ML IV SCH (13:00)
[2022-05-19 16:00] VITALS: BP 117/56
--- NOTE | 2022-05-19 16:00 | NUR ---
MS RN PATIENT REMOVE HER IV SITE, THIS IS THE 3RD TIME, NEW IV SITE INSERTED AT RIGHT WRIST G24 W/ GOOD VENOUS OUTPUT.
[2022-05-19] MEDS: ENOXAPARIN SODIUM 30 MG/0.3 ML DISP.SYRIN SQ SCH (19:03)
--- NOTE | 2022-05-19 19:20 | NUR ---
TELE/RN OPENING NOTE RECEIVED PATIENT AMBULATING IN ROOM, HAD BM ON FLOOR, IV PULLED OUT WITH FLUIDS STILL RUNNING. INSTRUCTED PATIENT TO GO BACK TO BED. ADL CARE PERFORMED. PATIENT IS ALERT AND ORIENTED X 2-3 WITH PERIODS OF CONFUSION. DENIES PAIN AT THIS TIME. CONTINUES ON ROOM AIR WITH NO S/SX OF RESPIRATORY DISTRESS NOTED. NO IV ACCESS AT THIS TIME - WILL ATTEMPT TO PLACE NEW PIV. CONTINUES ON IV ABX. PATIENT HAD LARGE FORMED BM. TELE MONITOR PLACED BACK ON PATIENT WITH CURRENT READING SR. CALL LIGHT WITHIN REACH. ASPIRATION, FALL AND SAFETY PRECAUTIONS MAINTAINED. ALL NEEDS ATTENDED TO AT THIS TIME.
--- NOTE | 2022-05-19 19:50 | NUR ---
BREAKDOWN MAN CLOSING NOTES; RECEIVED PATIENT ON BED AWAKE AND VERBALLY RESPONSIVE , A/O X 3 ROOM AIR.NO SIGN SOB/DISTRESS NOTED . NEW IV ACCESS ON LEFT HAND # 22 G PATENT AND INTACT .NO C/O OF PAIN/DISCOMFORT AT THIS TIME. CALL LIGHT WITHIN REACH. SAFETY MEASURE IN PLACE.BED LOCKED AND IN LOWEST POSITION. ENDORSED TO NEXT SHIFT
[2022-05-19 20:00] VITALS: BP 141/94
--- NOTE | 2022-05-19 21:30 | NUR ---
TELE/RN NOTE MULTIPLE PERIPHERAL IV INSERTION ATTEMPTS WITH NO SUCCESS. NEW ORDER FROM DR. LANG FOR MIDLINE PLACEMENT. NURSING DIRECTOR OF SCIENCE KARTIK NOTIFIED.
--- NOTE | 2022-05-19 22:44 | NUR ---
TELE/RN NOTE MIDLINE #18G INSERTED TO RIGHT UPPER ARM WITH PATIENT TOLERATING WELL. NEW ORDER RECEIVED FROM CONTROL ROOM SUPERVISOR DR. LANG FOR BILATERAL SOFT WRIST RESTRAINTS D/T PATIENT PULLING IV LINES. BILATERAL SOFT WRIST RESTRAINTS PLACED. PATIENT CURRENTLY RESTING IN BED. IV ABX INFUSING THROUGH MIDLINE.
[2022-05-20] VITALS: BP 128/58
[2022-05-20 04:00] VITALS: BP 131/65
--- NOTE | 2022-05-20 04:00 | NUR ---
TELE/RN NOTE ORTHOSTATIC BPS: LYING - 131/65 SITTING - 147/73 STANDING - 140/68
--- NOTE | 2022-05-20 06:20 | NUR ---
TELE/RN CLOSING NOTE PATIENT CURRENTLY RESTING IN BED. AWAKE, ALERT AND ORIENTED X 2-3 WITH PERIODS OF CONFUSION. DENIES PAIN AT THIS TIME. CONTINUES ON ROOM AIR WITH NO S/SX OF RESPIRATORY DISTRESS NOTED. IV ACCESS TO RIGHT UPPER ARM MIDLINE #18G INTACT AND PATENT. CONTINUES ON IVF NS @ 75ML/HR. CONTINUES ON IV ABX. TELE MONITOR PLACE WITH CURRENT READING SR. CALL LIGHT WITHIN REACH. ASPIRATION, FALL AND SAFETY PRECAUTIONS MAINTAINED. WILL ENDORSE PLAN OF CARE TO ONCOMING SHIFT RN.
--- NOTE | 2022-05-20 07:42 | NUR ---
TELE/RN OPENING NOTE RECEIVED PATIENT AWAKE IN BED WITH AOX2-3, ABLE TO MAKE NEEDS KNOWN. ON ROOM AIR AND TOLERATING WELL, NOT IN ANY SIGNS OF PAIN AND RESPIRATORY DISTRESS, WITH JAC MIDLINE G18 WITH NS RUNNING AT 75 ML/HR. WITH BUE/BLE REDNESS NOTED. B/B INCONTINENT. TELE MONITOR SHOWS CURRENT READING OF SR AT 71 BPM. CALL LIGHT AND TRAY TABLE WITHIN REACH. ASPIRATION, FALL AND SAFETY PRECAUTIONS IN PLACE. WILL CONTINUE TO MONITOR DURING MY SHIFT.
[2022-05-20] MEDS: PANTOPRAZOLE 40 MG TABLET.DR PO SCH (07:57)
[2022-05-20 08:00] VITALS: BP 138/66
[2022-05-20] MEDS: LOSARTAN POTASSIUM 50 MG TABLET PO SCH (08:55)
--- NOTE | 2022-05-20 09:06 | NUR ---
RN NOTES REMOVED IVF PER ORDER WELL TELE MONITORING. PATIENT BEING TRANSFERRED TO [facility]. TELE MONITOR AND LEADS RETURNED.
[2022-05-20 15:01] LABS: BASOPHILS % (AUTO) 0.4 % (0.0-2.0); HEMATOCRIT 32 % (33-45); HEMOGLOBIN 10.3 g/dL (11.5-14.8); LYMPHOCYTES # (AUTO) 1.9 K/uL (0.8-4.8); LYMPHOCYTES % (AUTO) 30.3 % (20.0-44.0); MEAN CORPUSCULAR HGB CONC 32 g/dl (31.0-36.0); MEAN CORPUSCULAR VOLUME 85 fL (82-100); MONOCYTES # (AUTO) 0.6 K/uL (0.1-1.30); MONOCYTES % (AUTO) 9.3 % (2.0-12.0); NEUTROPHILS # (AUTO) 3.4 K/uL (1.8-8.9); PLATELET COUNT (AUTO) 305 K/uL (150-450); RED BLOOD CELL COUNT(AUTO) 3.79 MIL/uL (4.0-5.2); WHITE BLOOD COUNT (AUTO) 6.1 K/uL (4.3-11.0)
[2022-05-20 15:10] LABS: CALCIUM, SERUM 8.6 mg/dL (8.5-10.1); MAGNESIUM 1.8 mg/dL (1.8-2.4); POTASSIUM 3.9 mmol/L (3.5-5.1)
[2022-05-20 16:00] VITALS: BP 127/59
[2022-05-20] MEDS: MEROPENEM 1 G in IV NS 0.9% 100 ML IV SCH (16:45)
[2022-05-20] MEDS: ENOXAPARIN SODIUM 30 MG/0.3 ML DISP.SYRIN SQ SCH (18:18)
--- NOTE | 2022-05-20 19:01 | NUR ---
MS RN CLOSING NOTES RECEIVED PATIENT AWAKE IN BED WITH AOX2-3, ABLE TO MAKE NEEDS KNOWN. ON ROOM AIR AND TOLERATING WELL, NOT IN ANY SIGNS OF PAIN AND RESPIRATORY DISTRESS, WITH JAC MIDLINE G18 WITH MERREM 1 G IN 0.9% NS 100 ML RUNNING FOR 3 HOURS. BUE/BLE REDNESS NOTED. PATIENT IS NO LONGER ON TELE MONITOR. CALL LIGHT AND TRAY TABLE WITHIN REACH, WITH SIDERAILS X3 UP, BED ALARM ON. WILL ENDORSE TO THE NEXT NURSE.
--- NOTE | 2022-05-20 19:40 | NUR ---
MS RN NOTE PATIENT AWAKE IN BED, ALERT/ORIENTED X 2, PT ABLE TO MAKE NEEDS KNOWN. PT STABLE ON RA, NO S/S OF DISTRESS OR SOB NOTED, BREATHING EVEN AND UNLABORED. JAC MIDLINE #18G INTACT AND SALINE LOCKED. SAFETY MEASURES IN PLACE: CALL LIGHT WITHIN REACH, SIDE RAILS UP X 3, BED LOCKED IN LOWEST POSITION, BED ALARM ON. WILL CONTINUE TO MONITOR PATIENT
[2022-05-20 20:00] VITALS: BP 109/48
--- NOTE | 2022-05-21 00:34 | NUR ---
MS RN NOTE PATIENT PULLED OUT JAC MIDLINE, PRESSURE AND DRESSING APPLIED. MINIMAL BLEEDING. NEW IV INSERTED IN LEFT WRIST #24G
--- NOTE | 2022-05-21 04:00 | NUR ---
MS RN NOTE PATIENT PULLED OUT IV AGAIN, RN ATTEMPTED TO INSERT NEW IV BUT PATIENT BECAME ANGRY AND ATTEMPTED TO HIT RN
[2022-05-21] MEDS: MEROPENEM 1 G in IV NS 0.9% 100 ML IV SCH ×2 (06:10→17:08)
--- NOTE | 2022-05-21 07:27 | NUR ---
MS RN OPENING NOTE RECEIVED PT ASLEEP IN BED, EASILY AROUSED. A/O X2, WITH PERIODS OF CONFUSION. REORIENTED PT NEEDED. ON RA TOLERATING WELL. NO SOB NOTED. NOT IN ANY SIGN OF RESPIRATORY DISTRESS. IV ACCESS IN L WRIST G #20 INTACT AND PATENT. SAFETY MEASURES IN PLACE: BED IN LOWEST AND LOCKED POSITION, SIDE RAILS UPX2, CALL LIGHT WITHIN REACH. WILL CONTINUE TO MONITOR PT.
--- NOTE | 2022-05-21 07:35 | NUR ---
MS RN CLOSING NOTE PATIENT SLEEPING IN BED, ALERT/ORIENTED X 2, PT ABLE TO MAKE NEEDS KNOWN. PT STABLE ON RA, NO S/S OF DISTRESS OR SOB NOTED, BREATHING EVEN AND UNLABORED. LEFT WRIST #20G IV ACCESS INTACT AND INFUSING MERREM @ 33.33 ML/HR, ORDER FOR MIDLINE PLACED. SUSPECT SCABIES D/T PATIENT CONSTANTLY SCRATCHING SKIN, WOUND CARE CONSULT PLACED. BILATERAL SOFT WRIST RESTRAINTS IN PLACE D/T PATIENT PULLING OUT MULTIPLE IV'S. MEDICATIONS GIVEN ORDERED, PT NEEDS MET THROUGHOUT SHIFT. SAFETY MEASURES IN PLACE: CALL LIGHT WITHIN REACH, SIDE RAILS UP X 3, BED LOCKED IN LOWEST POSITION, BED ALARM ON. ENDORSED TO DAY SHIFT NURSE FOR CONTINUITY OF CARE
[2022-05-21] MEDS: LOSARTAN POTASSIUM 50 MG TABLET PO SCH (08:43)
[2022-05-21 10:11] LABS: CREATININE 0.9 mg/dL (0.6-1.3); POTASSIUM 3.9 mmol/L (3.5-5.1)
[2022-05-21 14:51] LABS: BASOPHILS # (AUTO) 0.1 K/uL (0.0-0.2); HEMATOCRIT 31 % (33-45); HEMOGLOBIN 10.2 g/dL (11.5-14.8); LYMPHOCYTES # (AUTO) 2.3 K/uL (0.8-4.8); MEAN CORPUSCULAR HGB CONC 33 g/dl (31.0-36.0); MEAN CORPUSCULAR VOLUME 84 fL (82-100); MONOCYTES # (AUTO) 0.6 K/uL (0.1-1.30); MONOCYTES % (AUTO) 9.7 % (2.0-12.0); NEUTROPHILS # (AUTO) 3.1 K/uL (1.8-8.9); NEUTROPHILS % (AUTO) 48.3 % (43.0-81.0); PLATELET COUNT (AUTO) 302 K/uL (150-450); RED BLOOD CELL COUNT(AUTO) 3.72 MIL/uL (4.0-5.2); WHITE BLOOD COUNT (AUTO) 6.3 K/uL (4.3-11.0)
[2022-05-21] MEDS: ENOXAPARIN SODIUM 30 MG/0.3 ML DISP.SYRIN SQ SCH (18:09)
--- NOTE | 2022-05-21 18:31 | NUR ---
MS RN CLOSING NOTE PT AWAKE IN BED. A/O X2, WITH PERIODS OF CONFUSION. REORIENTED PT NEEDED. ON RA, TOLERATING WELL. NO SOB NOTED. NOT IN ANY SIGN OF RESPIRATORY DISTRESS. IV ACCESS IN INDIRA MIDLINE G #18 INTACT AND PATENT. ALL NEEDS ATTENDED. KEPT CLEAN AND COMFORTABLE. SAFETY MEASURES IN PLACE: BED IN LOWEST AND LOCKED POSITION, SIDE RAILS UPX2, CALL LIGHT WITHIN REACH. WILL ENDORSE TO AUTOMATION/CONTROLS MANAGER NURSE FOR JERO.
--- NOTE | 2022-05-21 19:15 | NUR ---
RN opening notes Pt is sitting in bed comfortably watching TV. Pt is alert and orientedX2 with episode of confusion. On room air. No SOB. No S/s of distress noted. INDIRA midline # 18 is clean, intact and flushes easily. Bilateral soft wrists restraint is intact, circulation is checked Q2 hr and skin is warm to touch. safety precautions is maintained. Bed at low position, brakes locked, side rails upX3, hob elevated, bed alarm is on and call light is within reach. Will continue to monitor.
[2022-05-21 20:00] VITALS: BP_SYST 159; BP_SYST 166; BP_DIAS 71; BP_DIAS 73
[2022-05-21] MEDS: MUPIROCIN OINT 2% 22 GM TUBE NS SCH (20:02)
[2022-05-21] MEDS ORDERED: MUPIROCIN OINT 2% 22 GM TUBE NS SCH (21:00)
--- NOTE | 2022-05-21 21:36 | NUR ---
RN notes Pt is complaining of generalized pain and requesting pain med. Informed and notified Dr. Valdez. ordered ibuprofen 600mg/po/q 6hr/prn as ordered. order carried out. will continue to monitor.
[2022-05-21 22:00] VITALS: BP 129/56
[2022-05-21] MEDS ORDERED: IBUPROFEN 600 MG TABLET PO PRN (22:00)
[2022-05-22] MEDS: MEROPENEM 1 G in IV NS 0.9% 100 ML IV SCH ×2 (03:25→16:22)
--- NOTE | 2022-05-22 06:52 | NUR ---
RN closing notes Pt is resting in bed comfortably. Pt is alert and orientedX2 with episode of confusion. On room air. No SOB. No S/s of distress noted. INDIRA midline # 18 is clean, intact and SL. Routine meds were given as ordered. Bilateral soft wrists restraint is intact, circulation is checked Q2 hr and skin is warm to touch. Kept Pt clean,dry and comfortable. Safety precautions is maintained. Bed at low position, brakes locked, side rails upX3, hob elevated, bed alarm is on and call light is within reach. Will endorse to am nurse for JERO.
--- NOTE | 2022-05-22 07:26 | NUR ---
MS RN OPENING NOTE RECEIVED PT AWAKE IN BED. A/O X2, WITH PERIODS OF CONFUSION. REORIENTED PT NEEDED. ON RA, TOLERATING WELL. NO SOB NOTED. NOT IN ANY SIGN OF RESPIRATORY DISTRESS. IV ACCESS IN INDIRA MIDLINE G #18 INTACT AND PATENT. BILATERAL SOFT WRISTS RESTRAINTS IN PLACE ORDERED WITH NO CIRCULATION ISSUES NOTED. SAFETY MEASURES IN PLACE: BED IN LOWEST AND LOCKED POSITION, SIDE RAILS UPX2, CALL LIGHT WITHIN REACH. WILL CONTINUE TO MONITOR PT.
[2022-05-22] MEDS: MUPIROCIN OINT 2% 22 GM TUBE NS SCH (09:04)
[2022-05-22 09:14] VITALS: BP 132/80
[2022-05-22] MEDS: LOSARTAN POTASSIUM 50 MG TABLET PO SCH (09:14)
[2022-05-22] MEDS ORDERED: ERTA1VIA4 IJ (14:21)
[2022-05-22] MEDS: ENOXAPARIN SODIUM 30 MG/0.3 ML DISP.SYRIN SQ SCH (19:16)
--- NOTE | 2022-05-22 19:27 | NUR ---
MS RN CLOSING NOTE PT AWAKE IN BED. A/O X2, WITH PERIODS OF CONFUSION. REORIENTED PT NEEDED. ON RA, TOLERATING WELL. NO SOB NOTED. NOT IN ANY SIGN OF RESPIRATORY DISTRESS. IV ACCESS IN INDIRA MIDLINE G #18 INTACT AND PATENT. BILATERAL SOFT WRISTS RESTRAINTS IN PLACE ORDERED WITH NO CIRCULATION ISSUES NOTED. ALL NEEDS ATTENDED. KEPT CLEAN AND COMFORTABLE. PT IS DISCHARGE, WAITING FOR HER SON TO PICK HER UP. PHOTOGRAPHS OF SKIN ISSUES TAKEN AND FILED IN THE CHART. ALL BELONGINGS ACCOUNTED FOR. ENDORSED TO ROLL BUILDER NURSEKEITH OF PT'S DISCHARGE. REPORT GIVEN EARLIER TO NAVDEEP BURRELL OF [facility]. SAFETY MEASURES IN PLACE: BED IN LOWEST AND LOCKED POSITION, SIDE RAILS UPX2, CALL LIGHT WITHIN REACH.
--- NOTE | 2022-05-22 20:30 | NUR ---
MS GAME DEVELOPER NOTE PATIENT PICKED UP FOR DISCHARGE BY SON, DISCHARGE PAPERS GIVEN TO SON. PATIENT STABLE ON RA, NO S/S OF DISTRESS OR SOB NOTED, BREATHING EVEN UNLABORED. IV REMOVED AND DRESSING APPLIED. BED BATH PERFORMED ON PATIENT, DIAPER PLACED ON PATIENT. ALL BELONGINGS GIVEN TO SON. PATIENT TAKEN DOWN TO CAR BY DOUGH MOLDER IN STABLE CONDITION
== END 2022-05-22 20:35 | DRG 73 ==
LOC: ER 09:38 → TRANSITION 18:02 → MED 20:11 → TELE 05-19 02:43 → MED 05-20 11:17
PROVIDERS: ADMIT Nurse Practitioner Family; ATTEND Nurse Practitioner Family
PROC: 05HB33Z Insertion of Infusion Device into Right Basilic Vein, Percutaneous Approach (ICD-10-PCS; principal; 2022-05-19)
PROC: 05HC33Z Insertion of Infusion Device into Left Basilic Vein, Percutaneous Approach (ICD-10-PCS; 2022-05-21)
DX: G90.8 Other disorders of autonomic nervous system (principal); G93.41 Metabolic encephalopathy; N39.0 Urinary tract infection, site not specified; R62.7 Adult failure to thrive; I25.10 Atherosclerotic heart disease of native coronary artery without angina pectoris; Z20.822 Contact with and (suspected) exposure to COVID-19; E78.5 Hyperlipidemia, unspecified; M79.7 Fibromyalgia; Z96.643 Presence of artificial hip joint, bilateral; Z98.2 Presence of cerebrospinal fluid drainage device; Z88.2 Allergy status to sulfonamides; Z79.899 Other long term (current) drug therapy; Z87.440 Personal history of urinary (tract) infections; D64.9 Anemia, unspecified; R79.89 Other specified abnormal findings of blood chemistry; B96.20 Unspecified Escherichia coli [E. coli] as the cause of diseases classified elsewhere; I10 Essential (primary) hypertension; I70.0 Atherosclerosis of aorta; R29.6 Repeated falls; Z87.891 Personal history of nicotine dependence; W19.XXXA Unspecified fall, initial encounter; Y92.9 Unspecified place or not applicable
CPT/HCPCS: 36410; 36415; 70450-TC; 71045-TC; 72125-TC; 80048-TC; 81001; 82550-TC; 82728-TC; 83540-TC; 83735-TC; 84484-TC; 85025-TC; 87081-TC; 87086-TC; 87186-TC; 93307-TC; 93880-TC; 97116-TC; 97530-TC; C9803; G0378; J1650; J2185; J3490; J7030

== ENCOUNTER 2022-06-29 00:13 | Inpatient (IN) | payer OTHER ==
[~2022-06-29] VITALS: Ht 160 cm; Wt 70.8 kg
[~2022-06-29 00:13] MED LIST changes: +CRAN500T3 PO; +ERTA1VIA4 IJ; -HYDR-4209 PO; +TRAM50TA2 PO; +VENL75TA4 PO
--- NOTE | 2022-06-29 00:20 | NUR ---
JAYME 102 FROM HOME FOR FOUND PT ON THE FLOOR. UNABLE TO GET UP . PER EMS ROLLED OVER FROM BED. PATIENT IN BED 09 ON MONITOR AND POX, AWAITING MD [place]WOOD.
--- NOTE | 2022-06-29 01:00 | NUR ---
BLOOD COLLECTED AND SENT TO LAB
[2022-06-29 01:03] LABS: BASOPHILS # (AUTO) 0.1 K/uL (0.0-0.2); BASOPHILS % (AUTO) 1.5 % (0.0-2.0); EOSINOPHILS % (AUTO) 7.7 % (0.0-6.0); HEMATOCRIT 33 % (33-45); HEMOGLOBIN 10.5 g/dL (11.5-14.8); LYMPHOCYTES # (AUTO) 2.3 K/uL (0.8-4.8); LYMPHOCYTES % (AUTO) 36.2 % (20.0-44.0); MEAN CORPUSCULAR HGB CONC 32 g/dl (31.0-36.0); MEAN CORPUSCULAR VOLUME 87 fL (82-100); MONOCYTES # (AUTO) 0.6 K/uL (0.1-1.30); MONOCYTES % (AUTO) 9.9 % (2.0-12.0); NEUTROPHILS # (AUTO) 2.8 K/uL (1.8-8.9); NEUTROPHILS % (AUTO) 44.7 % (43.0-81.0); PLATELET COUNT (AUTO) 295 K/uL (150-450); RED BLOOD CELL COUNT(AUTO) 3.82 MIL/uL (4.0-5.2); WHITE BLOOD COUNT (AUTO) 6.3 K/uL (4.3-11.0)
[2022-06-29 01:11] LABS: CALCIUM, SERUM 8.7 mg/dL (8.5-10.1); CARBON DIOXIDE 18 mmol/L (21-32); CHLORIDE 111 mmol/L (98-107); CREATININE 1.5 mg/dL (0.6-1.3); GLUCOSE 92 mg/dL (74-106); POTASSIUM 3.7 mmol/L (3.5-5.1); SODIUM SERUM 141 mmol/L (136-145); UREA NITROGEN, BLOOD 39 mg/dL (7-18)
[2022-06-29 01:17] LABS: ALANINE AMINOTRANSFERASE 10 U/L (12-78); ALBUMIN 3.2 g/dL (3.4-5.0); ALKALINE PHOSPHATASE 88 U/L (46-116); ASPARTATE AMINOTRANSFERASE 12 U/L (15-37); BILIRUBIN,TOTAL 0.1 mg/dL (0.2-1.0); LIPASE 278 U/L (73-393); TOTAL PROTEIN, SERUM 6.8 g/dL (6.4-8.2)
--- NOTE | 2022-06-29 01:28 | NUR ---
COVID SWAB DONE AND SENT TO LAB
[2022-06-29 01:56] LABS: BILIRUBIN,URINE NEGATIVE (NEGATIVE); COLOR,URINE YELLOW (YELLOW); LEUKOCYTE ESTERASE ,URINE LARGE (NEGATIVE); NITRITE, URINE NEGATIVE (NEGATIVE); PH,URINE 5.5 (5.0-8.0); PROTEIN,URINE NEGATIVE (NEGATIVE); UGLUCOSE NEGATIVE (NEGATIVE); UROBILINOGEN,URINE 0.2 EU/dL (0.2)
[2022-06-29 02:10] LABS: BACTERIA,URINE Moderate /HPF (None Seen); SQUAMOUS EPITHELIAL CELL,UR Few /HPF (None Seen); WBC,URINE 51-80 /HPF (0-3)
[2022-06-29] MEDS ORDERED: CEFTRIAXONE 1GM BAG (ER ONLY) 1 GM/50 ML PIGGYBACK IV ONE (02:30)
[2022-06-29] MEDS ORDERED: CEFTRIAXONE 1GM BAG (ER ONLY) 50 ML IV ONE (02:42)
--- NOTE | 2022-06-29 03:46 | NUR ---
RECIEVED AUTH FOR PT TO BE ADMITED FOR OBSERVATION. [facility] DROPPER ASSEMBLER PAGED FOR PANEL.
[2022-06-29] MEDS ORDERED: Z GUARD REMEDY 4 OZ OINT TP PRN (04:00)
[2022-06-29] MEDS ORDERED: ACETAMINOPHEN 325 MG TABLET PO PRN (04:00)
[2022-06-29] MEDS ORDERED: HYDROCODONE/APAP 5/325MG TABLET PO PRN (04:00)
[2022-06-29] MEDS ORDERED: ONDANSETRON HCL/PF 4 MG/2 ML VIAL IVP PRN (04:00)
--- NOTE | 2022-06-29 05:15 | NUR ---
PT CHANGED, REMAINS IN BED COMFORTABLY. WILL TRANSFER TO UNIT SOON.
--- NOTE | 2022-06-29 06:06 | NUR ---
ASKED PT FOR MED RECON. PT STATED SHE TAKES PILLS OUT OF A PILL CONTAINER. NOT SURE WHICH MEDICATIONS SHE TAKES.
--- NOTE | 2022-06-29 06:06 | NUR ---
REPORT GIVEN TO RN.
--- NOTE | 2022-06-29 06:23 | NUR ---
PT TO 114 VIA ANTONIA.
--- NOTE | 2022-06-29 06:40 | NUR ---
RECEIVED PATIENT FROM ER VIA STRETCHER ACCOMPANIED BY A NURSE, [facility] [employer]ER WITH ADMITTING DX FAILURE TO THRIVE, UTI, EMERSON PATIENT A/O X4 ABLE TO VERBALIZE NEEDS AND CONCERNS, MED SURGE STATUS, AT ROOM AIR NO SOB/DISTRESS NOTED, WITH IV SITE RIGHT 24G PATENT AND INTACT, DENIES ANY PAIN OR DISCOMFORT, ORIENTED TO ROOM, CALL LIGHT W/I REACH, ALL SAFETY MEASURES IN PLACE, WILL ENDORSE CONTINUITY OF CARE TO ONCOMING NURSE, VS 120/72, 98.3, 55, 97%, 18.
--- NOTE | 2022-06-29 07:30 | NUR ---
RN OPENING NOTES RECEIVED PATIENT IN BED, ASLEEP, EASILY AROUSED. PATIENT IS A/O X4, VERBALLY RESPONSIVE. NO SIGNS OF ACUTE DISTRESS NOTED. ON ROOM AIR, NO SOB NOTED, BREATHING EVEN AND UNLABORED. NOTED WITH IV ACCESS ON RIGHT ANTECUBITAL AREA #22G, INTACT AND PATENT SALINE LOCKED. PATIENT NEWLY ADMITTED, WITH DX OF FTT/EMERSON/UTI. SAFETY MEASURE IN PLACE.BED IN LOWEST AND LOCKED POSITION, SIDE RAILS UP X2, CALL LIGHT PLACED WITHIN EASY REACH. BED ALARM ON. WILL CONTINUE TO MONITOR PATIENT.
[2022-06-29 08:00] VITALS: BP 131/63
[2022-06-29] MEDS: PANTOPRAZOLE 40 MG TABLET.DR PO SCH (08:14)
[2022-06-29 08:20] LABS: CALCIUM, SERUM 8.6 mg/dL (8.5-10.1); CARBON DIOXIDE 16 mmol/L (21-32); CHLORIDE 114 mmol/L (98-107); CREATININE 1.4 mg/dL (0.6-1.3); GLUCOSE 87 mg/dL (74-106); MAGNESIUM 2.4 mg/dL (1.8-2.4); POTASSIUM 3.6 mmol/L (3.5-5.1); SODIUM SERUM 142 mmol/L (136-145); UREA NITROGEN, BLOOD 37 mg/dL (7-18)
[2022-06-29 08:22] LABS: IRON, SERUM 46 ug/dl (50-175); TOTAL IRON BINDING CAPACITY 285 ug/dl (250-450)
[2022-06-29 08:35] LABS: FERRITIN 44 ng/mL (8-388); THYROID STIMULATING HORMONE 3.549 uIU/mL (0.358-3.74)
[2022-06-29 08:53] LABS: BASOPHILS % (AUTO) 0.6 % (0.0-2.0); HEMATOCRIT 33 % (33-45); HEMOGLOBIN 10.1 g/dL (11.5-14.8); LYMPHOCYTES # (AUTO) 1.5 K/uL (0.8-4.8); LYMPHOCYTES % (AUTO) 21.9 % (20.0-44.0); MEAN CORPUSCULAR HGB CONC 31 g/dl (31.0-36.0); MEAN CORPUSCULAR VOLUME 88 fL (82-100); MONOCYTES # (AUTO) 0.6 K/uL (0.1-1.30); MONOCYTES % (AUTO) 8.2 % (2.0-12.0); NEUTROPHILS # (AUTO) 4.3 K/uL (1.8-8.9); NEUTROPHILS % (AUTO) 62.3 % (43.0-81.0); PLATELET COUNT (AUTO) 289 K/uL (150-450); RED BLOOD CELL COUNT(AUTO) 3.74 MIL/uL (4.0-5.2); WHITE BLOOD COUNT (AUTO) 6.9 K/uL (4.3-11.0)
[2022-06-29] MEDS ORDERED: NITROFURANTOIN/MONOHYDRATE MACROCRYSTALS 100 MG CAPSULE PO SCH (09:00)
--- NOTE | 2022-06-29 09:30 | NUR ---
RN NOTE BODY ASSESSMENT DONE FOR PATIENT. NOTED WITH MULTIPLE SCATTERED SCRATCHES AND DRY SCABS ON BOTH LOWER EXTREMITIES, RIGHT FOOT AND BOTH UPPER EXTREMITIES. RIGHT WRIST NOTED WITH DEFORMITY, PER PATIENT SHE FELL 2 YEARS AGO AND HAD HER WRIST BROKEN. ALSO NOTED WITH BILATERAL GROIN REDNESS SACRAL REDNESS, RIGHT BUTTOCKS NOTED WITH OPEN AREA, LEFT AND RIGHT HEEL REDNESS. NOTED WITH BILATERAL BREAST AUGMENTATION, BOTH BREAST FEELS HARD TO PALPATION AND NOTED WITH REDNESS. PHOTOS TAKEN, PLACED IN CHART, WOUND CONSULT ORDERED.
[2022-06-29] MEDS ORDERED: hydrALAZINE HCL 25 MG TABLET PO PRN (12:00)
[2022-06-29] MEDS ORDERED: TRAMADOL HCL 50 MG TABLET PO PRN (12:00)
[2022-06-29] MEDS: IV 1/2NS 1000 ML 1,000 ML IV PRN (15:34)
[2022-06-29 16:00] VITALS: BP 136/62
--- NOTE | 2022-06-29 18:41 | NUR ---
RN CLOSING NOTES PATIENT RSTING IN BED, EASILY AROUSED. NO SIGNS OF ACUTE DISTRESS NOTED. REMAINS STABLE ON ROOM AIR, NO SOB NOTED, BREATHING EVEN AND UNLABORED. IV ACCESS PULLED OUT. TRIED TO REINSERT X3, BUT UNSUCCESSFUL. DENIED ANY PAIN OR DISCOMFORT AT THIS TIME. ALL DUE MEDS GIVEN, TAKEN WELL. NO SIGNIFICANT CHANGE THIS SHIFT. SAFETY MEASURE MAINTAINED. WILL ENDORSE TO NEXT SHIFT FOR CONTINUITY OF CARE.
--- NOTE | 2022-06-29 19:30 | NUR ---
RECEIVED PATIENT IN BED,AWAKE. PATIENT IS A/O X2-3, CONFUSED. VERBALLY RESPONSIVE. NO SIGNS OF ACUTE DISTRESS NOTED. ON ROOM AIR, NO SOB NOTED, BREATHING EVEN AND UNLABORED. NOTED NO IV ACCESS. SAFETY MEASURE IN PLACE. BED IN LOWEST AND LOCKED POSITION, SIDE RAILS UP X2, CALL LIGHT PLACED WITHIN EASY REACH. BED ALARM ON. WILL CONTINUE PLAN OF CARE.
--- NOTE | 2022-06-29 21:00 | NUR ---
MID LINE INSERTED ON JAC G#18. PT TOLERATED PROCEDURE WELL.
--- NOTE | 2022-06-29 22:15 | NUR ---
PT PULLED OUT JAC ML. PT IS CONFUSED AND VERBALIZED SHE DOES NOT KNOW WHAT SHE IS DOING. INSERTED IV ACCESS ON RIGHT ANTECUBITAL AREA #22G, SOFT NOE WRIST RESTRAINTS PLACED ORDERED.
[2022-06-29 22:32] LABS: CREATININE, URINE 41.5 MG/DL (30.0-125.0)
[2022-06-30] MEDS: IV 1/2NS 1000 ML 1,000 ML IV PRN (05:17)
--- NOTE | 2022-06-30 07:15 | NUR ---
PATIENT IN BED,AWAKE. PATIENT IS A/O X2-3, CONFUSED. VERBALLY RESPONSIVE. NO SIGNS OF ACUTE DISTRESS NOTED. ON ROOM AIR, NO SOB NOTED, BREATHING EVEN AND UNLABORED. IV ACCESS ON RT AC INFUSING 1/2 NS AT 75 ML/HR. SAFETY MEASURE IN PLACE. RESTRAINTS IN PLACE, CHECKED ROUTINELY, BED IN LOWEST AND LOCKED POSITION, SIDE RAILS UP X2, CALL LIGHT PLACED WITHIN EASY REACH. BED ALARM ON. WILL ENDORSE TO NEXT NURSE ON DUTY FOR CONTINUITY OF CARE.
[2022-06-30] MEDS ORDERED: Medication Not On Formulary EA (Omeprazole 40 MG) PO SCH (07:30)
[2022-06-30 08:29] VITALS: BP 106/56
[2022-06-30] MEDS: PANTOPRAZOLE 40 MG TABLET.DR PO SCH (08:31)
[2022-06-30] MEDS ORDERED: MULTIVIT W/MINERALS 1 TAB TABLET PO SCH (09:00)
[2022-06-30] MEDS ORDERED: LOSARTAN POTASSIUM 50 MG TABLET PO SCH (09:00)
[2022-06-30] MEDS ORDERED: CEFTRIAXONE 1 G in IV D5W 50 ML IV SCH (09:00)
[2022-06-30] MEDS ORDERED: Medication Not On Formulary EA (Cranberry Extract (Cranberry) 500 MG) PO SCH (09:00)
[2022-06-30] MEDS ORDERED: CHOLECALCIFEROL 1,000 UNIT TABLET (VIT D3) PO SCH (09:00)
[2022-06-30] MEDS ORDERED: ASCORBIC ACID 500 MG TABLET PO SCH (09:00)
[2022-06-30 10:50] LABS: BASOPHILS % (AUTO) 0.6 % (0.0-2.0); EOSINOPHILS % (AUTO) 6.5 % (0.0-6.0); HEMATOCRIT 31 % (33-45); HEMOGLOBIN 9.7 g/dL (11.5-14.8); LYMPHOCYTES # (AUTO) 1.6 K/uL (0.8-4.8); LYMPHOCYTES % (AUTO) 26.1 % (20.0-44.0); MEAN CORPUSCULAR HGB CONC 32 g/dl (31.0-36.0); MEAN CORPUSCULAR VOLUME 86 fL (82-100); MONOCYTES # (AUTO) 0.5 K/uL (0.1-1.30); MONOCYTES % (AUTO) 8.6 % (2.0-12.0); NEUTROPHILS # (AUTO) 3.6 K/uL (1.8-8.9); NEUTROPHILS % (AUTO) 58.2 % (43.0-81.0); PLATELET COUNT (AUTO) 274 K/uL (150-450); RED BLOOD CELL COUNT(AUTO) 3.53 MIL/uL (4.0-5.2); WHITE BLOOD COUNT (AUTO) 6.2 K/uL (4.3-11.0)
[2022-06-30 11:10] LABS: CALCIUM, SERUM 8.5 mg/dL (8.5-10.1); CREATININE 1.1 mg/dL (0.6-1.3); MAGNESIUM 2.1 mg/dL (1.8-2.4); PHOSPHORUS 3.6 mg/dL (2.5-4.9); POTASSIUM 3.3 mmol/L (3.5-5.1)
[2022-06-30] MEDS ORDERED: CEFT1FRO2 IV (14:30)
--- NOTE | 2022-06-30 18:30 | NUR ---
END OF SHIFT SUMMARY A/O X2. WITH PERIODS OF CONFUSION. FREQUENT REORIENTATION NEEDED. PATIENT WILL BE GOING TO [facility]. REPORT GIVEN TO NAVDEEP JI. SON WILL BE GOING TO EMERGENCY CARE TECH HIS MOM AND BRING HER TO [facility].
== END 2022-06-30 20:46 | DRG 682 ==
LOC: ER 00:28 → MEDSG1 04:51
PROVIDERS: ADMIT Nurse Practitioner Acute Care; ATTEND Nurse Practitioner Acute Care
PROC: 05HB33Z Insertion of Infusion Device into Right Basilic Vein, Percutaneous Approach (ICD-10-PCS; principal; 2022-06-29)
DX: N17.0 Acute kidney failure with tubular necrosis (principal); G93.41 Metabolic encephalopathy; N39.0 Urinary tract infection, site not specified; E44.1 Mild protein-calorie malnutrition; M79.7 Fibromyalgia; R62.7 Adult failure to thrive; E86.0 Dehydration; Z20.822 Contact with and (suspected) exposure to COVID-19; I10 Essential (primary) hypertension; Z96.643 Presence of artificial hip joint, bilateral; Z98.2 Presence of cerebrospinal fluid drainage device; Z88.2 Allergy status to sulfonamides; Z79.899 Other long term (current) drug therapy; E88.09 Other disorders of plasma-protein metabolism, not elsewhere classified; E78.5 Hyperlipidemia, unspecified; B96.89 Other specified bacterial agents as the cause of diseases classified elsewhere; Y92.9 Unspecified place or not applicable; W19.XXXA Unspecified fall, initial encounter; Z86.69 Personal history of other diseases of the nervous system and sense organs; E86.1 Hypovolemia; E87.6 Hypokalemia; Z87.440 Personal history of urinary (tract) infections; Z87.891 Personal history of nicotine dependence
CPT/HCPCS: 36415; 70450-TC; 71045-TC; 73521; 76770-TC; 80048-TC; 80076-TC; 81001; 82550-TC; 82570-TC; 82728-TC; 83540-TC; 83690-TC; 83735-TC; 84100-TC; 84300-TC; 84443-TC; 84484-TC; 85025-TC; 85730-TC; 87081-TC; 87086-TC; 87186-TC; 97116-TC; 97530-TC; C9803; G0378; J0696; J3490; J7060